=== PATIENT | female | born 1965 | race Caucasian/White ===

== ENCOUNTER 2020-06-24 06:12 | Outpatient (REF) | payer OTHER, SELFPAY ==
[2020-06-24 07:22] LABS: Hematocrit 40.3 % (37-47); Hemoglobin 12.6 g/dl (12.0-16.0); Mean Corpuscular HGB Conc 31.3 g/dl (31.0-35.0); Mean Corpuscular Hemoglobin 28.8 pg (27.0-33.0); Mean Corpuscular Volume 92.2 fL (80-98); Mean Platelet Volume 12.5 fL (9.4-12.3); Platelet Count 257 X10*3/uL (160-400); Red Blood Count 4.37 X10*6/uL (4.20-5.50); Red Cell Distribution Width 13.5 % (11.0-16.0); White Blood Count 7.2 X10*3/uL (4.8-10.8)
[2020-06-24 08:06] LABS: Alanine Aminotransferase 54 U/L (0-31); Albumin Level 4.3 g/dL (3.5-5.0); Alkaline Phosphatase 64 U/L (39-117); Anion Gap 12 (12-20); Aspartate Amino Transferase 41 U/L (5-31); Bilirubin Total 0.5 mg/dL (0.0-1.0); Blood Urea Nitrogen 19 mg/dL (9-16); Calcium 9.5 mg/dL (8.4-10.2); Carbon Dioxide 29 mmol/L (22-29); Chloride 106 mmol/L (96-108); Cholesterol 192 mg/dL; Estimated Glomerular Filt Rate > 60; Glucose Fasting 91 mg/dL (60-99); HDL Cholesterol 61 mg/dL; LDL Cholesterol Calculated 116 mg/dl; Potassium 4.6 mmol/l (3.3-5.1); Sodium 142 mmol/L (135-145); Total Protein 6.8 g/dL (6.5-8.0); Triglycerides 79 mg/dL
== END 2020-06-24 06:13 | disposition home or self-care (01) ==
LOC: HO.LAB 06:12
PROVIDERS: PCP Internal Medicine; Visit Provider Internal Medicine
DX: R94.5 Abnormal results of liver function studies (principal); J45.909 Unspecified asthma, uncomplicated; E78.2 Mixed hyperlipidemia
CPT/HCPCS: 36415; 80053; 80061; 85027

== ENCOUNTER 2020-08-02 07:08 | Day surgery (SDC) | payer OTHER, SELFPAY ==
[2020-08-01 09:51] VITALS: BMI 29.1
--- NOTE | 2020-08-01 10:06 | HO.ANESPROP2 ---
Documented by User: Kathi Schuler 08/01/20 10:15 HPI - Anesthesia Eval Consult details Narrative: 54yo F for Upper Endoscopy and Colon[facility] Past Medical History Medical History Anxiety Asthma FHx: colon cancer GERD (gastroesophageal reflux disease) History of mammogram Hypercholesterolemia Hypertension Hypothyroid Refused procedure, after thought Family History Family History Mother Myocardial infarct Colon cancer CVD (cardiovascular disease) Sister Colon cancer Surgical History Surgical History H/O colonoscopy Social History Social History Smoking Status: Never smoker Second Hand Smoke Exposure: No Use of substances other than those prescribed or required for medical reasons: No Advance Directives: No Advance Directives Information Provided: No Advance Directives on File: No Meds Allergies Allergy/AdvReac Type Severity Reaction Status Date / Time amoxicillin [Amoxicillin] Allergy Unknown UNKNOWN Verified 06/28/20 10:31 azithromycin Allergy Unknown rash Verified 06/28/20 10:31 penicillin V Allergy Unknown rash Verified 06/28/20 10:31 Home Medications Medication Instructions Recorded Confirmed Type albuterol sulfate 90 mcg/actuation 2 inh INHALATION Q6H PRN 06/28/20 07/11/20 History breath activated powder inhaler atorvastatin 20 mg tablet 20 mg PO DAILY 06/28/20 07/11/20 History cetirizine 10 mg tablet 10 mg PO DAILY 06/28/20 07/11/20 History fluticasone 250 mcg-salmeterol 50 1 inh INHALATION BID 06/28/20 07/11/20 History mcg/dose blistr powdr for inhalation lisinopril 20 mg tablet 20 mg PO DAILY 06/28/20 07/11/20 History montelukast 10 mg tablet 10 mg PO DAILY 06/28/20 07/11/20 History Exam Exam Date and Time: August 01, 2020 1006 Height,Weight and Vital Signs: Height 5 ft 5 in Weight 79.379 kg Pertinent Lab Results Pertinent Lab Results: Laboratory Tests 06/24/20 06/24/20 06:32 06:32 WBC 7.2 Hgb 12.6 Hct 40.3 Plt Count 257 Sodium 142 Potassium 4.6 Chloride 106 Carbon Dioxide 29 BUN 19 H Creatinine 0.91 Assessment and Plan Assessment Anesthesia Assessment: Chart Reviewed Documented by User: Vicki Soriano 08/02/20 07:37 PMFSH Past Medical History Medical History Anxiety Asthma FHx: colon cancer GERD (gastroesophageal reflux disease) History of mammogram Hypercholesterolemia Hypertension Hypothyroid Refused procedure, after thought Family History Family History Mother Myocardial infarct Colon cancer CVD (cardiovascular disease) Sister Colon cancer Surgical History Surgical History H/O colonoscopy Social History Social History Smoking Status: Never smoker Second Hand Smoke Exposure: No Use of substances other than those prescribed or required for medical reasons: No Advance Directives: No Advance Directives Information Provided: No Advance Directives on File: No Meds Allergies Allergy/AdvReac Type Severity Reaction Status Date / Time amoxicillin [Amoxicillin] Allergy Unknown UNKNOWN Verified 06/28/20 10:31 azithromycin Allergy Unknown rash Verified 06/28/20 10:31 penicillin V Allergy Unknown rash Verified 06/28/20 10:31 Home Medications Medication Instructions Recorded Confirmed Type albuterol sulfate 90 mcg/actuation 2 inh INHALATION Q6H PRN 06/28/20 07/11/20 History breath activated powder inhaler atorvastatin 20 mg tablet 20 mg PO DAILY 06/28/20 07/11/20 History cetirizine 10 mg tablet 10 mg PO DAILY 06/28/20 07/11/20 History fluticasone 250 mcg-salmeterol 50 1 inh INHALATION BID 06/28/20 07/11/20 History mcg/dose blistr powdr for inhalation lisinopril 20 mg tablet 20 mg PO DAILY 06/28/20 07/11/20 History montelukast 10 mg tablet 10 mg PO DAILY 06/28/20 07/11/20 History Exam Airway Mallampati Class: I TM Dist: >3cm Neck ROM: Full Loose/Missing/Broken Teeth: No Heart: RRR Lungs: CTA Assessment and Plan Assessment Anesthesia Assessment: Anesthesia Plan Discussed and Chart Reviewed Final Anesthetic Review NPO: Yes Final Preanesthetic Review: Meds/Allgs Chart Reviewed, Consent Obtained/Reviewed and Anes Risks/Benef Reviewed Patient Risk: Intermediate Procedure Risk: Intermediate Anesthetic Plan Anesthetic Plan: MAC: Disposition: Standard PACU
--- NOTE | 2020-08-02 07:25 | MHC.SHP ---
Pre-Procedural Eval Section B Chief Complaint: GERD,SCREENING Details of Present Illness: see H&P no changes Relevant Family History (Specify if Yes): No Relevant Social History: None Present Medications: see Short Stay Collaborative assessment Medical History: No relevant PMH History of Previous Operations: No relevant previous surgery Allergies: Allergies Allergy/AdvReac Type Severity Reaction Status Date / Time amoxicillin [Amoxicillin] Allergy Unknown UNKNOWN Verified 06/28/20 10:31 azithromycin Allergy Unknown rash Verified 06/28/20 10:31 penicillin V Allergy Unknown rash Verified 06/28/20 10:31 Review of Systems Sugical H&P ROS: Negative: Constitution, Cardiovascular, Respiratory, Neurological, Psychiatric, Hem-Onc, Allergic/Immunologic, Gastrointestinal, Genitourinary, Musculoskeletal, Integumentary, Endocrine and Eyes/Ears/Nose/Throat Exam Surgical H&P Exam: Normal: HEENT, Normal: Heart, Normal: Lungs, Normal: Extremities, Normal: Abdomen, Normal: Skin and Normal: Neurological Plan Diagnosis/Plan: Unchanged Patient has been examined and remains a candidate for the planned procedure
--- NOTE | 2020-08-02 07:29 | HO.ANESPROP2 ---
[facility] Past Medical History Medical History Anxiety Asthma FHx: colon cancer GERD (gastroesophageal reflux disease) History of mammogram Hypercholesterolemia Hypertension Hypothyroid Refused procedure, after thought Family History Family History Mother Myocardial infarct Colon cancer CVD (cardiovascular disease) Sister Colon cancer Surgical History Surgical History H/O colonoscopy Social History Social History Smoking Status: Never smoker Second Hand Smoke Exposure: No Use of substances other than those prescribed or required for medical reasons: No Advance Directives: No Advance Directives Information Provided: No Advance Directives on File: No Meds Allergies Allergy/AdvReac Type Severity Reaction Status Date / Time amoxicillin [Amoxicillin] Allergy Unknown UNKNOWN Verified 06/28/20 10:31 azithromycin Allergy Unknown rash Verified 06/28/20 10:31 penicillin V Allergy Unknown rash Verified 06/28/20 10:31 Home Medications Medication Instructions Recorded Confirmed Type albuterol sulfate 90 mcg/actuation 2 inh INHALATION Q6H PRN 06/28/20 07/11/20 History breath activated powder inhaler atorvastatin 20 mg tablet 20 mg PO DAILY 06/28/20 07/11/20 History cetirizine 10 mg tablet 10 mg PO DAILY 06/28/20 07/11/20 History fluticasone 250 mcg-salmeterol 50 1 inh INHALATION BID 06/28/20 07/11/20 History mcg/dose blistr powdr for inhalation lisinopril 20 mg tablet 20 mg PO DAILY 06/28/20 07/11/20 History montelukast 10 mg tablet 10 mg PO DAILY 06/28/20 07/11/20 History Exam Exam Date and Time: August 02, 2020 0729 Height,Weight and Vital Signs: Height 5 ft 5 in Weight 79.379 kg Airway Mallampati Class: I TM Dist: >3cm Neck ROM: Full Loose/Missing/Broken Teeth: No Heart: RRR Lungs: CTA
--- NOTE | 2020-08-02 07:33 | HO.ANESPROP2 ---
[facility] Past Medical History Medical History Anxiety Asthma FHx: colon cancer GERD (gastroesophageal reflux disease) History of mammogram Hypercholesterolemia Hypertension Hypothyroid Refused procedure, after thought Family History Family History Mother Myocardial infarct Colon cancer CVD (cardiovascular disease) Sister Colon cancer Surgical History Surgical History H/O colonoscopy Social History Social History Smoking Status: Never smoker Second Hand Smoke Exposure: No Use of substances other than those prescribed or required for medical reasons: No Advance Directives: No Advance Directives Information Provided: No Advance Directives on File: No Meds Allergies Allergy/AdvReac Type Severity Reaction Status Date / Time amoxicillin [Amoxicillin] Allergy Unknown UNKNOWN Verified 06/28/20 10:31 azithromycin Allergy Unknown rash Verified 06/28/20 10:31 penicillin V Allergy Unknown rash Verified 06/28/20 10:31 Home Medications Medication Instructions Recorded Confirmed Type albuterol sulfate 90 mcg/actuation 2 inh INHALATION Q6H PRN 06/28/20 07/11/20 History breath activated powder inhaler atorvastatin 20 mg tablet 20 mg PO DAILY 06/28/20 07/11/20 History cetirizine 10 mg tablet 10 mg PO DAILY 06/28/20 07/11/20 History fluticasone 250 mcg-salmeterol 50 1 inh INHALATION BID 06/28/20 07/11/20 History mcg/dose blistr powdr for inhalation lisinopril 20 mg tablet 20 mg PO DAILY 06/28/20 07/11/20 History montelukast 10 mg tablet 10 mg PO DAILY 06/28/20 07/11/20 History Exam Exam Date and Time: August 02, 2020 0733 Height,Weight and Vital Signs: Height 5 ft 5 in Weight 79.379 kg Assessment and Plan Assessment Anesthesia Assessment: Anesthesia Plan Discussed and Chart Reviewed Final Anesthetic Review NPO: Yes ASA Class: II Final Preanesthetic Review: Meds/Allgs Chart Reviewed, Consent Obtained/Reviewed and Anes Risks/Benef Reviewed Patient Risk: Intermediate Procedure Risk: Intermediate Anesthetic Plan Anesthetic Plan: MAC: Disposition: Standard PACU
[2020-08-02 07:34] VITALS: BP 147/80; PULSE 79; RESP 79; TEMP 36.6; O2SAT 99
[2020-08-02] MEDS: Lactated Ringers 1,000 ML 100 ML IVCONT (07:38)
[2020-08-02 08:14] VITALS: BP 109/62; PULSE 89; RESP 18; TEMP 36.5; O2SAT 97
--- NOTE | 2020-08-02 08:25 | PM.OP ---
Brief Operative Note Date of procedure: 08/02/20 Pre-op diagnosis: gerd, screening Post-op diagnosis: same (colon polyp) Procedure: egd,colon Surgeon: Fredy Cordero Anesthesia: MAC Estimated blood loss (mL): 5 Pathology: other (antral,egj biopsies, polpy at 20cm) Condition: stable Disposition: PACU
[2020-08-02 08:29] VITALS: BP 136/77; PULSE 69; RESP 15; TEMP 36.5; O2SAT 98
--- NOTE | 2020-08-02 08:38 | OP_ITS ---
SURGEON: Fredy Cordero MD INDICATIONS: 1. Gastroesophageal reflux disease. 2. Colon cancer screening. PREOPERATIVE DIAGNOSIS: POSTOPERATIVE DIAGNOSIS: PROCEDURE PERFORMED: ESTIMATED BLOOD LOSS: COMPLICATIONS: ANESTHESIA: ASSISTANTS: SPECIMENS: PROCEDURE: 1. Upper endoscopy with biopsy. 2. Colonoscopy to the terminal ileum with snare polypectomy. MEDICATIONS: Monitored anesthesia care. DESCRIPTION OF PROCEDURE: History and physical performed. The risks and benefits of the procedure were explained to the patient. Informed consent was obtained. The patient was placed in the left lateral decubitus position. The Olympus video gastroscope was introduced into the esophagus, stomach, and duodenum. Examination was performed and the scope was removed. She was repositioned for colonoscopy. A digital rectal exam was performed and was found to be normal. The Olympus pediatric video colonoscope was introduced into the rectum and advanced to the cecum without difficulty. The cecum was identified by transillumination, palpation, and identification of ileocecal valve. Examination was performed. The scope was removed. She tolerated both procedures well, was returned to recovery area in stable condition. FINDINGS: UPPER ENDOSCOPY: Esophagus: The esophagus showed a very mild distal esophagitis and small hiatal hernia. Stomach: The stomach showed no evidence of masses, ulcers or polyps. Duodenum: The bulb and second portion were normal. Biopsies were obtained from the EG junction and antrum. COLONOSCOPY: The terminal ileum was normal. The visualized colonic mucosa was normal. The quality of the prep was good. A single polyp at 20 cm measuring approximately 4-5 mm was removed with a snare and recovered via suction. No other polyps were identified. Retroflexed examination was normal. IMPRESSION: 1. Gastroesophageal reflux disease with very mild esophagitis. 2. Colon polyp. RECOMMENDATION: Follow up the biopsy results. MD FELISA Mckeon/SEAN / [id number]
== END 2020-08-02 09:05 | disposition home or self-care (01) ==
PROVIDERS: PCP Internal Medicine; Visit Provider Internal Medicine Gastroenterology
PROC: (CPT 45385; principal; 2020-08-02 08:30)
DX: Z12.11 Encounter for screening for malignant neoplasm of colon (principal); Z80.0 Family history of malignant neoplasm of digestive organs; Z86.010 Personal history of colon polyps; K63.5 Polyp of colon; K21.00 Gastro-esophageal reflux disease with esophagitis, without bleeding; K44.9 Diaphragmatic hernia without obstruction or gangrene; I10 Essential (primary) hypertension; J45.909 Unspecified asthma, uncomplicated; E78.00 Pure hypercholesterolemia, unspecified; Z79.51 Long term (current) use of inhaled steroids; Z79.899 Other long term (current) drug therapy; Z88.0 Allergy status to penicillin
CPT/HCPCS: 45385; 43239; 88305; 88342

== ENCOUNTER 2020-09-29 12:15 | Outpatient (REF) | payer OTHER, SELFPAY | END 2020-09-29 12:16 | disposition home or self-care (01) | LOC: HO.LAB 12:15 | PROVIDERS: Visit Provider Internal Medicine | DX: Z20.828 Contact with and (suspected) exposure to other viral communicable diseases (principal) | CPT/HCPCS: 36415; C9803; U0003 ==

== ENCOUNTER 2020-10-14 15:55 | Outpatient (REF) | payer OTHER, SELFPAY ==
--- NOTE | 2020-10-14 | MM_ITS ---
EXAMINATION: MM SCREENING DIGITAL BREAST TOMOSYNTHESIS, BILATERAL CLINICAL INFORMATION: Screening. Asymptomatic. The lifetime risk of breast cancer based on the Tyrer-Cuzick Model is 22%. COMPARISON: Mammography: 10/09/2019, 10/03/2018, 08/30/2017, 08/10/2016 TECHNIQUE: Digital breast tomosynthesis is performed in both the craniocaudal and mediolateral oblique views along with computer-aided detection (CAD). Synthesized 2D images are generated from the tomosynthesis. Additional right MLO view is provided. FINDINGS: There are scattered areas of fibroglandular density (ACR BI-RADS breast composition Category b). Parenchymal pattern is similar to prior studies. There is no developing density or interval mass or architectural abnormality. There are scattered benign calcifications. The axilla and skin contours are unremarkable. No significant changes. MM/MM tomosynthesis screening BI IMPRESSION: No mammographic evidence of malignancy. ASSESSMENT: BI-RADS 1: Negative RECOMMENDATION: 1. Routine annual mammography screening. 2. The lifetime risk of breast cancer based on the Tyrer-Cuzick Model is 22%. Additional annual adjunct screening with breast MRI may be of benefit in women with a risk score of 20% or greater. This patient's information was entered into a reminder system with a target due date for their next mammogram.
== END 2020-10-14 15:56 | disposition home or self-care (01) ==
LOC: HO.MAMMO 15:55
PROVIDERS: PCP Internal Medicine; Visit Provider Internal Medicine
DX: Z12.31 Encounter for screening mammogram for malignant neoplasm of breast (principal)
CPT/HCPCS: 77063; 77067

== ENCOUNTER 2020-12-29 06:04 | Outpatient (REF) | payer OTHER, SELFPAY ==
[2020-12-29 07:00] LABS: Alanine Aminotransferase 47 U/L (0-31); Albumin Level 4.3 g/dL (3.5-5.0); Alkaline Phosphatase 58 U/L (39-117); Anion Gap 11 (12-20); Aspartate Amino Transferase 38 U/L (5-31); Bilirubin Total 0.5 mg/dL (0.0-1.0); Blood Urea Nitrogen 25 mg/dL (9-16); Calcium 9.6 mg/dL (8.4-10.2); Carbon Dioxide 28 mmol/L (22-29); Chloride 105 mmol/L (96-108); Cholesterol 210 mg/dL; Estimated Glomerular Filt Rate > 60; Glucose Fasting 98 mg/dL (60-99); HDL Cholesterol 71 mg/dL; LDL Cholesterol Calculated 127 mg/dl; Potassium 4.3 mmol/L (3.3-5.1); Sodium 140 mmol/L (135-145); Triglycerides 61 mg/dL
[2020-12-29 07:06] LABS: Hematocrit 38.3 % (37-47); Hemoglobin 12.3 g/dl (12.0-16.0); Mean Corpuscular HGB Conc 32.1 g/dl (31.0-35.0); Mean Corpuscular Hemoglobin 29.7 pg (27.0-33.0); Mean Corpuscular Volume 92.5 fL (80-98); Mean Platelet Volume 12.4 fL (9.4-12.3); Platelet Count 239 X10*3/uL (160-400); Red Blood Count 4.14 X10*6/uL (4.20-5.50); Red Cell Distribution Width 14.1 % (11.0-16.0); White Blood Count 7.3 X10*3/uL (4.8-10.8)
[2020-12-29 07:21] LABS: TSH reflex Free T4 1.87 uIU/mL (0.32-4.0)
[2020-12-29 07:45] LABS: Glucose Urine UA NEG (NEG); Leukocyte Esterase Urine TRACE (NEG); Nitrite Urine NEG (NEG); Specific Gravity - Urine 1.025 (1.005-1.025); Urine Blood NEG (NEG); Urine Ketones NEG (NEG); Urine Protein NEG (NEG-TRACE)
[2020-12-29 08:29] LABS: Appearance Urine CLEAR; Color Urine YELLOW
[2020-12-29 08:44] LABS: RBC Urine 0 /HPF (0); Squamous Epithelial Cell Urine 2+ /LPF
== END 2020-12-29 06:05 | disposition home or self-care (01) ==
LOC: HO.LAB 06:04
PROVIDERS: PCP Internal Medicine; Visit Provider Internal Medicine
DX: K21.9 Gastro-esophageal reflux disease without esophagitis (principal); E78.00 Pure hypercholesterolemia, unspecified; E03.9 Hypothyroidism, unspecified; I10 Essential (primary) hypertension
CPT/HCPCS: 36415; 80053; 80061; 81001; 81003; 84443; 85027

== ENCOUNTER 2021-08-02 13:09 | Outpatient (REF) | payer OTHER, SELFPAY | END 2021-08-02 13:10 | disposition home or self-care (01) | LOC: HO.LAB 13:09 | PROVIDERS: PCP Internal Medicine; Visit Provider Internal Medicine | DX: Z20.822 Contact with and (suspected) exposure to COVID-19 (principal) | CPT/HCPCS: C9803; U0003; U0005 ==

== ENCOUNTER 2021-08-03 06:11 | Outpatient (REF) | payer OTHER, SELFPAY ==
[2021-08-03 08:22] LABS: Alanine Aminotransferase 84 U/L (0-31); Alkaline Phosphatase 66 U/L (39-117); Anion Gap 11 (12-20); Aspartate Amino Transferase 77 U/L (5-31); Bilirubin Total 0.4 mg/dL (0.0-1.0); Blood Urea Nitrogen 11 mg/dL (9-16); Calcium 9.4 mg/dL (8.4-10.2); Carbon Dioxide 27 mmol/L (22-29); Chloride 108 mmol/L (96-108); Cholesterol 183 mg/dL; Estimated Glomerular Filt Rate > 60; Glucose Fasting 98 mg/dL (60-99); HDL Cholesterol 70 mg/dL; LDL Cholesterol Calculated 97 mg/dl; Potassium 4.3 mmol/L (3.3-5.1); Sodium 142 mmol/L (135-145); Total Protein 6.8 g/dL (6.5-8.0); Triglycerides 80 mg/dL
[2021-08-03 08:38] LABS: TSH reflex Free T4 1.35 uIU/mL (0.32-4.0)
[2021-08-03 09:01] LABS: Appearance Urine CLEAR; Color Urine YELLOW; Glucose Urine UA NEG (NEG); Leukocyte Esterase Urine NEG (NEG); Nitrite Urine NEG (NEG); Specific Gravity - Urine 1.015 (1.005-1.025); Urine Blood NEG (NEG); Urine Ketones NEG (NEG); Urine Protein NEG (NEG-TRACE)
== END 2021-08-03 06:12 | disposition home or self-care (01) ==
LOC: HO.LAB 06:11
PROVIDERS: PCP Internal Medicine; Visit Provider Internal Medicine
DX: E03.9 Hypothyroidism, unspecified (principal); E78.00 Pure hypercholesterolemia, unspecified; I10 Essential (primary) hypertension; K21.9 Gastro-esophageal reflux disease without esophagitis
CPT/HCPCS: 36415; 80053; 80061; 81003; 84443

== ENCOUNTER 2021-11-14 14:50 | Outpatient (REF) | payer OTHER, SELFPAY ==
--- NOTE | ~2021-11-14 | MM_ITS ---
EXAMINATION: MM SCREENING DIGITAL BREAST TOMOSYNTHESIS, BILATERAL CLINICAL INFORMATION: Screening. Asymptomatic. The lifetime risk of breast cancer based on the Tyrer-Cuzick Model is 13%. COMPARISON: Mammography: 10/14/2020, 10/09/2019, 10/03/2018, 08/30/2017 TECHNIQUE: Digital breast tomosynthesis is performed in both the craniocaudal and mediolateral oblique views along with computer-aided detection (CAD). Synthesized 2D images are generated from the tomosynthesis. FINDINGS: There are scattered areas of fibroglandular density (ACR BI-RADS breast composition Category b). There are no significant masses, abnormal calcifications, or other abnormalities. Parenchymal pattern is similar to prior studies. There are no significant changes. MM/MM tomosynthesis screening BI IMPRESSION: No mammographic evidence of malignancy. ASSESSMENT: BI-RADS 1: Negative RECOMMENDATION: Routine annual mammography screening. This patient's information was entered into a reminder system with a target due date for their next mammogram.
== END 2021-11-14 14:51 | disposition home or self-care (01) ==
LOC: HO.MAMMO 14:50
PROVIDERS: Visit Provider Internal Medicine
DX: Z12.31 Encounter for screening mammogram for malignant neoplasm of breast (principal)
CPT/HCPCS: 77063; 77067

== ENCOUNTER 2021-12-27 06:01 | Outpatient (REF) | payer OTHER, SELFPAY ==
[2021-12-27 07:26] LABS: Hematocrit 38.4 % (37.0-47.0); Mean Corpuscular HGB Conc 31.3 g/dl (31.0-35.0); Mean Corpuscular Volume 92.8 fL (80.0-98.0); Mean Platelet Volume 11.7 fL (9.4-12.3); Platelet Count 234 X10*3/uL (160-400); Red Blood Count 4.14 X10*6/uL (4.20-5.50); Red Cell Distribution Width 14.3 % (11.0-16.0); White Blood Count 7.8 X10*3/uL (4.8-10.8)
[2021-12-27 07:53] LABS: Alanine Aminotransferase 34 U/L (0-31); Albumin Level 4.2 g/dL (3.5-5.0); Alkaline Phosphatase 50 U/L (39-117); Anion Gap 13 (12-20); Aspartate Amino Transferase 29 U/L (5-31); Bilirubin Direct 0.2 mg/dL (0.0-0.5); Bilirubin Total 0.6 mg/dL (0.0-1.0); Blood Urea Nitrogen 17 mg/dL (9-16); Calcium 9.7 mg/dL (8.4-10.2); Carbon Dioxide 27 mmol/L (22-29); Chloride 105 mmol/L (96-108); Cholesterol 210 mg/dL; Estimated Glomerular Filt Rate > 60; Glucose Fasting 88 mg/dL (60-99); HDL Cholesterol 78 mg/dL; LDL Cholesterol Calculated 119 mg/dl; Potassium 4.3 mmol/L (3.3-5.1); Sodium 141 mmol/L (135-145); Total Protein 6.7 g/dL (6.5-8.0); Triglycerides 67 mg/dL
[2021-12-27 11:14] LABS: Creatinine Urine 155.78 mg/dL; Microalbum/Creatinine Ratio Ur 5.1 ug/mg cr
[2021-12-27 11:58] LABS: TSH reflex Free T4 2.42 uIU/mL (0.32-4.0)
== END 2021-12-27 06:02 | disposition home or self-care (01) ==
LOC: HO.LAB 06:01
PROVIDERS: Internal Medicine; PCP Physician Assistant; Visit Provider Physician Assistant
DX: E03.9 Hypothyroidism, unspecified (principal); I10 Essential (primary) hypertension; E78.00 Pure hypercholesterolemia, unspecified; R79.89 Other specified abnormal findings of blood chemistry
CPT/HCPCS: 36415; 80053; 80061; 80076; 82043; 82248; 84443; 85027

== ENCOUNTER 2022-05-03 10:13 | Outpatient (REF) | payer OTHER, SELFPAY ==
[2022-05-04 13:18] LABS: BV Int Neg Control Negative (Negative); BV Int Pos Control Positive (Positive)
[2022-05-10 15:21] LABS: HPV mRNA E6/E7 rflx Not Detected (Not Detected)
== END 2022-05-03 10:14 | disposition home or self-care (01) ==
LOC: HO.LAB 10:13
PROVIDERS: Visit Provider Advanced Practice Midwife
DX: Z01.419 Encounter for gynecological examination (general) (routine) without abnormal findings (principal); Z11.51 Encounter for screening for human papillomavirus (HPV); N89.8 Other specified noninflammatory disorders of vagina
CPT/HCPCS: 87480; 87510; 87624; 87660; 88142

== ENCOUNTER 2022-06-19 09:37 | Outpatient (REF) | payer OTHER, SELFPAY | END 2022-06-19 09:38 | disposition home or self-care (01) | LOC: HO.LAB 09:37 | PROVIDERS: PCP Physician Assistant; Visit Provider Advanced Practice Midwife | DX: N84.1 Polyp of cervix uteri (principal) | CPT/HCPCS: 57500; 58558; 88305 ==

== ENCOUNTER 2022-06-19 10:23 | Outpatient (REF) | payer OTHER, SELFPAY ==
[2022-06-21 22:41] LABS: HPV mRNA E6/E7 rflx Not Detected (Not Detected)
== END 2022-06-19 10:24 | disposition home or self-care (01) ==
LOC: HO.LNP 10:23
PROVIDERS: Visit Provider Advanced Practice Midwife
DX: Z11.51 Encounter for screening for human papillomavirus (HPV) (principal); R87.615 Unsatisfactory cytologic smear of cervix
CPT/HCPCS: 87624; 88142

== ENCOUNTER 2022-06-28 | Outpatient (REF) | payer OTHER, SELFPAY ==
--- NOTE | ~2022-06-28 | XR_ITS ---
EXAMINATION: XR SHOULDER, LEFT CLINICAL INFORMATION: Pain. COMPARISON: None TECHNIQUE: AP external rotation, Grashey, scapular Y, and axillary views of the left shoulder. FINDINGS: The bones and soft tissues are normal. No fracture. Glenohumeral and acromioclavicular alignment is anatomic with normal joint space. No abnormal soft tissue calcifications. XR/XR shoulder LT min 2V IMPRESSION: Unremarkable left shoulder.
== END 2022-06-28 00:01 ==
LOC: HO.HOSX
PROVIDERS: Visit Provider Orthopaedic Surgery
DX: M25.512 Pain in left shoulder (principal)
CPT/HCPCS: 20610; 73030; J1100

== ENCOUNTER 2022-08-02 12:13 | Outpatient (REF) | payer OTHER, SELFPAY ==
[2022-08-02 13:24] LABS: Influenza A PCR NEGATIVE (Negative); Influenza B PCR NEGATIVE (Negative); Resp Syncy Virus RNA Qual PCR NEGATIVE (Negative); SARS COV2 PCR INHOUSE NEGATIVE (Negative)
== END 2022-08-02 12:14 | disposition home or self-care (01) ==
LOC: HO.XRAY 12:13
PROVIDERS: PCP Physician Assistant; Visit Provider Physician Assistant
DX: Z20.822 Contact with and (suspected) exposure to COVID-19 (principal); J40 Bronchitis, not specified as acute or chronic
CPT/HCPCS: 0241U

== ENCOUNTER 2022-08-03 06:06 | Outpatient (REF) | payer OTHER, SELFPAY ==
--- NOTE | ~2022-08-03 | XR_ITS ---
EXAMINATION: XR CHEST CLINICAL INFORMATION: J40 - Bronchitis, not specified as acute or chronic COMPARISON: Chest radiographs 04/07/2020, 07/28/2014 TECHNIQUE: 2 views of the chest were obtained. FINDINGS: The lungs are clear. The vascularity is normal. There is no airspace consolidation or groundglass opacity or effusion. No hyperinflation. No coarsening of the bronchiolar markings. The costophrenic sulci are clear. The heart is normal in size. The hilar and mediastinal contours and bony structures are unremarkable. XR/XR chest 2V IMPRESSION: Unremarkable examination.
[2022-08-03 07:37] LABS: Hematocrit 39.7 % (37.0-47.0); Hemoglobin 12.7 g/dl (12.0-16.0); Mean Corpuscular Hemoglobin 29.3 pg (27.0-33.0); Mean Corpuscular Volume 91.5 fL (80.0-98.0); Mean Platelet Volume 11.5 fL (9.4-12.3); Platelet Count 271 X10*3/uL (160-400); Red Blood Count 4.34 X10*6/uL (4.20-5.50); Red Cell Distribution Width 13.5 % (11.0-16.0); White Blood Count 7.5 X10*3/uL (4.8-10.8)
[2022-08-03 08:02] LABS: Alanine Aminotransferase 26 U/L (0-31); Albumin Level 4.3 g/dL (3.5-5.0); Alkaline Phosphatase 60 U/L (39-117); Anion Gap 16 (12-20); Aspartate Amino Transferase 21 U/L (5-31); Bilirubin Total 0.4 mg/dL (0.0-1.0); Blood Urea Nitrogen 16 mg/dL (9-16); Calcium 9.8 mg/dL (8.4-10.2); Carbon Dioxide 26 mmol/L (22-29); Chloride 105 mmol/L (96-108); Cholesterol 226 mg/dL; Estimated Glomerular Filt Rate > 60; Glucose Fasting 90 mg/dL (60-99); HDL Cholesterol 86 mg/dL; LDL Cholesterol Calculated 129 mg/dl; Potassium 4.1 mmol/L (3.3-5.1); Sodium 143 mmol/L (135-145); Total Protein 7.1 g/dL (6.5-8.0); Triglycerides 55 mg/dL
[2022-08-03 08:21] LABS: TSH reflex Free T4 1.04 uIU/mL (0.32-4.0)
== END 2022-08-03 06:07 | disposition home or self-care (01) ==
LOC: HO.XRAY 06:06
PROVIDERS: PCP Physician Assistant; Visit Provider Physician Assistant
DX: J40 Bronchitis, not specified as acute or chronic (principal); I10 Essential (primary) hypertension; E78.00 Pure hypercholesterolemia, unspecified; E03.9 Hypothyroidism, unspecified
CPT/HCPCS: 36415; 71046; 80053; 80061; 84443; 85027

== ENCOUNTER 2022-11-23 15:45 | Outpatient (REF) | payer OTHER, SELFPAY ==
--- NOTE | ~2022-11-23 | MM_ITS ---
EXAMINATION: MM SCREENING DIGITAL BREAST TOMOSYNTHESIS, BILATERAL CLINICAL INFORMATION: Screening. Asymptomatic. The lifetime risk of breast cancer based on the Tyrer-Cuzick Model is 12%. COMPARISON: Mammography: 11/14/2021, 10/14/2020, 10/09/2019 TECHNIQUE: Digital breast tomosynthesis is performed in both the craniocaudal and mediolateral oblique views along with computer-aided detection (CAD). Synthesized 2D images are generated from the tomosynthesis. FINDINGS: There are scattered areas of fibroglandular density (ACR BI-RADS breast composition Category b). There are no significant masses, abnormal calcifications, or other abnormalities. Parenchymal pattern is similar to prior studies. There is no developing density or architectural abnormality. The axilla and skin contours are unremarkable. No significant changes. MM/MM tomosynthesis screening BI IMPRESSION: No mammographic evidence of malignancy. ASSESSMENT: BI-RADS 1: Negative RECOMMENDATION: Routine annual mammography screening. This patient's information was entered into a reminder system with a target due date for their next mammogram.
== END 2022-11-23 15:46 | disposition home or self-care (01) ==
LOC: HO.MAMMO 15:45
PROVIDERS: PCP Physician Assistant; Visit Provider Physician Assistant
DX: Z12.31 Encounter for screening mammogram for malignant neoplasm of breast (principal)
CPT/HCPCS: 77063; 77067

== ENCOUNTER 2022-12-06 06:00 | Outpatient (REF) | payer OTHER, SELFPAY ==
[2022-12-06 07:31] LABS: Hematocrit 39.7 % (37.0-47.0); Hemoglobin 12.6 g/dl (12.0-16.0); Mean Corpuscular HGB Conc 31.7 g/dl (31.0-35.0); Mean Corpuscular Hemoglobin 28.8 pg (27.0-33.0); Mean Corpuscular Volume 90.6 fL (80.0-98.0); Mean Platelet Volume 12.3 fL (9.4-12.3); Platelet Count 263 X10*3/uL (160-400); Red Blood Count 4.38 X10*6/uL (4.20-5.50); Red Cell Distribution Width 13.4 % (11.0-16.0)
[2022-12-06 08:00] LABS: Alanine Aminotransferase 41 U/L (0-31); Albumin Level 4.1 g/dL (3.5-5.0); Alkaline Phosphatase 57 U/L (39-117); Aspartate Amino Transferase 34 U/L (5-31); Bilirubin Direct < 0.2 mg/dL (0.0-0.5); Bilirubin Total 0.5 mg/dL (0.0-1.0); Lipase 38 U/L (8-78); Total Protein 6.6 g/dL (6.5-8.0)
== END 2022-12-06 06:01 | disposition home or self-care (01) ==
LOC: HO.LAB 06:00
PROVIDERS: PCP Physician Assistant; Visit Provider Internal Medicine Gastroenterology
DX: K21.9 Gastro-esophageal reflux disease without esophagitis (principal)
CPT/HCPCS: 36415; 80076; 83690; 85027

== ENCOUNTER 2022-12-19 07:46 | Outpatient (REF) | payer OTHER, SELFPAY ==
--- NOTE | ~2022-12-19 | US_ITS ---
EXAMINATION: US ABDOMEN COMPLETE CLINICAL INFORMATION: Gastroesophageal reflux/gas bloat syndrome. COMPARISON: CT abdomen and pelvis 02/02/2020. Ultrasound abdomen complete 11/26/2019. TECHNIQUE: Real-time imaging of the abdominal viscera. FINDINGS: PANCREAS: The head and body appear normal. The tail is obscured by bowel gas. ABDOMINAL AORTA: The proximal and mid abdominal aorta are normal in caliber. The distal abdominal aorta is obscured by bowel gas. INFERIOR VENA CAVA: Visualized portions are normal. LIVER: Normal. The liver is normal in size. The liver contour is normal. Parenchymal echogenicity is normal. No focal hepatic lesion. There is no intrahepatic biliary duct dilatation seen. GALLBLADDER: Normal. The gallbladder is physiologically distended without evidence of stones, sludge, polyps, wall thickening or pericholecystic fluid. COMMON BILE DUCT: Normal in caliber measuring 0.3 cm in diameter. RIGHT KIDNEY: A 6 mm nonobstructing calculus is seen in the lower pole. No focal parenchymal lesions. The kidney measures 10.3 cm in maximum dimension. LEFT KIDNEY: No definite calculi seen. No focal parenchymal lesions. The kidney measures 10.2 cm in maximum dimension. SPLEEN: Normal. The spleen measures 8.8 cm in maximum dimension. FREE FLUID: None. US/US abdomen complete IMPRESSION: 6 mm nonobstructing right renal calculus. No definite left renal calculi by ultrasound, though calculi are present on CT from 02/02/2020. No cholelithiasis or biliary ductal dilatation.
== END 2022-12-19 07:47 | disposition home or self-care (01) ==
LOC: HO.US 07:46
PROVIDERS: PCP Physician Assistant; Visit Provider Internal Medicine Gastroenterology
DX: K21.9 Gastro-esophageal reflux disease without esophagitis (principal); K92.89 Other specified diseases of the digestive system
CPT/HCPCS: 76700

== ENCOUNTER 2023-08-28 13:07 | Outpatient (AMB) | payer OTHER, SELFPAY ==
[2023-08-28 13:11] VITALS: BP 126/80; PULSE 84; O2SAT 100; BMI 30.2
--- NOTE | 2023-08-28 13:11 | A.OFFPC_ITS ---
Vital Signs 08/28/23 13:11 Height 5 ft 4 in Weight 176 lb 2 oz BMI 30.2 BP 126/80 Blood Pressure Location Lt brachial Position Sitting Pulse 84 Pulse Source Pulse Oximeter Pulse Oximetry (%) 100 Oxygen Delivery Method Room Air Intake Visit Reasons: phy Intake Note: Patient is here today for a physical. 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 Accompanied by: Self / Same As Patient Allergies coconut oil Allergy (Severe, Verified 08/28/23 13:31) Hives amoxicillin [Amoxicillin] Allergy (Unknown, Verified 08/28/23 13:31) UNKNOWN azithromycin Allergy (Unknown, Verified 08/28/23 13:31) rash penicillin V Allergy (Unknown, Verified 08/28/23 13:31) rash Medication List - Last Reconciled 08/28/23 by Krish Levy PA-C albuterol sulfate 90 mcg/actuation 1 inh inhalation QID PRN 30 days atorvastatin 20 mg PO DAILY cetirizine 10 mg PO DAILY fluticasone propion-salmeterol 250-50 mcg/dose (Wixela Inhub) 1 ea inhalation BID 30 days levothyroxine 25 mcg PO DAILY lisinopril 20 mg PO DAILY montelukast 10 mg PO BEDTIME Tobacco use date assessed: 08/28/23 Dental Screening Dental Screen Date: 08/28/23 Did you have a dental visit in the last 12 months?: Yes Did you have a dental problem in the last 6 months where you did not have access to dental care?: No Was dental information given to patient?: Patient has dentist HPI phy HPI Details Patient is a 58-year-old female here today for routine annual physical. Patient has a past medical history significant for moderate persistent asthma, hypothyroidism, hypertension, hyperlipidemia family history of colon cancer. .. Concern--> continues intermittent hoarseness of voice ever since getting her COVID booster. She will ask her ENT specialist about visualizing her vocal cords. Asthma: Has been fairly well controlled with current maintenance inhalers. Rarely has accessory shins and does not report any nighttime awakenings with asthma symptoms. Continues to follow ENT specialist and gets allergy and get allergy inj. .. Hypothyroidism: Most recent TSH has been stable. Continues on levothyroxine 25 mcg. .. Hyperlipidemia: Patient continues on low to moderate bone see statin without any side effect. Will continue to follow fasting lipid panel with goal LDL to remain below 130 .. Hypertension: Blood pressure acceptable today in office. Will continue her current dose of lisinopril 20 mg. .. Obesity: Has gained weight since last office visit. BMI now at 30.2. Mammogram: Done in November 2022, BI-RADS 1 Colorectal cancer screening: Colonoscopy [place] [address] Cordero, hyperplastic polyp found, repeat 5 years due to family history . 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 Vaccines: Up-to-date with Tdap, up-to-date with COVID-19 vaccine., up-to-date with shingles vaccine , up-to-date with pneumonia vaccine. [facility] Medical History Elevated LFTs FHx: colon cancer GERD (gastroesophageal reflux disease) Hypertension History of mammogram Anxiety Hypothyroid Hypercholesterolemia Asthma Surgical History History of ankle surgery History of right knee surgery H/O colonoscopy Family History (Updated 08/28/23 @ 13:35 by Krish Levy PA-C) Mother Myocardial infarct, Onset Age: 74 Colon cancer CVD (cardiovascular disease) Sister Colon cancer Paternal Grandmother History of breast cancer Brother DMII (diabetes mellitus, type 2) Social History (Updated 08/28/23 @ 13:36 by Krish Levy PA-C) Housing: Apartment Alcohol intake: current Alcohol intake frequency: 3 or more drinks per day Alcohol type: beer Patient Tobacco Use Status: Never used Tobacco e-Cigarette/Vaping Use: Never Used Second Hand Smoke Exposure: No service: No Current occupational status: employed 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 1. Little interest or pleasure in doing things: not at all 2. Feeling down, depressed, or hopeless: not at all 3. Trouble falling or staying asleep, or sleeping too much: not at all 4. Feeling tired or having little energy: not at all 5. Poor appetite or overeating: not at all 6. Feeling bad about yourself - or that you are a failure or have let yourself or your family down: not at all 7. Trouble concentrating on things, such as reading the newspaper or watching television: not at all 8. Moving or speaking so slowly that other people could have noticed. Or the opposite - being so fidgety or restless that you have been moving around a lot more than usual: not at all 9. Thoughts that you would be better off or of hurting yourself in some way: not at all Total score: 0 Depression Screening Interpretation: Negative Depression Screening Done: Yes 52794 - PHQ-9 Billing: Yes Source: Developed by Drs. Chavez Hawk, Mary Ellen Mayes, Odell Crowe and colleagues, with an educational tamar from [employer]. Thrive Questionnaire Date Thrive assessed: 08/28/23 I am a: Patient What is your living situation today?: I have a steady place to live Within the past 12 months, did the food you bought not last and you didn't have the money to get more?: Never true Within the past 12 months, did you worry whether your food would run out before you got money to buy more?: Never true Do you have trouble paying for medicines?: No Do you have trouble getting transportation to medical appointments?: No Do you have trouble paying your heating and electricity bill?: No Do you have trouble taking care of your child, family member or friend?: No Do you have trouble with day-to-day activities such as bathing, preparing meals, shopping, managing finances, etc.?: No Are you currently unemployed and looking for a job?: No Are you interested in more education?: No Please select the resources that you would like help with: None Currently or been in a relationship where the following occur: no concerns reported AUDIT C Alcohol Use Questionnaire (AUDIT-C) 1. How often do you have a drink containing alcohol?: 2-3 times a week 2. How many drinks containing alcohol do you have on a typical day when you are drinking?: 3 or 4 3. How often do you have six or more drinks on one occasion?: Never Total Score: 4 SEPIDEH-7 AMB Questionnaire SEPIDEH-7 Date SEPIDEH - 7 assessed: 08/28/23 Feeling nervous, anxious, or on edge: 0 = Not at all Not being able to stop or control worryin = Not at all Worrying too much about different things: 0 = Not at all Trouble relaxin = Not at all Being so restless that it is hard to sit still: 0 = Not at all Becoming easily annoyed or irritable: 0 = Not at all Feeling afraid as if something awful might happen: 0 = Not at all Total SEPIDEH-7 score (0-4 normal; 5-9 mild; 10-14 moderate; 15-21 severe): 0 Source: Developed by Drs. Chavez Hawk, Mary Ellen Mayes, Odell Crowe and colleagues, with an educational tamar from [employer]. SEPIDEH-7 Assessment Billing SEPIDEH-7 Assessment Tool: SEPIDEH-7 Assessment 55736 Review of Systems Const Denies body aches, Denies chills, Denies excessive sweating, Denies fatigue, Denies fever(s) and Denies headache(s) Eyes Denies blurry vision ENT Denies dysphagia, Denies vertigo, Denies dizziness, Denies headache(s), Denies hearing loss and Denies tinnitus Card Denies chest pain, Denies chest pain with activity, Denies syncope, Denies irregular heart rhythm and Denies dyspnea Resp Denies chest congestion, Denies cough, Denies hemoptysis, Denies dyspnea and Denies wheezing GI Denies abdominal pain, Denies melena, Denies hematochezia, Denies coffee ground emesis, Denies dysphagia, Denies diarrhea, Denies nausea and Denies vomiting Denies urinary frequency, Denies dysuria, Denies urinary hesitancy and Denies urinary urgency Musc Denies arthralgias, Denies limited range of motion, Denies muscle cramps and Denies muscle weakness Skin/Breast Denies rash and Denies skin ulcer Neuro Denies Abnormal speech present, Denies confusion, Denies vertigo, Denies dizziness, Denies syncope, Denies headache(s), Denies memory loss and Denies seizure-like activity Psych Denies anxiety, Denies confusion, Denies depression, Denies memory loss, Denies panic attacks and Denies paranoia Endo Denies excessive sweating, Denies fatigue, Denies flushing, Denies polydipsia and Denies polyuria Aller/Immun Denies wheezing Physical exam (Primary Care) Vital Signs: Last Vital Signs Pulse 84 08/28/23 13:11 BP 126/80 08/28/23 13:11 Pulse Ox 100 08/28/23 13:11 Oxygen Delivery Method Room Air 08/28/23 13:11 BMI result Body Mass Index 30.2 Tobacco/Smoking Status: Tobacco use Status Tobacco use date assessed 08/28/23 08/28/23 13:23 Patient Tobacco Use Status Never used Tobacco 08/28/23 13:12 e-Cigarette/Vaping Use Never Used 08/28/23 13:12 PHQ-9: PHQ-9 Score PHQ-9: Total score 0 08/28/23 13:23 Depression Screening Interpretation: Negative Thrive Assessment: Date of Thrive Assessment Date Thrive assessed 08/28/23 08/28/23 13:19 Currently or been in a relationship where the following occur: no concerns reported Const General: cooperative, comfortable, no acute distress, alert and awake; No confusion Orientation/consciousness: oriented to person, oriented to place, patient oriented x3 and No confusion HENMT Head: Yes normocephalic Ears: external ears normal and TM's normal bilaterally Face and sinus: No sinus tenderness Mouth: Normal oral and palatal mucosa present and tongue normal Teeth and gingiva: dentition normal and gingiva normal Throat: Yes posterior oropharynx normal, Yes tonsils normal and Yes uvula midline Eyes Conjunctivae: conjunctivae normal Sclerae: sclerae normal Pupils: Equal, round and reactive pupils present EOM: EOMs intact bilaterally Direct Ophthalmoscopy: No no photophobia Neck Neck: Yes no lymphadenopathy, No tender and Yes no JVD Thyroid: Thyroid normal Carotids: no bruits Chest Chest palpation & inspection: no tenderness Resp Effort & Inspection: normal respiratory effort, no audible wheezes, not labored and no stridor Auscultation: no crackles, no rales, no rhonchi and no wheezes Cardio Jugular venous distension: no JVD Rate: regular rate, not bradycardic and not tachycardic Rhythm: regular rhythm Bruits: no carotid bruits Peripheral pulses: Peripheral pulses 2+ throughout GI Inspection: Yes normal to inspection, No abdominal wall ecchymosis and No visible herniation Palpation (GI): Soft to palpation, nontender, no guarding, not rigid and No hepatosplenomegaly present Auscultation: normoactive bowel sounds General: Yes no CVA tenderness Back/Spine/Pelvis Back: no CVA tenderness and No back tenderness Cervical Spine: cervical ROM normal Thoracic/Lumbar Spine: thoracic and lumbar spine normal to inspection, straight leg raise negative bilaterally, No thoraco-lumbar ROM limited and No lumbar spinal tenderness Skin Lesions: no lesions Rashes: no rashes Wounds: no wounds Neuro General: oriented to person, oriented to place, patient oriented x3, CN's II-XI intact bilaterally and No confusion Cranial nerves: Yes Equal, round and reactive pupils present and Yes Normal accommodation reflex present Cognition (Neuro): normal cognition Speech: No Abnormal speech present Gait exam (Neuro): Normal gait present Motor exam (neuro): 5/5 motor strength present throughout Extrem Right upper extremity: full ROM; no cyanosis Left upper extremity: full ROM; no cyanosis Right lower extremity: no edema Left lower extremity: no edema Psych Appearance: grossly normal Mental Status: mental status grossly normal Affect: normal affect Attitude: cooperative Thought process: Normal thought process present Assessment and Plan Assessment & Plan (1) Annual physical exam: Code(s): Z00.00 - Encounter for general adult medical examination without abnormal findings (2) Asthma: Code(s): J45.909 - Unspecified asthma, uncomplicated Qualifiers: Asthma severity: mild Asthma persistence: persistent Asthma complication type: uncomplicated Qualified Code(s): J45.30 - Mild persistent asthma, uncomplicated Plan: Patient reports her asthma has been well controlled per uses a maintenance inhaler daily. Denies any nighttime awakenings with asthma symptoms. (3) Essential (primary) hypertension: Code(s): I10 - Essential (primary) hypertension Plan: Blood pressure well controlled with current dose of lisinopril 20 mg. Advised to monitor blood pressure at home with goal blood pressure to be below 140/90 (4) Hypothyroid: Code(s): E03.9 - Hypothyroidism, unspecified Qualifiers: Hypothyroidism type: unspecified Qualified Code(s): E03.9 - Hypothyroidism, unspecified Plan: Patient's most TSH stable. Will continue current dose of levothyroxine. (5) Hypercholesterolemia: Code(s): E78.00 - Pure hypercholesterolemia, unspecified Plan: Patient continues on statin therapy without any side effect. Goal LDL is to be below 130. (6) FHx: colon cancer: Comment: sister, mother, colonoscopy 04/2020 Code(s): Z80.0 - Family history of malignant neoplasm of digestive organs Plan: Colonoscopy done in 2019 with a hyperplastic follow-up. Needs repeat 5 years due to family history (7) Hoarseness of voice: Code(s): R49.0 - Dysphonia Plan: Advised patient to follow-up with her ENT about her chronic coarseness of voice. May need larynx visualization. No smoking history. Orders: Orders Lipid Panel Today E78.00 - Pure hypercholesterolemia, unspecified TSH reflex Free T4 Today E03.9 - Hypothyroidism, unspecified Comprehensive [place]. Panel Fast Today I10 - Essential (primary) hypertension Complete Blood Count no Diff Today I10 - Essential (primary) hypertension Coding Level of Care Code Est Pt Prev Care 40-64y(56432) Diagnoses Annual physical exam Z00.00 Mild persistent asthma without complication J45.30 Asthma severity: mild Asthma persistence: persistent Asthma complication type: uncomplicated Essential (primary) hypertension I10 Hypothyroidism, unspecified type E03.9 Hypothyroidism type: unspecified Hypercholesterolemia E78.00 FHx: colon cancer Z80.0 Hoarseness of voice R49.0 Additional Codes SEPIDEH-7 Assessment Billing - SEPIDEH-7 Assessment Tool: SEPIDEH-7 Assessment 00102 ([id number])
== END 2023-08-28 13:48 | disposition home or self-care (01) ==
PROVIDERS: PCP Physician Assistant; Visit Provider Physician Assistant
DX: Z00.00 Encounter for general adult medical examination without abnormal findings (principal); J45.30 Mild persistent asthma, uncomplicated; I10 Essential (primary) hypertension; E03.9 Hypothyroidism, unspecified; E78.00 Pure hypercholesterolemia, unspecified; Z80.0 Family history of malignant neoplasm of digestive organs; R49.0 Dysphonia
CPT/HCPCS: 99396

== ENCOUNTER 2023-08-29 06:02 | Outpatient (REF) | payer OTHER, SELFPAY ==
[2023-08-29 07:43] LABS: Hemoglobin 12.3 g/dl (12.0-16.0); Mean Corpuscular HGB Conc 31.5 g/dl (31.0-35.0); Mean Corpuscular Hemoglobin 28.9 pg (27.0-33.0); Mean Corpuscular Volume 91.8 fL (80.0-98.0); Mean Platelet Volume 12.2 fL (9.4-12.3); Platelet Count 260 X10*3/uL (160-400); Red Blood Count 4.25 X10*6/uL (4.20-5.50); Red Cell Distribution Width 13.7 % (11.0-16.0); White Blood Count 6.7 X10*3/uL (4.8-10.8)
[2023-08-29 08:05] LABS: Alanine Aminotransferase 33 U/L (0-31); Albumin Level 4.1 g/dL (3.5-5.0); Alkaline Phosphatase 60 U/L (39-117); Anion Gap 13 (12-20); Aspartate Amino Transferase 32 U/L (5-31); Bilirubin Total 0.4 mg/dL (0.0-1.0); Blood Urea Nitrogen 19 mg/dL (9-16); Calcium 9.6 mg/dL (8.4-10.2); Carbon Dioxide 27 mmol/L (22-29); Chloride 108 mmol/L (96-108); Cholesterol 217 mg/dL (<200); Estimated Glomerular Filt Rate > 60; Glucose Fasting 94 mg/dL (60-99); HDL Cholesterol 80 mg/dL (>40); LDL Cholesterol Calculated 126 mg/dL (<100); Potassium 3.8 mmol/L (3.3-5.1); Sodium 144 mmol/L (135-145); Total Protein 7.2 g/dL (6.5-8.0); Triglycerides 58 mg/dL (<150)
[2023-08-29 08:23] LABS: TSH reflex Free T4 1.73 uIU/mL (0.32-4.0)
== END 2023-08-29 06:03 | disposition home or self-care (01) ==
LOC: HO.LAB 06:02
PROVIDERS: PCP Physician Assistant; Visit Provider Physician Assistant
DX: E78.00 Pure hypercholesterolemia, unspecified (principal); E03.9 Hypothyroidism, unspecified; I10 Essential (primary) hypertension
CPT/HCPCS: 36415; 80053; 80061; 84443; 85027

== ENCOUNTER 2023-10-28 10:44 | Outpatient (REF) | payer OTHER, SELFPAY ==
--- NOTE | ~2023-10-28 | XR_ITS ---
EXAMINATION: XR CHEST CLINICAL INFORMATION: Bronchitis, persistent cough after COVID-19 pneumonia COMPARISON: Chest x-ray on 08/03/2022 TECHNIQUE: 2 views of the chest were obtained. FINDINGS: vascularity. LUNGS: Lungs are clear. No pneumothorax is seen. BONES: Bony skeleton is intact. XR/XR chest 2V IMPRESSION: Unchanged Normal chest x-ray.
== END 2023-10-28 10:45 | disposition home or self-care (01) ==
LOC: HO.XRAY 10:44
PROVIDERS: PCP Physician Assistant; Visit Provider Physician Assistant
DX: J40 Bronchitis, not specified as acute or chronic (principal)
CPT/HCPCS: 71046

== ENCOUNTER 2023-12-04 11:03 | Outpatient (REF) | payer OTHER, SELFPAY ==
--- NOTE | ~2023-12-04 | MM_ITS ---
EXAMINATION: MM SCREENING DIGITAL BREAST TOMOSYNTHESIS, BILATERAL CLINICAL INFORMATION: Screening. Asymptomatic. COMPARISON: Mammography: This study is compared with prior exams dating back to 2019. TECHNIQUE: Digital breast tomosynthesis is performed in both the craniocaudal and mediolateral oblique views along with computer-aided detection (CAD). Synthesized 2D images are generated from the tomosynthesis. FINDINGS: There are scattered areas of fibroglandular density (ACR BI-RADS breast composition Category b). In the superior aspect of the left breast, there is an asymmetry which warrants additional mammographic and targeted sonographic imaging. In the right breast, there no are no significant masses, abnormal calcifications, or other abnormalities. MM/MM tomosynthesis screening BI IMPRESSION: Left breast asymmetry warrants additional mammographic and targeted sonographic imaging. No mammographic signs of malignancy right breast. ASSESSMENT: BI-RADS BI-RADS 0 - Incomplete: Needs additional Imaging. RECOMMENDATION: 1. Additional views of the left breast. 2. Targeted ultrasound if warranted after review of the additional views. 3. Radiology department staff will contact the patient for additional imaging. Additional Imaging required This examination should not preclude the clinical evaluation of a suspicious palpable abnormality. This patient's information was entered into a reminder system with a target due date for their next mammogram.
== END 2023-12-04 11:04 | disposition home or self-care (01) ==
LOC: HO.MAMMO 11:03
PROVIDERS: PCP Physician Assistant; Visit Provider Physician Assistant
DX: Z12.31 Encounter for screening mammogram for malignant neoplasm of breast (principal)
CPT/HCPCS: 77063; 77067

== ENCOUNTER → 2023-12-04 11:30 | Outpatient (BNV) | payer OTHER, SELFPAY | PROVIDERS: PCP Physician Assistant; Visit Provider Radiology Diagnostic Radiology | DX: Z12.31 Encounter for screening mammogram for malignant neoplasm of breast (principal) | CPT/HCPCS: 77063; 77067 ==

== ENCOUNTER 2024-01-03 14:03 | Outpatient (REF) | payer OTHER, SELFPAY ==
--- NOTE | ~2024-01-03 | MM_ITS ---
EXAMINATION: MM DIAGNOSTIC DIGITAL BREAST TOMOSYNTHESIS, LEFT CLINICAL INFORMATION: Evaluate left breast one view asymmetry 12:00 axis, mid depth, seen on left MLO view only with no CC correlate. COMPARISON: Mammography: Screening mammography 12/04/2023, 11/23/2022, 11/14/2021, 10/14/2020, and dating back to 2016. TECHNIQUE: Digital breast tomosynthesis is performed. 2D images are generated from the tomosynthesis. The following views are obtained: Full-field digital 3-D left mediolateral view, as well as a 3-D spot compression view in the left MLO projection. Computer-aided diagnosis was used for this study. FINDINGS: There are scattered areas of fibroglandular density (ACR BI-RADS breast composition Category b). Additional views show no significant mass, architectural abnormality, or abnormal calcifications. The region of mammographic concern in the left MLO view 12:00 axis mid depth is noted to have a similar appearance over multiple prior exams, with a near identical appearance on 08/30/2017. On spot compression view, finding dissipates and is consistent with superimposition artifact of normal overlapping breast tissue. No new suspicious findings in the left breast. MM/MM tomosynthesis added views L IMPRESSION: -No findings suspicious for malignancy in the left breast. -Area of concern in the 12:00 axis mid left breast is consistent with tissue superimposition artifact, and has an appearance essentially unchanged from 2017. Findings are benign. -Recommend returning to routine screening mammography to include both breasts. ASSESSMENT: BI-RADS BI-RADS 2 - Benign Findings RECOMMENDATION: 1 year F/U Results were provided to the patient at time of visit by the technologist. This patient's information was entered into a reminder system with a target due date for their next mammogram.
== END 2024-01-03 14:04 | disposition home or self-care (01) ==
LOC: HO.MAMMO 14:03
PROVIDERS: PCP Physician Assistant; Visit Provider Physician Assistant
DX: N64.89 Other specified disorders of breast (principal)
CPT/HCPCS: 77061; 77065

== ENCOUNTER → 2024-01-03 14:30 | Outpatient (BNV) | payer OTHER, SELFPAY | PROVIDERS: PCP Physician Assistant; Visit Provider Radiology Diagnostic Radiology | DX: R92.8 Other abnormal and inconclusive findings on diagnostic imaging of breast (principal) | CPT/HCPCS: 77061; 77065 ==

== ENCOUNTER 2024-01-29 07:29 | Outpatient (AMB) | payer OTHER, SELFPAY ==
--- NOTE | 2024-01-29 07:41 | A.OFFVIS_ITS ---
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 She is doing well with no concerns. Attempting to eat a healthy diet with calcium and vitamin D and stays active with exercise. She reports weight gain. Currently sexually active. Denies any vaginal dryness or irritation. STI testing offered; she accepts. Last pap smear; 2021. Last mammogram; 2023. Colonoscopy is due this year. Denies any family history of breast, ovarian or colon cancer. [facility] Medical History Elevated LFTs FHx: colon cancer GERD (gastroesophageal reflux disease) Hypertension History of mammogram Anxiety Hypothyroid Hypercholesterolemia Asthma Surgical History History of ankle surgery History of right knee surgery H/O colonoscopy Family History Mother Myocardial infarct, Onset Age: 74 Colon cancer CVD (cardiovascular disease) Sister Colon cancer Paternal Grandmother History of breast cancer Brother DMII (diabetes mellitus, type 2) Social History Housing: Apartment Alcohol intake: current Alcohol intake frequency: 3 or more drinks per day Alcohol type: beer Patient Tobacco Use Status: Never used Tobacco e-Cigarette/Vaping Use: Never Used Second Hand Smoke Exposure: No service: No Current occupational status: employed 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) Current occupational exposures/hazards: No Cognitive needs: No Hearing needs: No Vision needs: No Female Reproductive History Menstrual Menopause type: natural Total pregnancies: 0 Date of last pap smear: 06/19/22 (neg pap and hpv) Date of Mammogram: 01/03/24 (Birad 2) Review of Systems Const All systems reviewed & are unremarkable except as noted in HPI and below Reports as per HPI Eyes Reports no additional complaints ENT Reports no additional complaints Card Reports no additional complaints Resp Reports no additional complaints GI Reports as per HPI and Reports no additional complaints Reports as per HPI Musc Reports no additional complaints Skin/Breast Reports as per HPI Neuro Reports no additional complaints Psych Reports no additional complaints Endo Reports no additional complaints Enrico/Lymph Reports no additional complaints Aller/Immun Reports no additional complaints Physical Exam Vital Signs: Last Vital Signs BP 122/84 01/29/24 07:44 BMI result Body Mass Index 31.2 Const General: cooperative, healthy appearing, no acute distress, well developed and alert Orientation/consciousness: patient oriented x3 HEENT Head: Yes normal to inspection Eyes General: appearance normal, both eyes and all related structures Neck Neck: Yes normal visual inspection Thyroid: Thyroid normal Chest Chest palpation & inspection: normal inspection of the chest and other (no puckering, dimpling, peau de orange, retraction, discharge, masses) Breast/axilla inspection: normal inspection of the breasts Breast/axilla palpation: normal palpation of the breasts Resp Effort & Inspection: normal respiratory effort GI Inspection: Yes normal to inspection and Yes obesity Palpation (GI): Soft to palpation Rectal Exam - Female: deferred Other: Smallest [place] utilized for exam due to narrow introitus and atrophic changes External Female Exam: normal external appearance and normal appearance of the urethra Speculum Exam - Vagina: normal appearance of the vagina, normal palpation, normal vaginal discharge and vagina atrophic (Moderate) Speculum Exam - Cervix: normal appearance of the cervix and normal palpation Bimanual exam- vagina & uterus: normal bimanual exam, normal palpation, normal palpation, non-tender and other (anatomy difficult to outline due to body habitus,?enlarged uteri) Bimanual Exam- Adnexa, other: no masses Skin General skin exam: no rashes or lesions noted Rashes: no rashes Neuro General: patient oriented x3 Cognition (Neuro): normal cognition Extrem General: Yes normal to inspection Psych Attitude: cooperative Thought process: Normal thought process present Assessment & Plan Assessment & Plan (1) Encounter for well woman exam with routine gynecological exam: Code(s): Z01.419 - Encounter for gynecological examination (general) (routine) without abnormal findings Plan Discussed: Current recommendations for pap smears per ASCCP guidelines. Breast awareness, periodic self breast exams and yearly mammogram. Maintain a healthy lifestyle, well balanced diet including Calcium 1,200 mg and Vitamin D 600 IU daily, and routine exercise. Plan transabdominal ultrasound due to limited ability to examine-question enlarged uterus, reported bloating. Contact the office with any postmenopausal bleeding. Patient verbalizes understanding and agrees to the plan of care. She was given opportunity to ask questions and all questions were answered to the best of my ability. RTO in 1 year for annual hot room attendant exam. This note is constructed using voice recognition software. While every effort has been made to ensure accuracy, manager garage errors may have been included. Orders: Orders US pelvic complete Today R14.0 - Abdominal distension (gaseous) Coding Level of Care Code Est Pt Prev Care 40-64y(02181) Diagnoses Encounter for well woman exam with routine gynecological exam Z01.419
[2024-01-29 07:44] VITALS: BP 122/84; BMI 31.2
== END 2024-01-29 08:12 | disposition home or self-care (01) ==
LOC: HO.HWS 07:29
PROVIDERS: PCP Physician Assistant; Visit Provider Advanced Practice Midwife
DX: Z01.419 Encounter for gynecological examination (general) (routine) without abnormal findings (principal)
CPT/HCPCS: 99396

== ENCOUNTER → 2024-01-29 07:29 | Outpatient (BNVA) | payer OTHER, SELFPAY | PROVIDERS: PCP Physician Assistant; Visit Provider Advanced Practice Midwife ==

== ENCOUNTER 2024-02-14 10:29 | Outpatient (REF) | payer OTHER, SELFPAY ==
--- NOTE | ~2024-02-14 | US_ITS ---
EXAMINATION: US PELVIS CLINICAL INFORMATION: Abdominal distention Postmenopausal COMPARISON: Pelvic ultrasound 05/10/2010, CT scan abdomen and pelvis 02/02/2020 TECHNIQUE: Transabdominal scanning was performed. No transvaginal imaging was performed, per order. FINDINGS: Uterus: The uterus is anteverted and measures 6.6 x 1.4 x 2.6 cm. No focal fibroid. Endometrial thickness is 0.2 cm. Adnexa: Both ovaries are visualized. There is no ovarian torsion. There is no pelvic ascites or fluid collection. Right ovary measures 1.9 x 0.9 x 0.8 cm. Volume 0.7 mL. Left ovary measures 1.6 x 1.0 x 0.9 cm. Volume 0.8 mL. US/US pelvic complete IMPRESSION: Normal pelvic ultrasound.
== END 2024-02-14 10:30 | disposition home or self-care (01) ==
LOC: HO.US 10:29
PROVIDERS: PCP Physician Assistant; Visit Provider Advanced Practice Midwife
DX: R14.0 Abdominal distension (gaseous) (principal)
CPT/HCPCS: 76856

== ENCOUNTER 2024-02-27 09:36 | Outpatient (AMB) | payer OTHER, SELFPAY ==
--- NOTE | 2024-02-27 10:19 | MHC.PC.OV ---
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 Accompanied by: Self / Same As Patient Allergies coconut oil Allergy (Severe, Verified 02/27/24 10:30) Hives amoxicillin [Amoxicillin] Allergy (Unknown, Verified 02/27/24 10:30) UNKNOWN azithromycin Allergy (Unknown, Verified 02/27/24 10:30) rash penicillin V Allergy (Unknown, Verified 02/27/24 10:30) rash Medication List - Last Reconciled 02/27/24 by Krish Levy PA-C albuterol sulfate 90 mcg/actuation 1 inh inhalation QID PRN 30 days atorvastatin 20 mg PO DAILY cetirizine 10 mg PO DAILY fluticasone propion-salmeterol 250-50 mcg/dose (Wixela Inhub) 1 ea inhalation BID 30 days levothyroxine 25 mcg PO DAILY lisinopril 20 mg PO DAILY montelukast 10 mg PO BEDTIME Tobacco use date assessed: 02/27/24 Dental Screening Dental Screen Date: 02/27/24 Did you have a dental visit in the last 12 months?: Yes Did you have a dental problem in the last 6 months where you did not have access to dental care?: No Was dental information given to patient?: Patient has dentist HPI 6mth f/u HPI Details Patient is a 58-year-old female here today for a follow-up visit. Patient has a past medical history significant for moderate persistent asthma, hypothyroidism, hypertension, hyperlipidemia family history of colon cancer. .. Concern--> reports continues to have a lingering dry cough, attributes this to post COVID and allergy seasons.. Asthma: Has been fairly well controlled with current maintenance inhalers. Rarely has accessory shins and does not report any nighttime awakenings with asthma symptoms. Continues to follow ENT specialist and gets allergy and get allergy inj. .. Hypothyroidism: Most recent TSH has been stable. Continues on levothyroxine 25 mcg. .. Hyperlipidemia: Patient continues on low to moderate bone see statin without any side effect. Will continue to follow fasting lipid panel with goal LDL to remain below 130 .. Hypertension: Blood pressure acceptable today in office. Denies any chest discomfort, dizziness headaches or vision issues. Laboratory Tests 08/03/22 08/29/23 06:12 06:18 Creatinine 0.95 AST 32 H ALT 33 H Cholesterol 226 217 H LDL Cholesterol, C alc 126 H PFSH Medical History Abdominal bloating Elevated LFTs FHx: colon cancer GERD (gastroesophageal reflux disease) Hypertension History of mammogram Anxiety Hypothyroid Hypercholesterolemia Asthma Surgical History History of ankle surgery History of right knee surgery H/O colonoscopy Family History Mother Myocardial infarct, Onset Age: 74 Colon cancer CVD (cardiovascular disease) Sister Colon cancer Paternal Grandmother History of breast cancer Brother DMII (diabetes mellitus, type 2) Social History Housing: Apartment Alcohol intake: current Alcohol intake frequency: 3 or more drinks per day Alcohol type: beer Patient Tobacco Use Status: Never used Tobacco e-Cigarette/Vaping Use: Never Used Second Hand Smoke Exposure: No service: No Current occupational status: employed 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 1. Little interest or pleasure in doing things: not at all 2. Feeling down, depressed, or hopeless: not at all 3. Trouble falling or staying asleep, or sleeping too much: not at all 4. Feeling tired or having little energy: not at all 5. Poor appetite or overeating: not at all 6. Feeling bad about yourself - or that you are a failure or have let yourself or your family down: not at all 7. Trouble concentrating on things, such as reading the newspaper or watching television: not at all 8. Moving or speaking so slowly that other people could have noticed. Or the opposite - being so fidgety or restless that you have been moving around a lot more than usual: not at all 9. Thoughts that you would be better off or of hurting yourself in some way: not at all Total score: 0 Depression Screening Interpretation: Negative Depression Screening Done: Yes 39555 - PHQ-9 Billing: Yes Source: Developed by Drs. Chavez Hawk, Mary Ellen Mayes, Odell Crowe and colleagues, with an educational tamar from [employer]. Thrive Questionnaire Date Thrive assessed: 02/27/24 I am a: Patient What is your living situation today?: I have a steady place to live Within the past 12 months, did the food you bought not last and you didn't have the money to get more?: Never true Within the past 12 months, did you worry whether your food would run out before you got money to buy more?: Never true Do you have trouble paying for medicines?: No Do you have trouble getting transportation to medical appointments?: No Do you have trouble paying your heating and electricity bill?: No Do you have trouble taking care of your child, family member or friend?: No Do you have trouble with day-to-day activities such as bathing, preparing meals, shopping, managing finances, etc.?: No Are you currently unemployed and looking for a job?: No Are you interested in more education?: No Please select the resources that you would like help with: None Currently or been in a relationship where the following occur: no concerns reported THRIVE Score: 0 AUDIT C Alcohol Use Questionnaire (AUDIT-C) 1. How often do you have a drink containing alcohol?: 2-3 times a week 2. How many drinks containing alcohol do you have on a typical day when you are drinking?: 3 or 4 3. How often do you have six or more drinks on one occasion?: Never Total Score: 4 SEPIDEH-7 AMB Questionnaire SEPIDEH-7 Date SEPIDEH - 7 assessed: 02/27/24 Feeling nervous, anxious, or on edge: 0 = Not at all Not being able to stop or control worryin = Not at all Worrying too much about different things: 0 = Not at all Trouble relaxin = Not at all Being so restless that it is hard to sit still: 0 = Not at all Becoming easily annoyed or irritable: 0 = Not at all Feeling afraid as if something awful might happen: 0 = Not at all Total SEPIDEH-7 score (0-4 normal; 5-9 mild; 10-14 moderate; 15-21 severe): 0 Source: Developed by Drs. Chavez Hawk, Mary Ellen Mayes, Odell Crowe and colleagues, with an educational tamar from [employer]. SEPIDEH-7 Assessment Billing SEPIDEH-7 Assessment Tool: SEPIDEH-7 Assessment 41084 ACT Questionnaire In the past 4 weeks, how much of the time did your asthma keep you from getting as much done at work, school or at home?: None of the time During the past 4 weeks, how often have you had shortness of breath?: 1-2 times a week During the past 4 weeks, how often did your asthma symptoms wake you up at night or earlier than usual in the morning?: Not at all During the past 4 weeks, how often have you had to use your rescue inhaler or nebulizer medication?: Once a week or less How would you rate your asthma control during the past 4 weeks?: Well controlled ACT Interpretation: Negative Score: 22 Review of Systems Const Denies headache(s) Eyes Denies loss of vision ENT Denies vertigo, Denies dizziness, Denies headache(s) and Denies sore throat Card Denies chest pain, Denies leg edema and Denies lightheadedness Resp Denies cough, Denies hemoptysis and Denies wheezing GI Denies abdominal pain, Denies melena, Denies constipation, Denies diarrhea and Denies vomiting Denies urinary frequency, Denies dysuria and Denies urinary urgency Musc Denies arthralgias, Denies joint swelling, Denies numbness and Denies tingling Neuro Denies Abnormal speech present, Denies behavioral changes, Denies vertigo, Denies dizziness, Denies headache(s), Denies loss of vision, Denies memory loss, Denies numbness and Denies tingling Psych Denies anxiety, Denies behavioral changes, Denies depression, Denies memory loss and Denies panic attacks [place]/Lymph Denies easy bleeding and Denies easy bruising Aller/Immun Denies wheezing Physical exam (Primary Care) Vital Signs: Last Vital Signs Pulse 78 02/27/24 10:20 BP 108/86 02/27/24 10:20 Pulse Ox 98 02/27/24 10:20 Oxygen Delivery Method Room Air 02/27/24 10:20 BMI result Body Mass Index 31.4 Tobacco/Smoking Status: Tobacco use Status Tobacco use date assessed 02/27/24 02/27/24 10:23 Patient Tobacco Use Status Never used Tobacco 02/27/24 10:19 e-Cigarette/Vaping Use Never Used 02/27/24 10:19 PHQ-9: PHQ-9 Score PHQ-9: Total score 0 02/27/24 10:23 Depression Screening Interpretation: Negative Thrive Assessment: Date of Thrive Assessment Date Thrive assessed 02/27/24 02/27/24 10:23 Currently or been in a relationship where the following occur: no concerns reported Const General: healthy appearing, no acute distress, alert and awake Nutritional Appearance: well nourished Orientation/consciousness: oriented to person, oriented to place and oriented to time HENMT Ears: TM's normal bilaterally General nose exam: Normal nasal mucous membranes and turbinates present Eyes Conjunctivae: conjunctivae normal Sclerae: sclerae normal Pupils: Equal, round and reactive pupils present Neck Neck: Yes no lymphadenopathy and Yes no JVD Thyroid: Thyroid normal Carotids: no bruits Resp Effort & Inspection: normal respiratory effort and not tachypneic Auscultation: no crackles, no rales, no rhonchi and no wheezes Cardio Rate: regular rate Rhythm: regular rhythm Heart sounds: no murmurs and normal S1 and S2 GI Palpation (GI): Soft to palpation, nontender, no hepatomegaly and no splenomegaly Auscultation: normal bowel sounds Skin General skin exam: no rashes or lesions noted and dry skin Neuro General: oriented to person, oriented to place and oriented to time Cranial nerves: Yes Equal, round and reactive pupils present Speech: No Abnormal speech present Gait exam (Neuro): Normal gait present Motor exam (neuro): no tremor noted Extrem Right upper extremity: full ROM Left upper extremity: full ROM Right lower extremity: full ROM; no edema Left lower extremity: full ROM; no edema Psych Mental Status: mental status grossly normal Speech and movement: Normal speech and movement present Affect: normal affect Attitude: cooperative Thought process: Normal thought process present Assessment and Plan Assessment & Plan (1) Essential (primary) hypertension: Code(s): I10 - Essential (primary) hypertension Plan: Blood pressure well controlled with current dose of lisinopril 20 mg. Advised to monitor blood pressure at home with goal blood pressure to be below 140/90. Again continues to a lingering dry cough. Wondering if having Baltazar related cough. Will transition to ARB. (2) Asthma: Code(s): J45.909 - Unspecified asthma, uncomplicated Qualifiers: Asthma severity: mild Asthma persistence: persistent Asthma complication type: uncomplicated Qualified Code(s): J45.30 - Mild persistent asthma, uncomplicated Plan: Patient reports her asthma has been well controlled per uses a maintenance inhaler daily. She does admit to a lingering dry cough. Wondering if she has Baltazar related cough. Will transition to ARB. Denies any nighttime awakenings with asthma symptoms. (3) Hypothyroid: Code(s): E03.9 - Hypothyroidism, unspecified Qualifiers: Hypothyroidism type: unspecified Qualified Code(s): E03.9 - Hypothyroidism, unspecified Plan: Patient's most TSH stable. Will continue current dose of levothyroxine. (4) Hypercholesterolemia: Code(s): E78.00 - Pure hypercholesterolemia, unspecified Plan: Patient continues on statin therapy without any side effect. Goal LDL is to be below 130. Orders: Orders TSH reflex Free T4 Today E03.9 - Hypothyroidism, unspecified Lipid Panel Today E78.00 - Pure hypercholesterolemia, unspecified Complete Blood Count no Diff Today E78.00 - Pure hypercholesterolemia, unspecified Microalbumin, Random (w Creat) 6 Months I10 - Essential (primary) hypertension TSH reflex Free T4 6 Months E03.9 - Hypothyroidism, unspecified Lipid Panel 6 Months E78.00 - Pure hypercholesterolemia, unspecified Comprehensive [place]. Panel Fast Today E78.00 - Pure hypercholesterolemia, unspecified Comprehensive [place]. Panel Fast 6 Months E78.00 - Pure hypercholesterolemia, unspecified Complete Blood Count no Diff 6 Months E78.00 - Pure hypercholesterolemia, unspecified Medications: New losartan 50 mg PO DAILY 90 days 90 tabs 1RF I10 - Essential (primary) hypertension Discontinued lisinopril Discontinued Reason: Doctor's Order 20 mg PO DAILY 90 tabs 3RF Patient Instructions: Goal: Blood pressure to remain below 140/90 Barrier: Adherence to physical activity and healthy eating habits Coding Level of Care Code Est Pt Level 4 (99642) Complex EM visit Add On G2211 Diagnoses Essential (primary) hypertension I10 Mild persistent asthma without complication J45.30 Asthma severity: mild Asthma persistence: persistent Asthma complication type: uncomplicated Hypothyroidism, unspecified type E03.9 Hypothyroidism type: unspecified Hypercholesterolemia E78.00 Additional Codes SEPIDEH-7 Assessment Billing - SEPIDEH-7 Assessment Tool: SEPIDEH-7 Assessment 59829 ([id number])
[2024-02-27 10:20] VITALS: BP 108/86; PULSE 78; O2SAT 98; BMI 31.4
== END 2024-02-27 10:40 | disposition home or self-care (01) ==
PROVIDERS: PCP Physician Assistant; Visit Provider Physician Assistant
DX: I10 Essential (primary) hypertension (principal); J45.30 Mild persistent asthma, uncomplicated; E03.9 Hypothyroidism, unspecified; E78.00 Pure hypercholesterolemia, unspecified
CPT/HCPCS: 99214; G2211

== ENCOUNTER 2024-03-04 06:02 | Outpatient (REF) | payer OTHER, SELFPAY ==
[2024-03-04 07:45] LABS: Hematocrit 37.5 % (37.0-47.0); Mean Corpuscular Hemoglobin 28.7 pg (27.0-33.0); Mean Corpuscular Volume 89.7 fL (80.0-98.0); Mean Platelet Volume 12.9 fL (9.4-12.3); Platelet Count 231 X10*3/uL (160-400); Red Blood Count 4.18 X10*6/uL (4.20-5.50); Red Cell Distribution Width 13.8 % (11.0-16.0); White Blood Count 6.5 X10*3/uL (4.8-10.8)
[2024-03-04 08:30] LABS: Alanine Aminotransferase 31 U/L (0-31); Alkaline Phosphatase 65 U/L (39-117); Anion Gap 13 (12-20); Aspartate Amino Transferase 28 U/L (5-31); Bilirubin Total 0.4 mg/dL (0.0-1.0); Blood Urea Nitrogen 24 mg/dL (9-16); Calcium 9.5 mg/dL (8.4-10.2); Carbon Dioxide 25 mmol/L (22-29); Chloride 109 mmol/L (96-108); Cholesterol 190 mg/dL (<200); Estimated Glomerular Filt Rate > 60; Glucose Fasting 91 mg/dL (60-99); HDL Cholesterol 77 mg/dL (>40); LDL Cholesterol Calculated 103 mg/dL (<100); Potassium 3.8 mmol/L (3.3-5.1); Sodium 143 mmol/L (135-145); Triglycerides 54 mg/dL (<150)
[2024-03-04 08:50] LABS: TSH reflex Free T4 1.46 uIU/mL (0.32-4.0)
== END 2024-03-04 06:03 | disposition home or self-care (01) ==
LOC: HO.LAB 06:02
PROVIDERS: PCP Physician Assistant; Visit Provider Physician Assistant
DX: E78.00 Pure hypercholesterolemia, unspecified (principal); E03.9 Hypothyroidism, unspecified
CPT/HCPCS: 36415; 80053; 80061; 84443; 85027

== ENCOUNTER 2024-07-21 06:12 | Outpatient (REF) | payer BC, SELFPAY ==
[2024-07-21 07:40] LABS: Hematocrit 36.7 % (37.0-47.0); Hemoglobin 11.5 g/dl (12.0-16.0); Mean Corpuscular HGB Conc 31.3 g/dl (31.0-35.0); Mean Corpuscular Hemoglobin 26.8 pg (27.0-33.0); Mean Corpuscular Volume 85.5 fL (80.0-98.0); Mean Platelet Volume 12.4 fL (9.4-12.3); Platelet Count 289 X10*3/uL (160-400); Red Blood Count 4.29 X10*6/uL (4.20-5.50); Red Cell Distribution Width 12.3 % (11.0-16.0); White Blood Count 7.3 X10*3/uL (4.8-10.8)
[2024-07-21 08:16] LABS: Creatinine Urine 201.24 mg/dL; Microalbum/Creatinine Ratio Ur 15.9 ug/mg cr (<30)
[2024-07-21 08:29] LABS: Alanine Aminotransferase 66 U/L (0-31); Albumin Level 3.7 g/dL (3.5-5.0); Alkaline Phosphatase 67 U/L (39-117); Anion Gap 14 (12-20); Aspartate Amino Transferase 45 U/L (5-31); Bilirubin Total 0.4 mg/dL (0.0-1.0); Blood Urea Nitrogen 21 mg/dL (9-16); Calcium 10.2 mg/dL (8.4-10.2); Carbon Dioxide 24 mmol/L (22-29); Chloride 111 mmol/L (96-108); Cholesterol 146 mg/dL (<200); Estimated Glomerular Filt Rate > 60; Glucose Fasting 105 mg/dL (60-99); HDL Cholesterol 39 mg/dL (>40); LDL Cholesterol Calculated 85 mg/dL (<100); Potassium 4.4 mmol/L (3.3-5.1); Sodium 145 mmol/L (135-145); Total Protein 6.8 g/dL (6.5-8.0); Triglycerides 113 mg/dL (<150)
[2024-07-21 08:42] LABS: TSH reflex Free T4 < 0.01 uIU/mL (0.32-4.0)
[2024-07-21 13:32] LABS: Free T4 (Free Thyroxine) 2.86 ng/dL (0.71-1.85)
== END 2024-07-21 06:13 | disposition home or self-care (01) ==
LOC: HO.LAB 06:12
PROVIDERS: PCP Physician Assistant; Visit Provider Physician Assistant
DX: E78.00 Pure hypercholesterolemia, unspecified (principal); E03.9 Hypothyroidism, unspecified; I10 Essential (primary) hypertension
CPT/HCPCS: 36415; 80053; 80061; 82043; 82570; 84439; 84443; 85027

== ENCOUNTER → 2024-07-28 11:16 | Outpatient (REF) | payer BC, SELFPAY ==
--- NOTE | 2024-07-28 11:24 | ECG_ITS ---
Test Reason : THYROIDTOXICOSIS Blood Pressure : / mmHG Vent. Rate : 102 BPM Atrial Rate : 102 BPM P-R Int : 134 ms QRS Dur : 076 ms QT Int : 318 ms P-R-T Axes : 057 021 035 degrees QTc Int : 414 ms Sinus tachycardia Otherwise normal ECG When compared with ECG of 28-JUL-2014 12:31, No significant change was found Referred By: Krish Levy Electronically Signed By:STU CASPER MD
== END ==
LOC: HO.CARD 11:16
PROVIDERS: PCP Physician Assistant; Visit Provider Physician Assistant
DX: E05.90 Thyrotoxicosis, unspecified without thyrotoxic crisis or storm (principal)
CPT/HCPCS: 93005

== ENCOUNTER → 2024-07-28 11:24 | Outpatient (BNV) | payer BC, SELFPAY | PROVIDERS: PCP Physician Assistant; Visit Provider Internal Medicine Cardiovascular Disease | DX: R00.0 Tachycardia, unspecified (principal) | CPT/HCPCS: 93010 ==

== ENCOUNTER 2024-08-04 07:51 | Outpatient (AMB) | payer BC, SELFPAY ==
--- NOTE | 2024-08-04 07:52 | A.OFFVIS_ITS ---
Vital Signs 08/04/24 07:53 Height 5 ft 4 in Weight 172 lb 2.896 oz BMI 29.6 BP 136/70 Blood Pressure Location Lt brachial Position Sitting Pulse 113 H Pulse Source Pulse Oximeter Intake Visit Reasons: Thyrotoxicosism-conf Intake Note: New patient present today for Thyrotoxicosis office visit. 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 Accompanied by: Self / Same As Patient Allergies coconut oil Allergy (Severe, Verified 08/04/24 07:56) Hives amoxicillin [Amoxicillin] Allergy (Unknown, Verified 08/04/24 07:56) UNKNOWN azithromycin Allergy (Unknown, Verified 08/04/24 07:56) rash penicillin V Allergy (Unknown, Verified 08/04/24 07:56) rash Medication List - Last Reconciled 08/04/24 by Raegan Sloan MD albuterol sulfate 90 mcg/actuation 1 inh inhalation QID PRN 30 days atorvastatin 20 mg PO DAILY fluticasone propion-salmeterol 250-50 mcg/dose (Wixela Inhub) 1 ea inhalation BID 30 days losartan 50 mg PO DAILY 90 days montelukast 10 mg PO BEDTIME HPI Comments Details: 58-year-old female coming in today for initial evaluation of iatrogenic hyperthyrotoxicosis. Was diagnosed with hypothyroidism since 20 years and been on levothyroxine 25 mcg daily since that time. Since summer 2023 , complaining of excessive fatigue. Intermittent palpitations. No tremors. No loose stools or constipations. No hair or skin changes. No mood changes. Weight down by 10 lbs since summer 2023. Reduced appetite. Post menopausal since age 49. Denies diaphoresis except at night time. Reports eyes are dry , intermittent bluriness. Voice is hoarse, diagnosed with vocal cord polyp treated medically recently. No other compressive sx. Patient denies any difficulty swallowing, pain on swallowing. No preceding contrast exposure. Reports she often has sinusitis. No other viral illness recently. Blood work 07/21 showed TSH suppressed at<0.01 and free T4 high at 2.86. Levothyroxine was subsequently stopped, and she was given a prescription of methimazole 5 mg daily which she took for 5 days before she is starting having excessive acid reflux since stopped it on 07/28/2024. Patient denies any history of childhood neck radiation. Denies having ever used lithium, amiodarone or biotin supplements. Patient denies any family history of thyroid cancer. Sister had thyroid disease and some adrenal disorder. Alcohol no drink in 5 weeks , otherwise was drinking 2 drinks per day Denies drug use. Review of systems Constitutional: no fevers, chills HEENT: no changes in vision Cardiac: No chest pain Pulmonary: No SOB GI:No abdominal pain, no nausea or vomiting, no anorexia, no blood in stool : no burning micturition, dysuria or increase in urinary frequency Physical exam General: sitting comfortably in no acute distress HEENT: normocephalic/atraumatic, EOM intact, moist oral mucosa Neck: supple, symmetrical, no thyromegaly , no dorsocervical or supraclavicular fat pads Cardiac: normal heart sounds Pulm: normal breath sounds B/L, no added breath sounds Abd: not distended, no tenderness Extremities: no edema, no signs of myxedema, does have tremors Neuro: AAO x3, Speech: normal, no facial droop, moving all 4 extremities Laboratory Tests 10/21/18 12/29/20 12/27/21 06:19 06:10 06:09 Free T4 1.19 TSH 1.87 2.42 08/29/23 03/04/24 07/21/24 06:18 06:09 06:30 Free T4 2.86 H TSH 1.73 1.46 < 0.01 L PFSH Medical History Abdominal bloating Elevated LFTs FHx: colon cancer GERD (gastroesophageal reflux disease) Hypertension History of mammogram Anxiety Hypothyroid Hypercholesterolemia Asthma Surgical History History of ankle surgery History of right knee surgery H/O colonoscopy Family History Mother Myocardial infarct, Onset Age: 74 Colon cancer CVD (cardiovascular disease) Sister Colon cancer Paternal Grandmother History of breast cancer Brother DMII (diabetes mellitus, type 2) Social History Housing: Apartment Alcohol intake: current Alcohol intake frequency: 3 or more drinks per day Alcohol type: beer Patient Tobacco Use Status: Never used Tobacco e-Cigarette/Vaping Use: Never Used Second Hand Smoke Exposure: No service: No Current occupational status: employed 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) Current occupational exposures/hazards: No Cognitive needs: No Hearing needs: No Vision needs: No Physical Exam Vital Signs: Last Vital Signs Pulse 113 H 08/04/24 07:53 BP 136/70 08/04/24 07:53 BMI result Body Mass Index 29.6 Assessment & Plan Assessment & Plan (1) Hyperthyroidism: Code(s): E05.90 - Thyrotoxicosis, unspecified without thyrotoxic crisis or storm Category: Medical Plan: 58-year-old female with past medical history significant for hypertension, hyperlipidemia, acid reflux, asthma with a history significant for hypothyroidism who has been on levothyroxine 25 mcg daily for the past 20 years, who most recently had blood work on 07/21/2024 which showed suppressed TSH with elevated free T4 of 2.86. Subsequently her levothyroxine was stopped and her primary care provider prescribed her methimazole 5 mg daily which she took for 5 days up until 07/28/2024 however was experiencing significant heartburn and stopped it. She is tachycardic on exam today as well as tremors. Her symptoms are consistent with hyperthyroidism. I explained to the patient that given she was on levothyroxine for a long period of time for diagnosis of hypothyroidism with now labs showing hyperthyroidism, the most obvious reason is iatrogenic hyperthyroidism. She was on a low dose of levothyroxine anyway, and most likely she does not needed. I will repeat her labs today and check her antibodies as well to evaluate her also her other possibilities such as Graves disease and I will check a trab and TSI antibody. I explained to her that it takes 6 weeks for thyroid hormone to completely reset after medication changes so we will plan to repeat another set of blood work in 6 weeks from 07/28/2024 which would be around 09/08/2024. Plan: -stop both levothyroxine and methimazole -do blood work today with TSH, free T4, total T3, TPO, TSI and trap antibodies -repeat TSH, free T4 and total T3 in 6 weeks around 09/08/2024 -follow up after blood work to discuss results Plan I spent 40 minutes in reviewing the record, seeing the patient and documenting in the medical record. Orders: Orders Thyroid Peroxidase Antibodies Today E0 - Thyrotoxicosis, unspecified without thyrotoxic crisis or storm Triiodothyronine T3 Total Today E0 - Thyrotoxicosis, unspecified without thyrotoxic crisis or storm Thyroglobulin Antibodies Today E0 - Thyrotoxicosis, unspecified without thyrotoxic crisis or storm Thyroid Stimulating Hormone Today E0 - Thyrotoxicosis, unspecified without thyrotoxic crisis or storm Free T4 (Free Thyroxine) Today E0 - Thyrotoxicosis, unspecified without thyrotoxic crisis or storm Thyroid Stimulating Immunoglob Today E0 - Thyrotoxicosis, unspecified without thyrotoxic crisis or storm Thyrotropin Receptor Antibody Today E0 - Thyrotoxicosis, unspecified without thyrotoxic crisis or storm Patient Instructions: Stop both Levothyroxine and methimazole Do blood work today and then again week of Aug Follow up with me on Sep 11 Coding Level of Care Code New Pt Level 4 (77495) Diagnoses Hyperthyroidism E0 Time Spent (min) 40
[2024-08-04 07:53] VITALS: BP 136/70; PULSE 113; BMI 29.6
== END 2024-08-04 08:30 | disposition home or self-care (01) ==
PROVIDERS: PCP Physician Assistant; Visit Provider Student in an Organized Health Care Education/Training Program
DX: E05.90 Thyrotoxicosis, unspecified without thyrotoxic crisis or storm (principal)
CPT/HCPCS: 99204

== ENCOUNTER 2024-08-04 08:32 | Outpatient (REF) | payer BC, SELFPAY ==
[2024-08-04 11:48] LABS: Free T4 (Free Thyroxine) 2.64 ng/dL (0.71-1.85); Thyroid Stimulating Hormone < 0.01 uIU/mL (0.32-4.0)
[2024-08-06 00:18] LABS: Triiodothyronine T3 Total 348 ng/dL (76-181)
[2024-08-06 02:34] LABS: Thyroglobulin Antibodies <1 IU/mL (< or = 1); Thyroid Peroxidase Antibodies 136 IU/mL (<9)
[2024-08-08 20:48] LABS: Thyrotropin Receptor Antibody 6.28 IU/L (<=2.00)
[2024-08-10 15:58] LABS: Thyroid Stimulating Immunoglob 179 % baseline (<140)
== END 2024-08-04 08:33 | disposition home or self-care (01) ==
LOC: HO.10HDL 08:32
PROVIDERS: Visit Provider Student in an Organized Health Care Education/Training Program
DX: E05.90 Thyrotoxicosis, unspecified without thyrotoxic crisis or storm (principal)
CPT/HCPCS: 36415; 83520; 84439; 84443; 84445; 84480; 86376; 86800

== ENCOUNTER 2024-08-26 06:08 | Outpatient (REF) | payer BC, SELFPAY ==
[2024-08-26 08:04] LABS: Free T4 (Free Thyroxine) 2.91 ng/dL (0.71-1.85)
[2024-08-26 08:07] LABS: TSH reflex Free T4 < 0.01 uIU/mL (0.32-4.0)
[2024-08-27 16:53] LABS: Triiodothyronine T3 Total 293 ng/dL (76-181)
--- OUTSIDE RECORDS SUMMARY | 2024-09-01 16:10 | XMS_ITS | Patient Health Record ---
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 Name Role Phone Krish Levy Primary Care Provider Fredy John Jr Unavailable [phone] ALLERGIES Allergen (clinical drug ingredient) Drug/Non Drug Allergy documented on EMR Reaction Allergy Type Onset Date Status coconut oil Coconut Oil Unknown Drug Allergy Act merry amoxicillin Amoxicillin (uncoded) Unknown Allergy Active REASON FOR REFERRAL No Information MEDICATIONS Medication SIG (Take, Route, Frequency, Duration) Notes Start Date End Date Status Atorvastatin Calcium 20 MG 1 tablet Oral ly Once a day Active Aspir-81 Active Montelukast Sodium 10 MG 1 tablet Orally Once a day Active Albuterol Sulfate 108 (90 Base) MCG/ACT 1 puff as needed Inhalation every 4 hrs Active Levothyroxine Sodium 25 MCG 1 tablet Orally Once a day Active Lisinopril 20 MG 1 tablet Orally Once a day Active Vitamin D 1000 UNIT 1 tablet Orally Once a day Active Omeprazole 20 MG TAKE 1 CAPSULE BY MOUTH EVERY DAY 30 MINUTES BEFORE MORNING MEAL FOR 30 DAYS for 30 Active Advair Diskus as needed Active MiraLax (colon prep) 8.3 ounce ((238) grams mixed with Gatorade or Crystal Light orally begin at 5:00 p.m. the day before the procedure for 1 day 03/11/2020 Active Wixela Inhub 250-50 MCG/ACT 1 puff Inhalation Twice a day Active IMMUNIZATIONS Vaccine Route Administration Date Status Comme nts Influenza Unknown 06/23/2019 Administered Influenza Unknown 07/10/2022 Administered SOCIAL HISTORY Sex Assigned At : Social History Observation Description Sex Assigned At Unknown PROBLEMS Problem Type ICD Code Onset Dates Problem Status W/U Status Risk SNOMED Code Notes Problem Colon cancer screening (Z12.11) Active confirmed 141391718 Problem Gastroesophageal reflux disease without esophagitis (K21.9) Active confirmed 092472000 Problem Abdominal discomfort (R10.9) Active confirmed 89782742 Problem Gas bloat syndrome (K92.89) Active confirmed 057577230 PLAN OF TREATMENT Pending Test Test Name Order Date LIVER PROFILE 12/05/2022 LIPASE 12/05/2022 CBC w/o DIFF 12/05/2022 US ABD 12/05/2022 Future Test Test Name Order Date COLONOSCOPY 12/01/2014 UPPER GI ENDOSCOPY 03/11/2020 COLONOSCOPY 03/11/2020 Insurance Providers Payer Name Payer Address Payer Phone Subscriber Number Group Number Insured Name Patient Relationship to Insured Coverage Start Date Coverage End Date [facility] [address] [place] [phone] [id number] DRISS NGUYEN Self - patient is the insured MEDICAL (GENERAL) HISTORY Medical History History ICD Code colonoscopy 08/02/20, hyperp lastic polyp, five-year followup due to family history of colon cancer and personal history of tubular adenomas. Hemorrhoids Diarrhea Hyperthyroidism Menorrhagia Elevated cholesterol Environmental allergies kidney stones 2019 Hypertension Gastroesophageal reflux dise ase, EGD 08/02/20, small hiatal hernia, and no H. pylori or Ponce's esophagus. Surgical History Surgery Date(Month/Year) knee surgery X3 ankle surgery left 2018
== END 2024-08-26 06:09 | disposition home or self-care (01) ==
LOC: HO.LAB 06:08
PROVIDERS: PCP Physician Assistant; Visit Provider Student in an Organized Health Care Education/Training Program
DX: E05.90 Thyrotoxicosis, unspecified without thyrotoxic crisis or storm (principal); E03.9 Hypothyroidism, unspecified
CPT/HCPCS: 36415; 84439; 84443; 84480

== ENCOUNTER 2024-08-31 11:19 | Outpatient (AMB) | payer BC, SELFPAY ==
--- NOTE | 2024-08-31 11:40 | MHC.PC.OV ---
Vital Signs 08/31/24 11:45 Height 5 ft 4 in Weight 174 lb 6 oz BMI 29.9 BP 126/62 Blood Pressure Location Lt brachial Position Sitting Pulse 93 Pulse Source Pulse Oximeter Pulse Oximetry (%) 98 Oxygen Delivery Method Room Air Intake Visit Reasons: Annual Exam Intake Note: Patient is here today for a physical. Bell Clerk Required: No Accompanied by: Self / Same As Patient Allergies coconut oil Allergy (Severe, Verified 08/31/24 11:52) Hives amoxicillin [Amoxicillin] Allergy (Unknown, Verified 08/31/24 11:52) UNKNOWN azithromycin Allergy (Unknown, Verified 08/31/24 11:52) rash penicillin V Allergy (Unknown, Verified 08/31/24 11:52) rash lisinopril Adverse Reaction (Intermediate, Verified 08/31/24 12:15) Cough Medication List - Last Reconciled 08/31/24 by Krish Levy PA-C albuterol sulfate 90 mcg/actuation 1 inh inhalation QID PRN 30 days atorvastatin 20 mg PO DAILY fluticasone propion-salmeterol 250-50 mcg/dose (Wixela Inhub) 1 ea inhalation BID 30 days losartan 50 mg PO DAILY 90 days methimazole 10 mg PO DAILY montelukast 10 mg PO BEDTIME Tobacco use date assessed: 02/27/24 Dental Screening Dental Screen Date: 02/27/24 HPI Annual Exam HPI Details Patient is a 59-year-old female here today for routine annual physical. Patient has a past medical history significant for moderate persistent asthma, hyperthyroidism, hypertension, hyperlipidemia family history of colon cancer. .. Asthma: Has been fairly well controlled with current maintenance inhalers. Rarely has accessory shins and does not report any nighttime awakenings with asthma symptoms. Continues to follow ENT specialist and gets allergy and get allergy inj. .. Hyperthyroidism: Have noticed very low TSH and elevated T3. She does report feeling somewhat shaky, presyncopal episodes and having heart palpitations. She was started on methimazole and refer to endocrinology. She is now on methimazole 10 mg and feels her hyperthyroid symptoms have resolved. .. Hyperlipidemia: Patient continues on low to moderate bone see statin without any side effect. Will continue to follow fasting lipid panel with goal LDL to remain below 130 .. Hypertension: Blood pressure acceptable today in office. Has been transitioned to losartan from lisinopril due to an Baltazar related cough. Denies any chest discomfort, dizziness headaches or vision issues. Mammogram: Done in November 2023, BI-RADS 1 Colorectal cancer screening: Colonoscopy [place] [address] Cordero, hyperplastic polyp found, repeat 5 years due to family history . 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 Vaccines: Up-to-date with Tdap, up-to-date with COVID-19 vaccine., up-to-date with shingles vaccine , up-to-date with pneumonia vaccine Laboratory Tests 07/21/24 08/04/24 08/26/24 06:30 08:38 06:21 Hgb 11.5 L TSH < 0.01 L < 0.01 L < 0.01 L Free T4 2.64 H 2.91 H Total T3 348 H 293 H PFSH Medical History (Updated 08/31/24 @ 12:13 by Krish Levy PA-C) Elevated LFTs FHx: colon cancer GERD (gastroesophageal reflux disease) Hypertension History of mammogram Anxiety Hypothyroid Hypercholesterolemia Asthma Surgical History History of ankle surgery History of right knee surgery H/O colonoscopy Family History Mother Myocardial infarct, Onset Age: 74 Colon cancer CVD (cardiovascular disease) Sister Colon cancer Paternal Grandmother History of breast cancer Brother DMII (diabetes mellitus, type 2) Social History (Updated 08/31/24 @ 11:57 by Krish Levy PA-C) Housing: Apartment Alcohol intake: current Alcohol type: beer Patient Tobacco Use Status: Never used Tobacco e-Cigarette/Vaping Use: Never Used Second Hand Smoke Exposure: No service: No Current occupational status: employed 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 1. Little interest or pleasure in doing things: not at all 2. Feeling down, depressed, or hopeless: not at all 3. Trouble falling or staying asleep, or sleeping too much: not at all 4. Feeling tired or having little energy: not at all 5. Poor appetite or overeating: not at all 6. Feeling bad about yourself - or that you are a failure or have let yourself or your family down: not at all 7. Trouble concentrating on things, such as reading the newspaper or watching television: not at all 8. Moving or speaking so slowly that other people could have noticed. Or the opposite - being so fidgety or restless that you have been moving around a lot more than usual: not at all 9. Thoughts that you would be better off or of hurting yourself in some way: not at all Total score: 0 Depression Screening Interpretation: Negative Depression Screening Done: Yes 14528 - PHQ-9 Billing: Yes Source: Developed by Drs. Chavez Hawk, Mary Ellen Mayes, Odell Crowe and colleagues, with an educational tamar from [employer]. Thrive Questionnaire Date Thrive assessed: 08/31/24 I am a: Patient What is your living situation today?: I choose not to answer this question Within the past 12 months, did the food you bought not last and you didn't have the money to get more?: I choose not to answer this question Within the past 12 months, did you worry whether your food would run out before you got money to buy more?: I choose not to answer this question Do you have trouble paying for medicines?: I choose not to answer this question Do you have trouble getting transportation to medical appointments?: I choose not to answer this question Do you have trouble paying your heating and electricity bill?: I choose not to answer this question Do you have trouble taking care of your child, family member or friend?: I choose not to answer this question Do you have trouble with day-to-day activities such as bathing, preparing meals, shopping, managing finances, etc.?: I choose not to answer this question Are you currently unemployed and looking for a job?: I choose not to answer this question Are you interested in more education?: I choose not to answer this question Please select the resources that you would like help with: None Currently or been in a relationship where the following occur: I choose not to answer THRIVE Score: 0 AUDIT C Alcohol Use Questionnaire (AUDIT-C) 1. How often do you have a drink containing alcohol?: Monthly or less 2. How many drinks containing alcohol do you have on a typical day when you are drinking?: 1 or 2 3. How often do you have six or more drinks on one occasion?: Never Total Score: 1 SEPIDEH-7 AMB Questionnaire SEPIDEH-7 Date SEPIDEH - 7 assessed: 08/31/24 Feeling nervous, anxious, or on edge: 0 = Not at all Not being able to stop or control worryin = Not at all Worrying too much about different things: 0 = Not at all Trouble relaxin = Not at all Being so restless that it is hard to sit still: 0 = Not at all Becoming easily annoyed or irritable: 0 = Not at all Feeling afraid as if something awful might happen: 0 = Not at all Total SEPIDEH-7 score (0-4 normal; 5-9 mild; 10-14 moderate; 15-21 severe): 0 Source: Developed by Drs. Chavez Hawk, Mary Ellen Mayes, Odell Crowe and colleagues, with an educational tamar from [employer]. SEPIDEH-7 Assessment Billing SEPIDEH-7 Assessment Tool: SEPIDEH-7 Assessment 11847 ACT Questionnaire In the past 4 weeks, how much of the time did your asthma keep you from getting as much done at work, school or at home?: None of the time During the past 4 weeks, how often have you had shortness of breath?: Not at all During the past 4 weeks, how often did your asthma symptoms wake you up at night or earlier than usual in the morning?: Not at all During the past 4 weeks, how often have you had to use your rescue inhaler or nebulizer medication?: Not at all How would you rate your asthma control during the past 4 weeks?: Completely controlled ACT Interpretation: Negative Score: 25 Review of Systems Const Denies body aches, Denies chills, Denies excessive sweating, Denies fatigue, Denies fever(s) and Denies headache(s) Eyes Denies blurry vision ENT Denies dysphagia, Denies vertigo, Denies dizziness, Denies headache(s), Denies hearing loss and Denies tinnitus Card Denies chest pain, Denies chest pain with activity, Denies syncope, Denies irregular heart rhythm and Denies dyspnea Resp Denies chest congestion, Denies cough, Denies hemoptysis, Denies dyspnea and Denies wheezing GI Denies abdominal pain, Denies melena, Denies hematochezia, Denies coffee ground emesis, Denies dysphagia, Denies diarrhea, Denies nausea and Denies vomiting Denies urinary frequency, Denies dysuria, Denies urinary hesitancy and Denies urinary urgency Musc Denies arthralgias, Denies limited range of motion, Denies muscle cramps and Denies muscle weakness Skin/Breast Denies rash and Denies skin ulcer Neuro Denies Abnormal speech present, Denies confusion, Denies vertigo, Denies dizziness, Denies syncope, Denies headache(s), Denies memory loss and Denies seizure-like activity Psych Denies anxiety, Denies confusion, Denies depression, Denies memory loss, Denies panic attacks and Denies paranoia Endo Denies excessive sweating, Denies fatigue, Denies flushing, Denies polydipsia and Denies polyuria Aller/Immun Denies wheezing Physical exam (Primary Care) Vital Signs: Last Vital Signs Pulse 93 08/31/24 11:45 BP 126/62 08/31/24 11:45 Pulse Ox 98 08/31/24 11:45 Oxygen Delivery Method Room Air 08/31/24 11:45 BMI result Body Mass Index 29.9 Tobacco/Smoking Status: Tobacco use Status Tobacco use date assessed 02/27/24 08/31/24 11:41 Patient Tobacco Use Status Never used Tobacco 08/31/24 11:41 e-Cigarette/Vaping Use Never Used 08/31/24 11:41 PHQ-9: PHQ-9 Score PHQ-9: Total score 0 08/31/24 11:41 Depression Screening Interpretation: Negative Thrive Assessment: Date of Thrive Assessment Date Thrive assessed 08/31/24 08/31/24 11:41 Currently or been in a relationship where the following occur: I choose not to answer Const General: cooperative, comfortable, no acute distress, alert and awake; No confusion Orientation/consciousness: oriented to person, oriented to place, patient oriented x3 and No confusion HENMT Head: Yes normocephalic Ears: external ears normal and TM's normal bilaterally Face and sinus: No sinus tenderness Mouth: Normal oral and palatal mucosa present and tongue normal Teeth and gingiva: dentition normal and gingiva normal Throat: Yes posterior oropharynx normal, Yes tonsils normal and Yes uvula midline Eyes Conjunctivae: conjunctivae normal Sclerae: sclerae normal Pupils: Equal, round and reactive pupils present EOM: EOMs intact bilaterally Direct Ophthalmoscopy: No no photophobia Neck Neck: Yes no lymphadenopathy, No tender and Yes no JVD Thyroid: Thyroid normal Carotids: no bruits Chest Chest palpation & inspection: no tenderness Resp Effort & Inspection: normal respiratory effort, no audible wheezes, not labored and no stridor Auscultation: no crackles, no rales, no rhonchi and no wheezes Cardio Jugular venous distension: no JVD Rate: regular rate, not bradycardic and not tachycardic Rhythm: regular rhythm Bruits: no carotid bruits Peripheral pulses: Peripheral pulses 2+ throughout GI Inspection: Yes normal to inspection, No abdominal wall ecchymosis and No visible herniation Palpation (GI): Soft to palpation, nontender, no guarding, not rigid and No hepatosplenomegaly present Auscultation: normoactive bowel sounds General: Yes no CVA tenderness Back/Spine/Pelvis Back: no CVA tenderness and No back tenderness Cervical Spine: cervical ROM normal Thoracic/Lumbar Spine: thoracic and lumbar spine normal to inspection, straight leg raise negative bilaterally, No thoraco-lumbar ROM limited and No lumbar spinal tenderness Skin Lesions: no lesions Rashes: no rashes Wounds: no wounds Neuro General: oriented to person, oriented to place, patient oriented x3, CN's II-XI intact bilaterally and No confusion Cranial nerves: Yes Equal, round and reactive pupils present and Yes Normal accommodation reflex present Cognition (Neuro): normal cognition Speech: No Abnormal speech present Gait exam (Neuro): Normal gait present Motor exam (neuro): 5/5 motor strength present throughout Extrem Right upper extremity: full ROM; no cyanosis Left upper extremity: full ROM; no cyanosis Right lower extremity: no edema Left lower extremity: no edema Psych Appearance: grossly normal Mental Status: mental status grossly normal Affect: normal affect Attitude: cooperative Thought process: Normal thought process present Coding Level of Care Code Est Pt Prev Care 40-64y(49668) Diagnoses Annual physical exam Z00.00 Hyperthyroidism E05.90 Mild persistent asthma without complication J45.30 Asthma severity: mild Asthma persistence: persistent Asthma complication type: uncomplicated Hypercholesterolemia E78.00 Essential (primary) hypertension I10 Additional Codes SEPIDEH-7 Assessment Billing - SEPIDEH-7 Assessment Tool: SEPIDEH-7 Assessment 21779 ([id number]) PHQ-9 - 72536 - PHQ-9 Billing: Yes ([id number]) Asthma Control Questionnaire - ACT Interpretation: Negative ([id number]) Assessment & Plan Assessment & Plan (1) Annual physical exam: Code(s): Z00.00 - Encounter for general adult medical examination without abnormal findings Category: Medical Plan: As per HPI (2) Hyperthyroidism: Code(s): E05.90 - Thyrotoxicosis, unspecified without thyrotoxic crisis or storm Category: Medical Plan: Patient now followed by [place] [facility]. Most recent TSH very low and T3 elevated. She has been started on methimazole 10 mg and reports her hyperthyroid symptoms have stabilized. She will continue her follow-up with endocrinology. (3) Asthma: Code(s): J45.909 - Unspecified asthma, uncomplicated Category: Medical Qualifiers: Asthma severity: mild Asthma persistence: persistent Asthma complication type: uncomplicated Qualified Code(s): J45.30 - Mild persistent asthma, uncomplicated Plan: Patient reports her asthma has been fairly well controlled with p.r.n. use of her albuterol inhaler and daily use of her maintenance inhaler. No recent asthma exacerbations or nighttime awakenings with asthma symptoms. (4) Hypercholesterolemia: Code(s): E78.00 - Pure hypercholesterolemia, unspecified Category: Medical Plan: Most recent lipid panel acceptable. She will continue with atorvastatin 20 mg. Goal LDL to remain below 130 (5) Essential (primary) hypertension: Code(s): I10 - Essential (primary) hypertension Category: Medical Plan: Patient's blood pressure acceptable today in office. She continues on losartan 50 mg with good effect on her blood pressure. Goal blood pressure to remain below 140/90 Orders: Orders Complete Blood Count no Diff 4 Months E78.00 - Pure hypercholesterolemia, unspecified Lipid Panel 4 Months E78.00 - Pure hypercholesterolemia, unspecified Comprehensive [place]. Panel Fast 4 Months E78.00 - Pure hypercholesterolemia, unspecified Microalbumin, Random (w Creat) 4 Months I10 - Essential (primary) hypertension
[2024-08-31 11:45] VITALS: BP 126/62; PULSE 93; O2SAT 98; BMI 29.9
--- OUTSIDE RECORDS SUMMARY | 2024-09-02 15:10 | XMS_ITS | Patient Health Record ---
Author Organization 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 Name Role Phone Krish Levy Primary Care Provider Fredy John Jr Unavailable ALLERGIES Allergen (clinical drug ingredient) Drug/Non Drug [...] Problem Colon cancer screening (Z12.11) Active confirmed 032632107 Problem Gastroesophageal reflux disease without esophagitis (K21.9) Active confirmed 158790368 Problem Abdominal discomfort (R10.9) Active confirmed 28321962 Problem Gas bloat syndrome (K92.89) Active confirmed 306190127 PLAN OF TREATMENT Pending Test Test Name Order Date LIVER PROFILE 12/05/2022 LIPASE 12/05/2022 CBC w/o DIFF 12/05/2022 US ABD 12/05/2022 Future Test Test Name Order Date COLONOSCOPY 12/01/2014 UPPER GI ENDOSCOPY 03/11/2020 COLONOSCOPY 03/11/2020 Insurance Providers Payer Name Payer Address Payer Phone Subscriber Number Group Number Insured Name Patient Relationship to Insured Coverage Start Date Coverage End Date [facility] [address] [place] [place] [phone] [id number] DRISS NGUYEN Self - patient is the [...]
== END 2024-08-31 12:04 | disposition home or self-care (01) ==
PROVIDERS: PCP Physician Assistant; Visit Provider Physician Assistant
DX: Z00.00 Encounter for general adult medical examination without abnormal findings (principal); E05.90 Thyrotoxicosis, unspecified without thyrotoxic crisis or storm; J45.30 Mild persistent asthma, uncomplicated; E78.00 Pure hypercholesterolemia, unspecified; I10 Essential (primary) hypertension

== ENCOUNTER → 2024-08-31 11:19 | Outpatient (BNVA) | payer BC, SELFPAY | PROVIDERS: PCP Physician Assistant; Visit Provider Physician Assistant | DX: Z00.00 Encounter for general adult medical examination without abnormal findings (principal); E05.90 Thyrotoxicosis, unspecified without thyrotoxic crisis or storm; J45.30 Mild persistent asthma, uncomplicated; E78.00 Pure hypercholesterolemia, unspecified; I10 Essential (primary) hypertension; Z79.899 Other long term (current) drug therapy | CPT/HCPCS: 96127; 96160 ==

== ENCOUNTER 2024-09-11 07:52 | Outpatient (AMB) | payer BC, SELFPAY ==
[2024-09-11 07:54] VITALS: BP 150/76; PULSE 85; BMI 29.8
--- NOTE | 2024-09-11 07:54 | MHC.OFFVIS ---
Vital Signs 09/11/24 07:54 Height 5 ft 4 in Weight 173 lb 8.061 oz BMI 29.8 BP 150/76 H Blood Pressure Location Lt brachial Position Sitting Pulse 85 Pulse Source Pulse Oximeter Intake Visit Reasons: Thyrotoxicosism Intake Note: Patient present today for Thyrotoxicosism follow up visit. Java Flex Developer Required: No Accompanied by: Self / Same As Patient Allergies coconut oil Allergy (Severe, Verified 09/11/24 07:58) Hives amoxicillin [Amoxicillin] Allergy (Unknown, Verified 09/11/24 07:58) UNKNOWN azithromycin Allergy (Unknown, Verified 09/11/24 07:58) rash penicillin V Allergy (Unknown, Verified 09/11/24 07:58) rash lisinopril Adverse Reaction (Intermediate, Verified 09/11/24 07:58) Cough HPI Comments Details: 58-year-old female coming in today for follow up of thyrotoxicosis. HPI from prior visit Was diagnosed with hypothyroidism since 20 years and been on levothyroxine 25 mcg daily since that time. Since summer 2023 , complaining of excessive fatigue. Intermittent palpitations. No tremors. No loose stools or constipations. No hair or skin changes. No mood changes. Weight down by 10 lbs since summer 2023. Reduced appetite. Post menopausal since age 49. Denies diaphoresis except at night time. Reports eyes are dry , intermittent bluriness. Voice is hoarse, diagnosed with vocal cord polyp treated medically recently. No other compressive sx. Patient denies any difficulty swallowing, pain on swallowing. No preceding contrast exposure. Reports she often has sinusitis. No other viral illness recently. Blood work 07/21 showed TSH suppressed at<0.01 and free T4 high at 2.86. Levothyroxine was subsequently stopped, and she was given a prescription of methimazole 5 mg daily which she took for 5 days before she is starting having excessive acid reflux since stopped it on 07/28/2024. Patient denies any history of childhood neck radiation. Denies having ever used lithium, amiodarone or biotin supplements. Patient denies any family history of thyroid cancer. Sister had thyroid disease and some adrenal disorder. Alcohol no drink in 5 weeks , otherwise was drinking 2 drinks per day Denies drug use. Interval history Labs 08/04/2024 again showed suppressed TSH of 0 less than 0.01, free T4 elevated at 2.64, total T3 elevated at 348, showed positive TSI antibody of 179, elevated TSH receptor antibody of 6.28 and elevated TPO antibody of 136. Labs repeated 08/26/2024 again showed suppressed TSH of 0.01, free T4 elevated at 2.91, total T3 elevated at 293. Started on methimazole 10 mg daily. Reports improved fatigue, no tremors. still having intermittent palpitations. Weight stable now, apetite improved. Review of systems Constitutional: no fevers, chills HEENT: no changes in vision Cardiac: No chest pain Pulmonary: No SOB GI:No abdominal pain, no nausea or vomiting, no anorexia, no blood in stool : no burning micturition, dysuria or increase in urinary frequency Physical exam General: sitting comfortably in no acute distress HEENT: normocephalic/atraumatic, EOM intact, moist oral mucosa Neck: supple, symmetrical, no thyromegaly , no dorsocervical or supraclavicular fat pads Cardiac: normal heart sounds Pulm: normal breath sounds B/L, no added breath sounds Abd: not distended, no tenderness Extremities: no edema, no signs of myxedema, very mild tremor noted Neuro: AAO x3, Speech: normal, no facial droop, moving all 4 extremities Laboratory Tests 10/21/18 12/29/20 12/27/21 06:19 06:10 06:09 Free T4 1.19 TSH 1.87 2.42 08/29/23 03/04/24 07/21/24 06:18 06:09 06:30 Free T4 2.86 H TSH 1.73 1.46 < 0.01 L Laboratory Tests 08/04/24 08/26/24 08:38 06:21 TSH < 0.01 L < 0.01 L Free T4 2.64 H 2.91 H Total T3 348 H 293 H Thyroid Stim Immunoglob 179 H Laboratory Tests 08/04/24 08:38 Thyroglobulin Antibody <1 Thyroid Peroxidase Ab 136 H TSH Receptor Ab 6.28 H PFSH Medical History (Updated 09/11/24 @ 08:17 by Raegan Sloan MD) Graves disease Elevated LFTs FHx: colon cancer GERD (gastroesophageal reflux disease) Hypertension History of mammogram Anxiety Hypothyroid Hypercholesterolemia Asthma Surgical History History of ankle surgery History of right knee surgery H/O colonoscopy Family History Mother Myocardial infarct, Onset Age: 74 Colon cancer CVD (cardiovascular disease) Sister Colon cancer Paternal Grandmother History of breast cancer Brother DMII (diabetes mellitus, type 2) Social History (Updated 08/31/24 @ 11:57 by Krish Levy PA-C) Housing: Apartment Alcohol intake: current Alcohol type: beer Patient Tobacco Use Status: Never used Tobacco e-Cigarette/Vaping Use: Never Used Second Hand Smoke Exposure: No service: No Current occupational status: employed 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 Subsequently her levothyroxine was stopped and her primary care provider prescribed her methimazole 5 mg daily which she took for 5 days up until 07/28/2024 however was experiencing significant heartburn and stopped it. She subsequently continued to show signs of hyperthyroidism with repeat blood work in July and August again showing suppressed TSH, elevated free T4 and total T3 with the elevated TSI, TPO and TSH receptor antibodies consistent with autoimmune hyperthyroidism. Started on methimazole 10 mg daily on 08/26/2024. All of her symptoms have significantly improved. Discussed with patient that about 30% of the patients have remission after 12-18 months of treatment with methimazole. More recent data has shown longer periods of treatment resulting in better remission rates as well. At this time we will plan to continue treatment with methimazole and continue adjusting the dose as needed. In the long run if she does not have remission, we also briefly discussed definitive therapy options of radioactive iodine ablation and total thyroidectomy and the need for requiring long-term levothyroxine therapy after those procedures. Plan: -continue methimazole 10 mg daily -do blood work today with TSH, free T4, total T3, in 2-4 weeks depending on how she is feeling -follow up in 3 months (2) Graves disease: Code(s): E05.00 - Thyrotoxicosis with diffuse goiter without thyrotoxic crisis or storm Category: Medical Plan: See above Plan I spent 30 minutes in reviewing the record, seeing the patient and documenting in the medical record. Patient Instructions: Continue methimazole 10 mg daily Do labs in 2-4 weeks I will see you back in 3 months The following were discussed as potential side effects of methimazole: - Serious skin rashes - nausea, vomiting, or severe hepatic injury - Agranulocytosis: a rare side effect of methimazole involves a severe decrease in the production of white blood cells. This condition is extremely serious, but affects only one out of every 200 to 500 people who take an antithyroid drug. Agranulocytosis more commonly occurs within the first three months of starting treatment with an antithyroid drug, but can occur at any time. If patient develops a fever (temperature above 100.5F), or other signs or symptoms of infection, she should stop taking the tapazole and immediately have a complete blood count (CBC) done. Serious and potentially life threatening infections, or even , can occur before agranulocytosis resolves. However, once the antithyroid drug is stopped, agranulocytosis usually resolves within a week. - Arthralgias, myalgias - Renal: Nephritis - Fever Patient will stop medication and call our office if these occur. Coding Level of Care Code Est Pt Level 4 (44857) Diagnoses Hyperthyroidism E05.90 Graves disease E05.00 Time Spent (min) 30
== END 2024-09-11 08:16 | disposition home or self-care (01) ==
PROVIDERS: PCP Physician Assistant; Visit Provider Student in an Organized Health Care Education/Training Program
DX: E05.90 Thyrotoxicosis, unspecified without thyrotoxic crisis or storm (principal); E05.00 Thyrotoxicosis with diffuse goiter without thyrotoxic crisis or storm
CPT/HCPCS: 99214

== ENCOUNTER 2024-09-18 07:27 | Outpatient (REF) | payer BC, SELFPAY ==
[2024-09-18 07:38] LABS: MANUAL DIFF FLAG NO
[2024-09-18 07:52] LABS: Basophils Absolute Auto 0.1 X10*3/uL (0.0-0.2); Basophils Percent Auto 0.8 % (0-2); Eosinophils Absolute Auto 0.5 X10*3/uL (0.0-0.4); Hematocrit 37.3 % (37.0-47.0); Hemoglobin 11.5 g/dl (12.0-16.0); Imm Gran Abs Auto 0.03 X10*3/uL (0.00-0.03); Imm Gran Pct Auto 0.4 % (0.0-0.4); Lymphocytes Absolute Auto 1.7 X10*3/uL (1.2-4.9); Lymphocytes Percent Auto 22.9 % (20-40); Mean Corpuscular HGB Conc 30.8 g/dl (31.0-35.0); Mean Corpuscular Hemoglobin 25.9 pg (27.0-33.0); Monocytes Percent Auto 13.4 % (2-11); Neutrophils Absolute Auto 4.2 x10*3/uL (2.0-8.3); Neutrophils Percent Auto 56.5 % (45-73); Platelet Count 328 X10*3/uL (160-400); Red Blood Count 4.44 X10*6/uL (4.20-5.50); Red Cell Distribution Width 14.4 % (11.0-16.0); White Blood Count 7.5 X10*3/uL (4.8-10.8)
== END 2024-09-18 07:28 | disposition home or self-care (01) ==
LOC: HO.LAB 07:27
PROVIDERS: PCP Physician Assistant; Visit Provider Student in an Organized Health Care Education/Training Program
DX: E05.00 Thyrotoxicosis with diffuse goiter without thyrotoxic crisis or storm (principal)
CPT/HCPCS: 36415; 85025

== ENCOUNTER 2024-10-05 06:06 | Outpatient (REF) | payer BC, SELFPAY ==
[2024-10-05 08:26] LABS: Free T4 (Free Thyroxine) 1.01 ng/dL (0.71-1.85); Thyroid Stimulating Hormone 0.03 uIU/mL (0.32-4.0)
[2024-10-06 15:47] LABS: Triiodothyronine T3 Total 101 ng/dL (76-181)
== END 2024-10-05 06:07 | disposition home or self-care (01) ==
LOC: HO.LAB 06:06
PROVIDERS: PCP Physician Assistant; Visit Provider Student in an Organized Health Care Education/Training Program
DX: E05.90 Thyrotoxicosis, unspecified without thyrotoxic crisis or storm (principal)
CPT/HCPCS: 36415; 84439; 84443; 84480

== ENCOUNTER 2024-10-12 10:48 | Outpatient (AMB) | payer BC, SELFPAY ==
[2024-10-12 10:56] VITALS: BMI 29.7
--- NOTE | 2024-10-12 10:56 | MHC.OFFVIS ---
Vital Signs 10/12/24 10:56 Height 5 ft 4 in Weight 173 lb BMI 29.7 Intake Visit Reasons: New prob- LT wrist pain Intake Note: Leia 59 yr old right hand dominant female presents today for a new problem visit for her left wrist pain. States her wrist has been sore since 09/16/24. States its hurts when she moves her wrist side ways, mainly on her CMC area. She recalls carrying pellets up a flight of stairs and didn't hurt at the moment but eventually she felt sore, pain when pressure is applied and hears a click. Denies numbness and tingling, injection, O.T or any braces. Allergies coconut oil Allergy (Severe, Verified 10/12/24 10:58) Hives amoxicillin [Amoxicillin] Allergy (Unknown, Verified 10/12/24 10:58) UNKNOWN azithromycin Allergy (Unknown, Verified 10/12/24 10:58) rash penicillin V Allergy (Unknown, Verified 10/12/24 10:58) rash lisinopril Adverse Reaction (Intermediate, Verified 10/12/24 10:58) Cough HPI HPI New prob- LT wrist pain: Details: Patient is a 59 year presents for evaluation of left thumb and wrist pain ongoing since approximately Nestor. Patient states that this pain is primarily located in the base of the left thumb, radiating up into the thumb and down into the forearm. The patient states that she has not had any treatment for this in the past, but does state she has been trying topical on [id number] pain medications with some relief. Denies any numbness or tingling in the upper extremities. No other acute complaints or concerns at this time. [facility] Medical History (Updated 10/12/24 @ 13:06 by ARLENE Carbone) Graves disease Elevated LFTs FHx: colon cancer GERD (gastroesophageal reflux disease) Hypertension History of mammogram Anxiety Hypothyroid Hypercholesterolemia Asthma Surgical History History of ankle surgery History of right knee surgery H/O colonoscopy Family History Mother Myocardial infarct, Onset Age: 74 Colon cancer CVD (cardiovascular disease) Sister Colon cancer Paternal Grandmother History of breast cancer Brother DMII (diabetes mellitus, type 2) Social History Housing: Apartment Alcohol intake: current Alcohol type: beer Patient Tobacco Use Status: Never used Tobacco e-Cigarette/Vaping Use: Never Used Second Hand Smoke Exposure: No service: No Current occupational status: employed 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 Neuro: Normal sensation of the tips of all digits of the left hand at this time Vascular: Cap refill brisk Pain: Tenderness to palpation of the left radial styloid No tenderness to palpation of the ulnar styloid, DRUJ, or elsewhere in the left hand or wrist Positive Kristian on the left ROM: Patient is able to make a closed fist and extend all digits of the left hand fully and without difficulty Skin: No lacerations or abrasions. General: No ecchymosis, erythema, or evidence of infection. Psych: Appears grossly normal Affect normal Attitude cooperative Office Procedures AMB Tendon Injection Tendon Injection Details: De Quervain injection, left [id number] Tendon Sheath Injection All charges added?: Procedure code (CPT) selection complete Assessment & Plan Assessment & Plan (1) De Quervain's tenosynovitis, left: Code(s): M65.4 - Radial styloid tenosynovitis [de Quervain] Category: Medical Plan 1. De Quervain tenosynovitis, left I educated the patient about this condition I educated the patient about the treatment options available Patient would like to proceed with steroid injection at this time Injection #1: The risks and benefits of a steroid injection including but not limited to risk of damage to blood vessels, nerves, tendons, infection, skin bleaching, failure to improve symptoms, increased pain, and possible need for further injections or other intervention were discussed with the patient and the patient wishes to proceed with the steroid injection. Once consent was obtained, I sterilely prepped the area over the 1st dorsal compartment of the [RT/LT] thumb. I then injected the 1st dorsal compartment with a combination of 1 mL of dexamethasone (4mg/ml), and 1% lidocaine. The patient tolerated the procedure well with no complications and good resolution of their symptoms prior to leaving clinic. If the patient continues to have pain 6-8 weeks following this injection, they may call to schedule appointment to discuss alternative treatment options Orders: Orders XR wrist LT min 3V Today M25.532 - Pain in left wrist Coding Level of Care Code New Pt Level 3 (98639) Diagnoses De Quervain's tenosynovitis, left M65.4 CPT Codes Tendon Injection - Tendon Injection 1: [id number] Tendon Sheath Injection ([id number])
== END 2024-10-12 11:25 | disposition home or self-care (01) ==
PROVIDERS: PCP Physician Assistant
DX: M65.4 Radial styloid tenosynovitis [de Quervain] (principal)
CPT/HCPCS: 20550; 99203

== ENCOUNTER 2024-11-11 06:10 | Outpatient (REF) | payer BC, SELFPAY ==
[2024-11-11 07:52] LABS: Free T4 (Free Thyroxine) 0.87 ng/dL (0.71-1.85); Thyroid Stimulating Hormone 5.98 uIU/mL (0.32-4.0)
[2024-11-12 13:09] LABS: Triiodothyronine T3 Total 89 ng/dL (76-181)
== END 2024-11-11 06:11 | disposition home or self-care (01) ==
LOC: HO.LAB 06:10
PROVIDERS: PCP Physician Assistant; Visit Provider Student in an Organized Health Care Education/Training Program
DX: E05.00 Thyrotoxicosis with diffuse goiter without thyrotoxic crisis or storm (principal); E05.90 Thyrotoxicosis, unspecified without thyrotoxic crisis or storm
CPT/HCPCS: 36415; 84439; 84443; 84480

== ENCOUNTER 2024-12-04 06:09 | Outpatient (REF) | payer BC, SELFPAY ==
[2024-12-04 08:14] LABS: Free T4 (Free Thyroxine) 1.08 ng/dL (0.71-1.85); Thyroid Stimulating Hormone 2.79 uIU/mL (0.32-4.0)
[2024-12-05 06:48] LABS: Triiodothyronine T3 Total 104 ng/dL (76-181)
== END 2024-12-04 06:10 | disposition home or self-care (01) ==
LOC: HO.LAB 06:09
PROVIDERS: PCP Physician Assistant; Visit Provider Student in an Organized Health Care Education/Training Program
DX: E05.00 Thyrotoxicosis with diffuse goiter without thyrotoxic crisis or storm (principal); E05.90 Thyrotoxicosis, unspecified without thyrotoxic crisis or storm
CPT/HCPCS: 36415; 84439; 84443; 84480

== ENCOUNTER 2024-12-07 08:40 | Outpatient (REF) | payer BC, SELFPAY ==
--- OUTSIDE RECORDS SUMMARY | 2024-12-07 08:59 | XMS_ITS | Patient Health Record ---
Author Organization [facility] Address [address] [place] [address] Care Team Providers Care Director Index Name Role Phone Krish Levy Primary Care Provider Fredy John Jr Unavailable [phone] 2 Allergies Allergen (clinical drug ingredient) Drug/Non Drug Allergy documented on EMR Reaction Allergy Type Onset Date Status coconut oil Coconut Oil Unknown Drug Allergy Act merry amoxicillin Amoxicillin (uncoded) Unknown Allergy Active Reason For Referral No Information Medications Medication SIG (Take, Route, Frequency, Duration) Notes [...] 1 puff Inhalation Twice a day Active Immunizations Vaccine Route Administration Date Status Comme nts Influenza Unknown 06/23/2019 Administered Influenza Unknown 07/10/2022 Administered Problems Problem Type SNOMED Code ICD Code Onset Dates Problem Status W/U Status Risk Notes Problem 929179238 Colon cancer screening (Z12.11) Active confirmed Problem 333164943 Gastroesophageal reflux disease without esophagitis (K21.9) Active confirmed Problem 46454760 Abdominal discom fort (R10.9) Active confirmed Problem 086173134 Gas bloat syndro me (K92.89) Active confirmed Plan Of Treatment Pending Test Test Name Order Date LIVER PROFILE 12/05/2022 LIPASE 12/05/2022 CBC w/o DIFF 12/05/2022 US ABD 12/05/2022 Future Test Test Name Order Date COLONOSCOPY 12/01/2014 UPPER GI ENDOSCOPY 03/11/2020 COLONOSCOPY 03/11/2020 Insurance Providers Payer Name Payer Address Payer Phone Subscriber Number Group Number Insured Name Patient Relationship to Insured Coverage Start Date Coverage End Date [facility] [address] [place] [address] [phone] [id number] DRISS NGUYEN Self - patient is the insured Medical (General) History Medical History History ICD Code colonoscopy 08/02/20, hyperp lastic polyp, five-year followup due to family history of colon cancer and personal history of tubular adenomas. Hemorrhoids Diarrhea Hyperthyroidism Menorrhagia Elevated cholesterol Environmental allergies kidney stones 2019 Hypertension Gastroesophageal reflux dise ase, EGD 08/02/20, small hiatal hernia, and no H. pylori or Ponce's esophagus. Surgical History Surgery Date(Month/Year) knee surgery X3 ankle surgery left 2019
== END 2024-12-07 08:41 | disposition home or self-care (01) ==
LOC: HO.MAMMO 08:40
PROVIDERS: PCP Physician Assistant; Visit Provider Physician Assistant
DX: Z12.31 Encounter for screening mammogram for malignant neoplasm of breast (principal)
CPT/HCPCS: 77063; 77067

== ENCOUNTER → 2024-12-07 09:00 | Outpatient (BNV) | payer BC, SELFPAY | PROVIDERS: PCP Physician Assistant; Visit Provider Internal Medicine | DX: Z12.31 Encounter for screening mammogram for malignant neoplasm of breast (principal) | CPT/HCPCS: 77063; 77067 ==

== ENCOUNTER 2024-12-11 07:27 | Outpatient (AMB) | payer BC, SELFPAY ==
--- NOTE | 2024-12-11 07:28 | MHC.OFFVIS ---
Vital Signs 12/11/24 07:29 Height 5 ft 4 in Weight 176 lb 5.917 oz BMI 30.3 BP 138/76 Blood Pressure Location Rt brachial Position Sitting Pulse 79 Pulse Source Pulse Oximeter Pulse Oximetry (%) 100 Oxygen Delivery Method Room Air Intake Visit Reasons: Thyrotoxicosism Intake Note: Patient present today for Thyrotoxicosism follow up visit. Angle Shear Operator Required: No Accompanied by: Self / Same As Patient Allergies coconut oil Allergy (Severe, Verified 10/12/24 10:58) Hives amoxicillin [Amoxicillin] Allergy (Unknown, Verified 10/12/24 10:58) UNKNOWN azithromycin Allergy (Unknown, Verified 10/12/24 10:58) rash penicillin V Allergy (Unknown, Verified 10/12/24 10:58) rash lisinopril Adverse Reaction (Intermediate, Verified 10/12/24 10:58) Cough Medication List - Last Reconciled 12/11/24 by Raegan Sloan MD albuterol sulfate 90 mcg/actuation 1 inh inhalation QID PRN 30 days atorvastatin 20 mg PO DAILY doxycycline monohydrate 100 mg PO BID 7 days fluticasone propion-salmeterol 250-50 mcg/dose (Wixela Inhub) 1 ea inhalation BID 30 days losartan 50 mg PO DAILY 90 days methimazole 5 mg PO DAILY montelukast 10 mg PO BEDTIME HPI Comments Details: 58-year-old female coming in today for follow up of thyrotoxicosis. HPI from prior visit Was diagnosed with hypothyroidism since 20 years and been on levothyroxine 25 mcg daily since that time. Since summer 2023 , complaining of excessive fatigue. Intermittent palpitations. No tremors. No loose stools or constipations. No hair or skin changes. No mood changes. Weight down by 10 lbs since summer 2023. Reduced appetite. Post menopausal since age 49. Denies diaphoresis except at night time. Reports eyes are dry , intermittent bluriness. Voice is hoarse, diagnosed with vocal cord polyp treated medically recently. No other compressive sx. Patient denies any difficulty swallowing, pain on swallowing. No preceding contrast exposure. Reports she often has sinusitis. No other viral illness recently. Blood work 07/21 showed TSH suppressed at<0.01 and free T4 high at 2.86. Levothyroxine was subsequently stopped, and she was given a prescription of methimazole 5 mg daily which she took for 5 days before she is starting having excessive acid reflux since stopped it on 07/28/2024. Patient denies any history of childhood neck radiation. Denies having ever used lithium, amiodarone or biotin supplements. Patient denies any family history of thyroid cancer. Sister had thyroid disease and some adrenal disorder. Alcohol no drink in 5 weeks , otherwise was drinking 2 drinks per day Denies drug use. Interval history 11/11/24: TSH 5.98 , free 0.87, total T3 89 11/11/24: methimazole reduced to 5 mg daily 12/04/24: TSH 2.79, free t4 1.08, total T3 104 Reports resolution of tremors, fatigue, palpitations. Weight stable now, apetite improved. Physical exam General: sitting comfortably in no acute distress HEENT: normocephalic/atraumatic, EOM intact, moist oral mucosa Neck: supple, symmetrical, no thyromegaly , no dorsocervical or supraclavicular fat pads Cardiac: normal heart sounds Pulm: normal breath sounds B/L, no added breath sounds Abd: not distended, no tenderness Extremities: no edema, no signs of myxedema, very mild tremor noted Neuro: AAO x3, Speech: normal, no facial droop, moving all 4 extremities Laboratory Tests 10/21/18 12/29/20 12/27/21 06:19 06:10 06:09 Free T4 1.19 TSH 1.87 2.42 08/29/23 03/04/24 07/21/24 06:18 06:09 06:30 Free T4 2.86 H TSH 1.73 1.46 < 0.01 L Laboratory Tests 08/04/24 08/26/24 08:38 06:21 TSH < 0.01 L < 0.01 L Free T4 2.64 H 2.91 H Total T3 348 H 293 H Thyroid Stim Immunoglob 179 H Laboratory Tests 08/04/24 08:38 Thyroglobulin Antibody <1 Thyroid Peroxidase Ab 136 H TSH Receptor Ab 6.28 H Laboratory Tests 08/26/24 10/05/24 11/11/24 06:21 06:17 06:22 TSH < 0.01 L 0.03 L 5.98 H Free T4 2.91 H 1.01 0.87 Total T3 293 H 101 89 12/04/24 06:24 TSH 2.79 Free T4 1.08 Total T3 104 PFSH Medical History (Updated 10/12/24 @ 13:06 by ARLENE Carbone) Graves disease Elevated LFTs FHx: colon cancer GERD (gastroesophageal reflux disease) Hypertension History of mammogram Anxiety Hypothyroid Hypercholesterolemia Asthma Surgical History History of ankle surgery History of right knee surgery H/O colonoscopy Family History Mother Myocardial infarct, Onset Age: 74 Colon cancer CVD (cardiovascular disease) Sister Colon cancer Paternal Grandmother History of breast cancer Brother DMII (diabetes mellitus, type 2) Social History Housing: Apartment Alcohol intake: current Alcohol type: beer Patient Tobacco Use Status: Never used Tobacco e-Cigarette/Vaping Use: Never Used Second Hand Smoke Exposure: No service: No Current occupational status: employed 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) Current occupational exposures/hazards: No Cognitive needs: No Hearing needs: No Vision needs: No Physical Exam Vital Signs: Last Vital Signs Pulse 79 12/11/24 07:29 BP 138/76 12/11/24 07:29 Pulse Ox 100 12/11/24 07:29 Oxygen Delivery Method Room Air 12/11/24 07:29 BMI result Body Mass Index 30.3 Assessment & Plan Assessment & Plan (1) Hyperthyroidism: Code(s): E05.90 - Thyrotoxicosis, unspecified without thyrotoxic crisis or storm Category: Medical Plan: 58-year-old female with past medical history significant for hypertension, hyperlipidemia, acid reflux, asthma with a history significant for hypothyroidism who has been on levothyroxine 25 mcg daily for the past 20 years, who had blood work on 07/21/2024 which showed suppressed TSH with elevated free T4 of 2.86. Subsequently her levothyroxine was stopped with repeat blood work in July and August again showing suppressed TSH, elevated free T4 and total T3 with the elevated TSI, TPO and TSH receptor antibodies consistent with autoimmune hyperthyroidism. Started on methimazole 10 mg daily on 08/26/2024. 11/11/24: TSH high 5.98 , free T4 0.87, total T3 89 11/11/24: methimazole reduced to 5 mg daily 12/04/24: TSH 2.79, free t4 1.08, total T3 104 All of her symptoms have significantly improved. Discussed with patient that about 30% of the patients have remission after 12-18 months of treatment with methimazole. More recent data has shown longer periods of treatment resulting in better remission rates as well. At this time we will plan to continue treatment with methimazole and continue adjusting the dose as needed. In the long run if she does not have remission, we also briefly discussed definitive therapy options of radioactive iodine ablation and total thyroidectomy and the need for requiring long-term levothyroxine therapy after those procedures. Plan: -continue methimazole 5 mg daily -do blood work with TSH, free T4, total T3, in 3 months -follow up in 6 months (2) Graves disease: Code(s): E05.00 - Thyrotoxicosis with diffuse goiter without thyrotoxic crisis or storm Category: Medical Plan: See above Plan see above Orders: Orders Free T4 (Free Thyroxine) 3 Months E05.00 - Thyrotoxicosis with diffuse goiter without thyrotoxic crisis or storm, E05.90 - Thyrotoxicosis, unspecified without thyrotoxic crisis or storm Thyroid Stimulating Hormone 3 Months E05.00 - Thyrotoxicosis with diffuse goiter without thyrotoxic crisis or storm, E05.90 - Thyrotoxicosis, unspecified without thyrotoxic crisis or storm Triiodothyronine T3 Total 3 Months E05.00 - Thyrotoxicosis with diffuse goiter without thyrotoxic crisis or storm, E05.90 - Thyrotoxicosis, unspecified without thyrotoxic crisis or storm Medications: Refilled methimazole 5 mg PO DAILY 30 tabs 7RF Patient Instructions: Continue methimazole 5 mg daily Do blood work in 3 months Follow up in 6 months Coding Level of Care Code Est Pt Level 3 (03567) Diagnoses Hyperthyroidism E05.90 Graves disease E05.00
[2024-12-11 07:29] VITALS: BP 138/76; PULSE 79; O2SAT 100; BMI 30.3
--- OUTSIDE RECORDS SUMMARY | 2024-12-11 07:30 | XMS_ITS | Patient Health Record ---
Author Organization [facility] Address [address] [place] [address] Care Team Providers Care Sericulturist Name Role Phone Krish Levy Primary Care Provider Fredy John Jr Unavailable Allergies Allergen (clinical drug ingredient) Drug/Non Drug [...] Problem Status W/U Status Risk Notes Problem [id number] Colon cancer screening (Z12.11) Active confirmed Problem 898498299 Gastroesophageal reflux disease without esophagitis (K21.9) Active confirmed Problem 54756524 Abdominal discom fort (R10.9) Active confirmed Problem 854572781 Gas bloat syndro me (K92.89) Active confirmed [...] Insured Coverage Start Date Coverage End Date [facility] [address] [place] [address] [id number] DRISS NGUYEN Self - patient is the [...]
== END 2024-12-11 07:58 | disposition home or self-care (01) ==
LOC: HO.ENCR 07:28
PROVIDERS: PCP Physician Assistant; Visit Provider Student in an Organized Health Care Education/Training Program
DX: E05.90 Thyrotoxicosis, unspecified without thyrotoxic crisis or storm (principal); E05.00 Thyrotoxicosis with diffuse goiter without thyrotoxic crisis or storm
CPT/HCPCS: 99213

== ENCOUNTER 2024-12-29 07:59 | Outpatient (AMB) | payer BC, SELFPAY ==
--- OUTSIDE RECORDS SUMMARY | 2024-12-29 08:02 | XMS_ITS | Patient Health Record ---
Author Organization [facility] Address [address] [place] [address] Care Team Providers Care Stone Splitter Name Role Phone Krish Levy Primary Care Provider Fredy John Jr Unavailable [phone] Allergies Allergen (clinical drug ingredient) Drug/Non Drug [...] Problem Status W/U Status Risk Notes Problem [id number] Colon cancer screening (Z12.11) Active confirmed Problem 285824214 Gastroesophageal reflux disease without esophagitis (K21.9) Active confirmed Problem 84204368 Abdominal discom fort (R10.9) Active confirmed Problem 853542652 Gas bloat syndro me (K92.89) Active confirmed [...] Coverage Start Date Coverage End Date [facility] [address] [place] [address] [phone] [id number] DRISS NGUYEN Self - patient is the [...]
--- NOTE | 2024-12-29 08:06 | A.OFFVIS_ITS ---
Intake Visit Reasons: OV- LT wrist pain, last inj 10/12/24 Intake Note: Leia is a 59 year old right hand dominant female who presents today for a follow up of her De Quervain's tenosynovitis, left s/p injection by ARLENE Mcintosh on 10/12/24. Patient reports her last injection did not give her any kind of relief. She reports she thinks it made her symptoms worse. She started experiencing numbness in her hand at night with radiating pain into the forearm. Ulnar and radial deviation, gripping, pinching, and gasping exacerbate her pain. Tylenol and ibuprofen do not provide adquete relief. Allergies coconut oil Allergy (Severe, Verified 12/29/24 08:09) Hives amoxicillin [Amoxicillin] Allergy (Unknown, Verified 12/29/24 08:09) UNKNOWN azithromycin Allergy (Unknown, Verified 12/29/24 08:09) rash penicillin V Allergy (Unknown, Verified 12/29/24 08:09) rash lisinopril Adverse Reaction (Intermediate, Verified 12/29/24 08:09) Cough HPI HPI OV- LT wrist pain, last inj 10/12/24: Details: Leia is a 59 year old right hand dominant female who presents today for a follow up of her De Quervain's tenosynovitis, left s/p injection by ARLENE Mcintosh on 10/12/24. Patient reports her last injection did not give her any kind of relief. She reports she thinks it made her symptoms worse. She started experiencing numbness in her hand at night with radiating pain into the forearm. Ulnar and radial deviation, gripping, pinching, and gasping exacerbate her pain. Tylenol and ibuprofen do not provide adquete relief. [facility] Medical History Graves disease Elevated LFTs FHx: colon cancer GERD (gastroesophageal reflux disease) Hypertension History of mammogram Anxiety Hypothyroid Hypercholesterolemia Asthma Surgical History History of ankle surgery History of right knee surgery H/O colonoscopy Family History Mother Myocardial infarct, Onset Age: 74 Colon cancer CVD (cardiovascular disease) Sister Colon cancer Paternal Grandmother History of breast cancer Brother DMII (diabetes mellitus, type 2) Social History Housing: Apartment Alcohol intake: current Alcohol type: beer Patient Tobacco Use Status: Never used Tobacco e-Cigarette/Vaping Use: Never Used Second Hand Smoke Exposure: No service: No Current occupational status: employed 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 Neuro: Normal sensation of the tips of all digits of the left hand at this time Vascular: Cap refill brisk Pain: Tenderness to palpation of the left radial styloid No tenderness to palpation of the ulnar styloid, DRUJ, or elsewhere in the left hand or wrist Positive Kristian on the left ROM: Patient is able to make a closed fist and extend all digits of the left hand fully and without difficulty Skin: No lacerations or abrasions. General: No ecchymosis, erythema, or evidence of infection. Psych: Appears grossly normal Affect normal Attitude cooperative Assessment & Plan Assessment & Plan (1) De Quervain's tenosynovitis, left: Code(s): M65.4 - Radial styloid tenosynovitis [de Quervain] Category: Medical Plan 1. De Quervain tenosynovitis, left Patient is educated about this condition Patient is educated about the typical treatment course At this time, patient is interested in surgical intervention, but states that she will need some time to get her affairs in order at work before booking Patient will call us when she is ready to get signed up for [facility] release Coding Level of Care Code Est Pt Level 3 (63050) Diagnoses De Quervain's tenosynovitis, left M65.4
== END 2024-12-29 08:31 | disposition home or self-care (01) ==
LOC: HO.HOS 07:59
PROVIDERS: PCP Physician Assistant
DX: M65.4 Radial styloid tenosynovitis [de Quervain] (principal)
CPT/HCPCS: 99213

== ENCOUNTER → 2024-12-29 07:59 | Outpatient (BNVA) | payer BC, SELFPAY | PROVIDERS: PCP Physician Assistant ==

== ENCOUNTER 2024-12-30 06:06 | Outpatient (REF) | payer BC, SELFPAY ==
--- OUTSIDE RECORDS SUMMARY | 2024-12-30 06:09 | XMS_ITS | Patient Health Record ---
Author Organization [facility] Address [address] [place] [address] Care Team Providers Care Correspondence Specialist Name Role Phone Krish Levy Primary Care [...] Problem Status W/U Status Risk Notes Problem [id number] Colon cancer screening (Z12.11) Active confirmed Problem 956222116 Gastroesophageal reflux disease without esophagitis (K21.9) Active confirmed Problem 01039632 Abdominal discom fort (R10.9) Active confirmed Problem 559566689 Gas bloat syndro me (K92.89) Active confirmed [...] Insured Coverage Start Date Coverage End Date [facility] [address] [place] [address] [phone] [id number] DRISS NGUYEN Self - patient is the [...]
[2024-12-30 08:06] LABS: Alanine Aminotransferase 16 U/L (0-31); Albumin Level 3.8 g/dL (3.5-5.0); Alkaline Phosphatase 124 U/L (39-117); Anion Gap 10 (12-20); Aspartate Amino Transferase 21 U/L (5-31); Bilirubin Total 0.3 mg/dL (0.0-1.0); Blood Urea Nitrogen 15 mg/dL (9-16); Calcium 9.1 mg/dL (8.4-10.2); Carbon Dioxide 25 mmol/L (22-29); Chloride 112 mmol/L (96-108); Cholesterol 169 mg/dL (<200); Estimated Glomerular Filt Rate > 60; Glucose Fasting 93 mg/dL (60-99); HDL Cholesterol 58 mg/dL (>40); LDL Cholesterol Calculated 99 mg/dL (<100); Sodium 143 mmol/L (135-145); Total Protein 6.5 g/dL (6.5-8.0); Triglycerides 64 mg/dL (<150)
== END 2024-12-30 06:07 | disposition home or self-care (01) ==
LOC: HO.LAB 06:06
PROVIDERS: PCP Physician Assistant; Visit Provider Physician Assistant
DX: E78.00 Pure hypercholesterolemia, unspecified (principal); I10 Essential (primary) hypertension
CPT/HCPCS: 36415; 80053; 80061; 82043; 82570

== ENCOUNTER 2025-01-04 08:13 | Outpatient (AMB) | payer BC, SELFPAY ==
--- NOTE | 2025-01-04 08:18 | MHC.PC.OV ---
Vital Signs 01/04/25 08:20 Height 5 ft 4 in Weight 178 lb 6 oz BMI 30.6 BP 106/66 Blood Pressure Location Lt brachial Position Sitting Pulse 84 Pulse Source Pulse Oximeter Temp 97.5 F Temp Source Temporal Artery Scan Pulse Oximetry (%) 95 Oxygen Delivery Method Room Air Intake Visit Reasons: 4 month f/u Intake Note: Patient is here to follow up on HTN, Hypothyroidism, Asthma. Community Marketing Coordinator Required: No Quality Control Analyst: Not Required per policy Accompanied by: Self / Same As Patient Allergies coconut oil Allergy (Severe, Verified 01/04/25 08:39) Hives amoxicillin [Amoxicillin] Allergy (Unknown, Verified 01/04/25 08:39) UNKNOWN azithromycin Allergy (Unknown, Verified 01/04/25 08:39) rash penicillin V Allergy (Unknown, Verified 01/04/25 08:39) rash lisinopril Adverse Reaction (Intermediate, Verified 01/04/25 08:39) Cough Medication List - Last Reconciled 01/04/25 by Krish Levy PA-C albuterol sulfate 90 mcg/actuation 1 inh inhalation QID PRN 30 days atorvastatin 20 mg PO DAILY fluticasone propion-salmeterol 250-50 mcg/dose (Wixela Inhub) 1 ea inhalation BID 30 days losartan 50 mg PO DAILY 90 days methimazole 5 mg PO DAILY montelukast 10 mg PO BEDTIME Tobacco use date assessed: 01/04/25 Dental Screening Dental Screen Date: 01/04/25 Did you have a dental visit in the last 12 months?: Yes Did you have a dental problem in the last 6 months where you did not have access to dental care?: No Was dental information given to patient?: Patient has dentist HPI 4 month f/u HPI Details Patient is a 59-year-old female here today for follow-up visit. Patient has a past medical history significant for moderate persistent asthma, hyperthyroidism, hypertension, hyperlipidemia family history of colon cancer. Concern--> currently followed by Orthopedics for left wrist tendon issue, she is due for surgery in February of 2025 to repair a left wrist tendon. .. Asthma: Has been fairly well controlled with current maintenance inhalers. Rarely has accessory shins and does not report any nighttime awakenings with asthma symptoms. .. Class 1 obesity: Patient does understand her BMI is over 30 will work on being more physically active and adapting to better eating habits to reduce her weight .. Hyperthyroidism: Have noticed very low TSH and elevated T3. She is followed by [facility], has been started on methimazole in her hyperthyroid symptoms have resolved.. .. Hyperlipidemia: Patient continues on low to moderate bone see statin without any side effect. Will continue to follow fasting lipid panel with goal LDL to remain below 130 .. Hypertension: Blood pressure acceptable today in office. Has been transitioned to losartan from lisinopril due to an Baltazar related cough. Denies any chest discomfort, dizziness headaches or vision issues. Laboratory Tests 09/18/24 11/11/24 12/04/24 07:37 06:22 06:24 RBC 4.44 Hct 37.3 Creatinine Cholesterol Free T4 0.87 1.08 Urine Microalbumin 12/30/24 12/30/24 06:21 06:24 RBC Hct Creatinine 0.81 Cholesterol 169 Free T4 Urine Microalbumin 6.0 PFSH Medical History Graves disease Elevated LFTs FHx: colon cancer GERD (gastroesophageal reflux disease) Hypertension History of mammogram Anxiety Hypothyroid Hypercholesterolemia Asthma Surgical History History of ankle surgery History of right knee surgery H/O colonoscopy Family History Mother Myocardial infarct, Onset Age: 74 Colon cancer CVD (cardiovascular disease) Sister Colon cancer Paternal Grandmother History of breast cancer Brother DMII (diabetes mellitus, type 2) Social History Housing: Apartment Alcohol intake: current Alcohol type: beer Patient Tobacco Use Status: Never used Tobacco e-Cigarette/Vaping Use: Never Used Second Hand Smoke Exposure: No service: No Current occupational status: employed 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 1. Little interest or pleasure in doing things: not at all 2. Feeling down, depressed, or hopeless: not at all 3. Trouble falling or staying asleep, or sleeping too much: not at all 4. Feeling tired or having little energy: not at all 5. Poor appetite or overeating: not at all 6. Feeling bad about yourself - or that you are a failure or have let yourself or your family down: not at all 7. Trouble concentrating on things, such as reading the newspaper or watching television: not at all 8. Moving or speaking so slowly that other people could have noticed. Or the opposite - being so fidgety or restless that you have been moving around a lot more than usual: not at all 9. Thoughts that you would be better off or of hurting yourself in some way: not at all Total score: 0 Depression Screening Interpretation: Negative Depression Screening Done: Yes 35962 - PHQ-9 Billing: Yes Source: Developed by Drs. Chavez Hawk, Mary Ellen Mayes, Odell Crowe and colleagues, with an educational tamar from [employer]. Thrive Questionnaire Date Thrive assessed: 01/04/25 I am a: Patient What is your living situation today?: I choose not to answer this question Within the past 12 months, did the food you bought not last and you didn't have the money to get more?: I choose not to answer this question Within the past 12 months, did you worry whether your food would run out before you got money to buy more?: I choose not to answer this question Do you have trouble paying for medicines?: I choose not to answer this question Do you have trouble getting transportation to medical appointments?: I choose not to answer this question Do you have trouble paying your heating and electricity bill?: I choose not to answer this question Do you have trouble taking care of your child, family member or friend?: I choose not to answer this question Do you have trouble with day-to-day activities such as bathing, preparing meals, shopping, managing finances, etc.?: I choose not to answer this question Are you currently unemployed and looking for a job?: I choose not to answer this question Are you interested in more education?: I choose not to answer this question Please select the resources that you would like help with: None Currently or been in a relationship where the following occur: I choose not to answer THRIVE Score: 0 AUDIT C Alcohol Use Questionnaire (AUDIT-C) 1. How often do you have a drink containing alcohol?: Monthly or less 2. How many drinks containing alcohol do you have on a typical day when you are drinking?: 1 or 2 Total Score: 1 SEPIDEH-7 AMB Questionnaire SEPIDEH-7 Date SEPIDEH - 7 assessed: 01/04/25 Feeling nervous, anxious, or on edge: 0 = Not at all Not being able to stop or control worryin = Not at all Worrying too much about different things: 0 = Not at all Trouble relaxin = Not at all Being so restless that it is hard to sit still: 0 = Not at all Becoming easily annoyed or irritable: 0 = Not at all Feeling afraid as if something awful might happen: 0 = Not at all Total SEPIDEH-7 score (0-4 normal; 5-9 mild; 10-14 moderate; 15-21 severe): 0 Source: Developed by Drs. Chavez Hawk, Mary Ellen Mayes, Odell Crowe and colleagues, with an educational tamar from [employer]. SEPIDEH-7 Assessment Billing SEPIDEH-7 Assessment Tool: SEPIDEH-7 Assessment 10057 Physical exam (Primary Care) Vital Signs: Last Vital Signs Temp 97.5 F 01/04/25 08:20 Pulse 84 01/04/25 08:20 BP 106/66 01/04/25 08:20 Pulse Ox 95 01/04/25 08:20 Oxygen Delivery Method Room Air 01/04/25 08:20 BMI result Body Mass Index 30.6 BMI Assessment/Plan discussion: High BMI High, discussed plan: lifestyle, weight reduction, dietary and physical activity Tobacco/Smoking Status: Tobacco use Status Tobacco use date assessed 01/04/25 01/04/25 08:26 Patient Tobacco Use Status Never used Tobacco 01/04/25 08:26 e-Cigarette/Vaping Use Never Used 01/04/25 08:26 PHQ-9: PHQ-9 Score PHQ-9: Total score 0 01/04/25 08:26 Depression Screening Interpretation: Negative Thrive Assessment: Date of Thrive Assessment Date Thrive assessed 01/04/25 01/04/25 08:26 Currently or been in a relationship where the following occur: I choose not to answer Coding Level of Care Code Est Pt Level 4 (22574) Diagnoses Hyperthyroidism E05.90 Mild persistent asthma without complication J45.30 Asthma severity: mild Asthma persistence: persistent Asthma complication type: uncomplicated Hypercholesterolemia E78.00 Essential (primary) hypertension I10 De Quervain's tenosynovitis, left M65.4 Additional Codes PHQ-9 - 89869 - PHQ-9 Billing: Yes ([id number]) SEPIDEH-7 Assessment Billing - SEPIDEH-7 Assessment Tool: SEPIDEH-7 Assessment 98975 ([id number]) Assessment & Plan Assessment & Plan (1) Hyperthyroidism: Code(s): E05.90 - Thyrotoxicosis, unspecified without thyrotoxic crisis or storm Category: Medical Plan: Patient now followed by [facility]. Her methimazole has been reduced to 5 mg, her hyperthyroid symptoms have resolved. She reports she feels well. She will continue her follow-up with endocrinology. (2) Asthma: Code(s): J45.909 - Unspecified asthma, uncomplicated Category: Medical Qualifiers: Asthma severity: mild Asthma persistence: persistent Asthma complication type: uncomplicated Qualified Code(s): J45.30 - Mild persistent asthma, uncomplicated Plan: Patient reports her asthma has been fairly well controlled with p.r.n. use of her albuterol inhaler and daily use of her maintenance inhaler. No recent asthma exacerbations or nighttime awakenings with asthma symptoms. (3) Hypercholesterolemia: Code(s): E78.00 - Pure hypercholesterolemia, unspecified Category: Medical Plan: Most recent lipid panel acceptable. She will continue with atorvastatin 20 mg. Goal LDL to remain below 130 (4) Essential (primary) hypertension: Code(s): I10 - Essential (primary) hypertension Category: Medical Plan: Patient's blood pressure acceptable today in office. She continues on losartan 50 mg with good effect on her blood pressure. Goal blood pressure to remain below 140/90 (5) De Quervain's tenosynovitis, left: Code(s): M65.4 - Radial styloid tenosynovitis [de Quervain] Category: Medical Plan: Patient followed by [facility], she is due for left wrist tendon surgery in February of 2025. Orders: Orders Lipid Panel Today E78.00 - Pure hypercholesterolemia, unspecified Complete Blood Count no Diff Today I10 - Essential (primary) hypertension Comprehensive [place]. Panel Fast Today I10 - Essential (primary) hypertension TSH reflex Free T4 Today E03.9 - Hypothyroidism, unspecified
[2025-01-04 08:20] VITALS: BP 106/66; PULSE 84; TEMP 36.4; O2SAT 95; BMI 30.6
--- OUTSIDE RECORDS SUMMARY | 2025-01-04 08:34 | XMS_ITS | Patient Health Record ---
Author Organization [facility] Address [address] [place] [address] Care Team Providers Care Supervisor Pipelines Name Role Phone Krish Levy Primary Care [...] Problem Status W/U Status Risk Notes Problem 352448309 Colon cancer screening (Z12.11) Active confirmed Problem 151432570 Gastroesophageal reflux disease without esophagitis (K21.9) Active confirmed Problem 43742821 Abdominal discom fort (R10.9) Active confirmed Problem 644037856 Gas bloat syndro me (K92.89) Active confirmed [...] Insured Coverage Start Date Coverage End Date [facility] [address] [place] [address] [phone] [id number] DRISS NGUYEN Self - patient is the [...]
== END 2025-01-04 08:50 | disposition home or self-care (01) ==
LOC: HO.HMCH 08:13
PROVIDERS: PCP Physician Assistant; Visit Provider Physician Assistant
DX: E05.90 Thyrotoxicosis, unspecified without thyrotoxic crisis or storm (principal); J45.30 Mild persistent asthma, uncomplicated; E78.00 Pure hypercholesterolemia, unspecified; I10 Essential (primary) hypertension; M65.4 Radial styloid tenosynovitis [de Quervain]

== ENCOUNTER → 2025-01-04 08:13 | Outpatient (BNVA) | payer BC, SELFPAY | PROVIDERS: PCP Physician Assistant; Visit Provider Physician Assistant | DX: E05.90 Thyrotoxicosis, unspecified without thyrotoxic crisis or storm (principal); J45.30 Mild persistent asthma, uncomplicated; E78.00 Pure hypercholesterolemia, unspecified; I10 Essential (primary) hypertension; M65.4 Radial styloid tenosynovitis [de Quervain]; Z79.899 Other long term (current) drug therapy | CPT/HCPCS: 96127 ==

== ENCOUNTER 2025-01-14 13:05 | Outpatient (REF) | payer BC, SELFPAY ==
--- NOTE | ~2025-01-14 | US_ITS ---
EXAMINATION: MM DIAGNOSTIC DIGITAL BREAST TOMOSYNTHESIS, RIGHT Limited right breast ultrasound. CLINICAL INFORMATION: Call back from screening for right asymmetry retroareolar region on CC view. COMPARISON: Mammography: [facility] on PACS. TECHNIQUE: Digital breast tomosynthesis is performed in both the craniocaudal and mediolateral oblique views along with computer-aided detection (CAD). Synthesized 2D images are generated from the tomosynthesis. FINDINGS: There are scattered areas of fibroglandular density (ACR BI-RADS breast composition Category b). Asymmetry in the retroareolar region and CC views anterior to middle depth persist on additional imaging projections. No suspicious calcifications or other abnormal findings. Targeted color Doppler ultrasound scanning at 12:00 and in the retroareolar region demonstrates oval hypoechoic parallel solid mass versus complicated cyst at 12:00 2 cm from the nipple measuring 7 x 4 x 5 mm which correlates with the mammographic asymmetry and is probably benign. US/US breast RT limited mamm only IMPRESSION: Solid mass versus complicated cyst in the right breast at 12:00 2 cm from the nipple. Recommend 6 month follow-up for further evaluation of stability. The findings and recommendations were discussed with the patient. This area is amenable to ultrasound-guided core needle biopsy if the patient prefers. ASSESSMENT: BI-RADS BI-RADS 3 - Probably benign finding(s) - 6 month follow-up suggested RECOMMENDATION: 6 Month F/U Results were provided to the patient at time of visit by the technologist. This patient's information was entered into a reminder system with a target due date for their next mammogram. Electronically signed by: Ny Williamson DO 01/14/2025 02:27 PM EDT
== END 2025-01-14 13:06 | disposition home or self-care (01) ==
LOC: HO.MAMMO 13:05
PROVIDERS: PCP Physician Assistant; Visit Provider Physician Assistant
DX: N64.89 Other specified disorders of breast (principal)
CPT/HCPCS: 76642; 77061; 77065

== ENCOUNTER → 2025-01-14 13:30 | Outpatient (BNV) | payer BC, SELFPAY | PROVIDERS: PCP Physician Assistant; Visit Provider Internal Medicine | DX: N63.15 Unspecified lump in the right breast, overlapping quadrants (principal) | CPT/HCPCS: 76642; 77061; 77065 ==

== ENCOUNTER 2025-02-22 07:12 | Day surgery (SDC) | payer BC, SELFPAY ==
[2025-02-22 07:44] VITALS: BP 144/48; PULSE 100; RESP 12; TEMP 36.6; O2SAT 97
--- NOTE | 2025-02-22 09:14 | P.OP_ITS ---
Operative Note Operative Note Date of Service: 02/22/25 Narrative: Operative Note Preop diagnosis: 1. Left DeQuervain's tenosynovitis Postop diagnosis: 1. Left DeQuervain's tenosynovitis Procedure: 1. Left 1st dorsal compartment release Surgeon: Julia Clark MD Patternmaker Metal: None Anesthesia: local block using 1% lidocaine with epinephrine Findings: Thickened 1st dorsal compartment. EPB tendon in separate compartment EBL: Less than 5 mL Tourniquet time: None Specimens: None Complications: None Disposition: Brought to recovery room in stable condition Plan: Follow-up for 7-10 days for wound check and suture removal Indications: The patient is 59 years old, with left DeQuervain's tenosynovitis that has been unresponsive to nonoperative management. The risks and benefits of operative treatment including but not limited to risk of damage to blood vessels, nerves, tendons, infection, persistent pain, persistent symptoms, recurrence or possible need for additional surgery were discussed with the patient and the patient wishes to proceed with surgery. Procedure: Once consent was obtained a local block was performed in the preop area using a combination of 1% lidocaine with epinephrine. The patient was then brought back to the operating suite and placed on the operative table in supine position. The left upper extremity was prepped and draped in a standard surgical fashion. Once assured that we had a good block, a 1.5 cm longitudinal incision was made centered over the 1st dorsal compartment as it passed over the radial styloid of the left wrist. The incision was made through the skin to the subcutaneous tissues using a #15 blade. Careful dissection was made down to the level of the 1st dorsal compartment using tenotomy scissors, with care being taken to protect the nearby branches of the superficial radial nerve. Once the 1st dorsal compartment was exposed, A longitudinal incision was made in the 1st dorsal compartment 1st using a #15 blade, then using tenotomy scissors under direct visualization. The 1st dorsal compartment was noted to be thickened. The extensor pollicis brevis tendon was also noted to be in a 2nd compartment. This tendon was also released longitudinally and under direct visualization. Following our release, we saw smooth gliding abductor pollicis longus and extensor pollicis brevis tendons. Once satisfied with our 1st dorsal compartment release the wound was copiously irrigated with normal saline and hemostasis was obtained with a brief period of local pressure. The subcutaneous layer was closed with some 4-0 Vicryl suture, and the skin edges were reapproximated with some 5.0 nylon suture material. A sterile dressing was applied. The patient appears to have tolerated the procedure well and with no complications. All digits were well vascularized at the conclusion of the case.
--- NOTE | 2025-02-22 09:14 | MHC.SHP ---
Pre-Procedural Eval Section A - 24 Hr Update-Section A only Date of Service: 02/22/25 The patient is an INPATIENT: No Changes since office visit: No Cold of Flu in the past 2 weeks, No New Medical Problems, No Changes in Medication and No Patient answered all questions The patient has been examined within 24 hours of the surgical procedure. The History & Physical has been completed within 30 days and I have reviewed it.: Yes Section B - Complete if H&P > 30 days Chief Complaint: Radial styloid tenosynovitis [de Quervain] Allergies: Allergies Allergy/AdvReac Type Severity Reaction Status Date / Time coconut oil Allergy Severe Hives Verified 02/22/25 07:42 amoxicillin [Amoxicillin] Allergy Unknown UNKNOWN Verified 02/22/25 07:42 azithromycin Allergy Unknown rash Verified 02/22/25 07:42 penicillin V Allergy Unknown rash Verified 02/22/25 07:42 lisinopril AdvReac Intermediate Cough Verified 02/22/25 07:42 Plan Diagnosis/Plan: Unchanged I have reviewed the history and physical and performed a pertinent physical examination on my patient. No changes have occurred unless specified. Time Spent With Patient Time: Total time managing care of this patient today ____ minutes.
[2025-02-22 10:16] VITALS: BP 141/74; PULSE 85; RESP 16; O2SAT 97
== END 2025-02-22 10:17 | disposition home or self-care (01) ==
PROVIDERS: PCP Physician Assistant; Visit Provider Orthopaedic Surgery
PROC: (CPT 25000; principal; 2025-02-22 08:30)
DX: M65.4 Radial styloid tenosynovitis [de Quervain] (principal); I10 Essential (primary) hypertension; J45.909 Unspecified asthma, uncomplicated; E05.00 Thyrotoxicosis with diffuse goiter without thyrotoxic crisis or storm; E03.9 Hypothyroidism, unspecified; R79.89 Other specified abnormal findings of blood chemistry; E78.00 Pure hypercholesterolemia, unspecified; Z88.0 Allergy status to penicillin; Z88.1 Allergy status to other antibiotic agents; Z88.8 Allergy status to other drugs, medicaments and biological substances; Z98.890 Other specified postprocedural states
CPT/HCPCS: 25000; J0171; J2003; J2004

== ENCOUNTER → 2025-02-22 07:12 | Outpatient (BNV) | payer BC, SELFPAY | PROVIDERS: PCP Physician Assistant; Visit Provider Orthopaedic Surgery | DX: M65.4 Radial styloid tenosynovitis [de Quervain] (principal) | CPT/HCPCS: 25000 ==

== ENCOUNTER 2025-02-25 06:06 | Outpatient (REF) | payer BC, SELFPAY ==
--- OUTSIDE RECORDS SUMMARY | 2025-02-25 06:09 | XMS_ITS | Patient Health Record ---
Author Organization [facility] Address [address] [place] [address] Care Team Providers Care Rehab Director Occupational Therapist Name Role Phone Krish Levy Primary Care [...] Problem Status W/U Status Risk Notes Problem 112414958 Colon cancer screening (Z12.11) Active confirmed Problem 745465086 Gastroesophageal reflux disease without esophagitis (K21.9) Active confirmed Problem 68612233 Abdominal discom fort (R10.9) Active confirmed Problem 796296134 Gas bloat syndro me (K92.89) Active confirmed [...] Insured Coverage Start Date Coverage End Date [facility] [address] [place] [address] [phone] [id number] DRISS NGUYEN Self - patient is the [...]
[2025-02-25 08:16] LABS: Free T4 (Free Thyroxine) 1.01 ng/dL (0.71-1.85); Thyroid Stimulating Hormone 5.56 uIU/mL (0.32-4.0)
[2025-02-26 06:58] LABS: Triiodothyronine T3 Total 97 ng/dL (76-181)
== END 2025-02-25 06:07 | disposition home or self-care (01) ==
LOC: HO.LAB 06:06
PROVIDERS: PCP Physician Assistant; Visit Provider Student in an Organized Health Care Education/Training Program
DX: E05.00 Thyrotoxicosis with diffuse goiter without thyrotoxic crisis or storm (principal)
CPT/HCPCS: 36415; 84439; 84443; 84480

== ENCOUNTER 2025-03-09 14:06 | Outpatient (AMB) | payer BC, SELFPAY ==
--- NOTE | 2025-03-09 14:45 | MHC.OFFVIS ---
Vital Signs 03/09/25 14:47 Height 5 ft 4 in Weight 178 lb BMI 30.6 Handedness Right Intake Visit Reasons: PO LT RETIREMENT release 02/22/25 AR Intake Note: Leia is a 59 year old right hand dominant female who presents today for a post operative visit status post left 1st dorsal compartment release DOS: 02/22/[address] Julia Clark. Patient reports she has had a sore thumb these past 3 days. Denies numbness and tingling. Denies any discharge. Sutures removed and steri strips. Allergies coconut oil Allergy (Severe, Verified 03/09/25 14:47) Hives amoxicillin (Amoxicillin) Allergy (Unknown, Verified 03/09/25 14:47) UNKNOWN azithromycin Allergy (Unknown, Verified 03/09/25 14:47) rash penicillin V Allergy (Unknown, Verified 03/09/25 14:47) rash lisinopril Adverse Reaction (Intermediate, Verified 03/09/25 14:47) Cough HPI HPI PO LT RETIREMENT release 02/22/25 AR: Details: Leia is a 59 year old right hand dominant female who presents today for a post operative visit status post left 1st dorsal compartment release DOS: 02/22/[address] Julia Clark. Patient reports she has had a sore thumb these past 3 days. Patient reports pain has improved significantly from prior to surgery. Denies numbness and tingling. Denies any discharge. Sutures removed and steri strips. PENDING SALE TO [facility] Medical History Graves disease Elevated LFTs FHx: colon cancer GERD (gastroesophageal reflux disease) Hypertension History of mammogram Anxiety Hypothyroid Hypercholesterolemia Asthma Surgical History History of ankle surgery History of right knee surgery H/O colonoscopy Family History Mother Myocardial infarct, Onset Age: 74 Colon cancer CVD (cardiovascular disease) Sister Colon cancer Paternal Grandmother History of breast cancer Brother DMII (diabetes mellitus, type 2) Social History Housing: Apartment Alcohol intake: current Alcohol type: beer Patient Tobacco Use Status: Never used Tobacco e-Cigarette/Vaping Use: Never Used Second Hand Smoke Exposure: No service: No Current occupational status: employed 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 Neuro: Normal sensation of the tips of all digits of the left hand at this time Vascular: Cap refill brisk Pain: No Tenderness to palpation of the left radial styloid No tenderness to palpation of the ulnar styloid, DRUJ, or elsewhere in the left hand or wrist Greatly improved Kristian on the left ROM: Patient is able to make a closed fist and extend all digits of the left hand fully and without difficulty Skin: Well Approximated and well healing incision site over the 1st dorsal compartment of the left wrist No lacerations or abrasions. General: No ecchymosis, erythema, or evidence of infection. Psych: Appears grossly normal Affect normal Attitude cooperative Assessment & Plan Assessment & Plan (1) De Quervain's tenosynovitis, left: Code(s): M65.4 - Radial styloid tenosynovitis [de Quervain] Category: Medical Plan 1. Status post left 1st dorsal compartment release DOS 02/22/2025 Patient appears to be recovering well postoperatively Patient is educated about the typical recovery course At this time, patient is offered referral to occupational therapy, but declines, stating that she can do exercises at home Patient is also educated she should continue to wear her comfort cool brace with daytime activities when her wrist and thumb are bothering her Patient is amenable to this plan Follow-up in 4-6 weeks for reassessment, sooner with any acute concerns Coding Level of Care Code Global (49382) Diagnoses De Quervain's tenosynovitis, left M65.4
[2025-03-09 14:47] VITALS: BMI 30.6
--- OUTSIDE RECORDS SUMMARY | 2025-03-09 16:16 | XMS_ITS | Patient Health Record ---
Author Organization [facility] Address [address] [place] [address] Care Team Providers Care Computational Theory Scientist Name Role Phone Krish Levy Primary Care Provider Fredy John Jr Unavailable [phone] Allergies Allergen (clinical drug ingredient) Drug/Non Drug [...] Problem Status W/U Status Risk Notes Problem 172546195 Colon cancer screening (Z12.11) Active confirmed Problem 547297239 Gastroesophageal reflux disease without esophagitis (K21.9) Active confirmed Problem 15430328 Abdominal discom fort (R10.9) Active confirmed Problem 498619893 Gas bloat syndro me (K92.89) Active confirmed [...] Insured Coverage Start Date Coverage End Date [facility] [address] [place] [address] [id number] DRISS NGUYEN Self - patient is the [...]
== END 2025-03-09 15:30 | disposition home or self-care (01) ==
LOC: HO.HOS 14:07
PROVIDERS: PCP Physician Assistant
DX: M65.4 Radial styloid tenosynovitis [de Quervain] (principal)
CPT/HCPCS: 99024

== ENCOUNTER → 2025-03-09 14:06 | Outpatient (BNVA) | payer BC, SELFPAY | PROVIDERS: PCP Physician Assistant ==

== ENCOUNTER 2025-04-06 07:53 | Outpatient (AMB) | payer BC, SELFPAY ==
--- OUTSIDE RECORDS SUMMARY | 2025-04-06 07:56 | XMS_ITS | Patient Health Record ---
Author Organization [facility] Address [address] [place] [address] Care Team Providers Care Market Manager Name Role Phone Krish Levy Primary Care Provider Fredy John Jr Unavailable [phone] Allergies Allergen (clinical drug ingredient) Drug/Non [...] Problem Status W/U Status Risk Notes Problem 360788941 Colon cancer screening (Z12.11) Active confirmed Problem 014185588 Gastroesophageal reflux disease without esophagitis (K21.9) Active confirmed Problem 07077173 Abdominal discom fort (R10.9) Active confirmed Problem 410751490 Gas bloat syndro me (K92.89) Active confirmed [...] Insured Coverage Start Date Coverage End Date [facility] [address] [place] [address] [phone] [id number] DRISS NGUYEN Self - patient is the [...]
--- OUTSIDE RECORDS SUMMARY | 2025-04-06 07:56 | XMS_ITS | Patient Health Record ---
[facility] [place] Address [address] [place] [address] Care Team Providers Care Centrifugal Wax Molder Name Role Phone Geena Cespedes MD Primary Care Provider Jevon Coleman Unavailable [phone] Allergies Allergen (clinical drug ingredient) Drug/Non Drug Allergy documented on EMR Reaction Allergy Type Onset Date Status amoxicillin Amoxicillin rash Drug Allergy Act merry Azithromycin rash Drug Allergy Acti ve erythromycin Erythromycin rash Drug Allergy A ctive Penicillin rash Drug Allergy Active Latex rash Drug Allergy Active Reason For Referral No Information Medications Medication SIG (Take, Route, Frequency, Duration) Notes Start Date End Date Status Atorvastatin Calcium Active Walking Boot/Pneumatic As directed Wear Daily; Duration: Until further notice 01/09/2019 Active Feldene 20 MG 1 capsule with food Orally Once a day; Duration: 30 day(s) Active Vitamin D 1000 UNIT Orally Active Cetirizine HCl Activ e LORazepam 0.5 MG Orally Act merry Montelukast Sodium 10 MG Orally Once a day Active Lisinopril 20 MG Orally Once a day Active Levothyroxine Sodium 25 MCG Orally Active Lovastatin 20 MG Orally Once a day Not-Taking Medrol 4 MG as directed Orally 11/12/2018 Not-Taking Social History Tobacco Use: Social History Observation Description Date Details (start date - stop date) Never Smoker NA - NA Tobacco Use/Smoking Question Answer Notes Are you a: nonsmoker Additional Findings: Tobacco Non-User Current no n-smoker Alcohol Screen Question Answer Notes Did you have a drink containing alcohol in the p ast year? Yes Points 0 Interpretation Negative Tobacco use other than smoking: Question Answer Notes Are you an other tobacco user? 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 Plan Of Treatment Pending Test Test Name Order Date X ray : Ankle, left 3V 10/07/2018 X ray : Foot, left 2V 10/07/2018 X ray : Foot, left 3V 11/12/2018 [id number] TENDON SHEATH/LIGAMENT 0 01/09/2019 Insurance Providers Payer Name Payer Address Payer Phone Subscriber Number Group Number Insured Name Patient Relationship to Insured Coverage Start Date Coverage End Date [facility] [address] [place] [phone] [id number] Leia Dennison Self - patient is the insured Medical (General) History Medical History History ICD Code Anxiety disorder asthma Back,Hip,and Knee pain Hypertension Sciatica chronic sinusitis Thyroid disorder Surgical History Surgery Date(Month/Year) knee, meniscus 2004 knee arthroscopy 2002 knee surgery 2005
[2025-04-06 08:03] VITALS: BMI 30.6
--- NOTE | 2025-04-06 08:03 | A.OFFVIS_ITS ---
Vital Signs 04/06/25 08:03 Height 5 ft 4 in Weight 178 lb BMI 30.6 Intake Visit Reasons: PO LT [facility] release 02/22/25 AR Intake Note: Leia is a 59 year old right hand dominant female who presents today for a post operative visit status post Left 1st dorsal compartment release DOS: 02/22/25. At her last visit she Declined OT and was instructed to wear her comfort cool brace for daytime activities. Patient reports that she is having continued pain in the thumb, this pain is worsened with pushing activities and occasional shooting pain up through the tip of the thumb. Denies numbness. Allergies coconut oil Allergy (Severe, Verified 04/06/25 08:06) Hives amoxicillin (Amoxicillin) Allergy (Unknown, Verified 04/06/25 08:06) UNKNOWN azithromycin Allergy (Unknown, Verified 04/06/25 08:06) rash penicillin V Allergy (Unknown, Verified 04/06/25 08:06) rash lisinopril Adverse Reaction (Intermediate, Verified 04/06/25 08:06) Cough PFSH Medical History Graves disease Elevated LFTs FHx: colon cancer GERD (gastroesophageal reflux disease) Hypertension History of mammogram Anxiety Hypothyroid Hypercholesterolemia Asthma Surgical History History of ankle surgery History of right knee surgery H/O colonoscopy Family History Mother Myocardial infarct, Onset Age: 74 Colon cancer CVD (cardiovascular disease) Sister Colon cancer Paternal Grandmother History of breast cancer Brother DMII (diabetes mellitus, type 2) Social History Housing: Apartment Alcohol intake: current Alcohol type: beer Patient Tobacco Use Status: Never used Tobacco e-Cigarette/Vaping Use: Never Used Second Hand Smoke Exposure: No service: No Current occupational status: employed 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 Neuro: Normal sensation of the tips of all digits of the left hand at this time Vascular: Cap refill brisk Pain: No Tenderness to palpation of the left radial styloid No tenderness to palpation of the ulnar styloid, DRUJ, or elsewhere in the left hand or wrist Greatly improved Kristian on the left ROM: Patient is able to make a closed fist and extend all digits of the left hand fully and without difficulty Skin: Well Approximated and well healing incision site over the 1st dorsal compartment of the left wrist No lacerations or abrasions. General: No ecchymosis, erythema, or evidence of infection. Psych: Appears grossly normal Affect normal Attitude cooperative Assessment & Plan Assessment & Plan (1) De Quervain's tenosynovitis, left: Code(s): M65.4 - Radial styloid tenosynovitis [de Quervain] Category: Medical Plan 1. Status post left 1st dorsal compartment release DOS 02/22/2025 Patient appears to be recovering well postoperatively Patient is educated about the typical recovery course At this time, patient is offered referral to occupational therapy, which she accepts Patient is also educated she should continue to wear her comfort cool brace with daytime activities when her wrist and thumb are bothering her As patient appears to be still having significant discomfort with lifting, and her job does not have any light duty and involves frequently moving heavy objects such as furniture, I feel it is best for the patient to be out of work until follow-up Patient is amenable to this plan Follow-up in 4 weeks for reassessment, sooner with any acute concerns Orders: Orders OT Evaluation and Treatment Today M65.4 - Radial styloid tenosynovitis [de Quervain] Coding Level of Care Code Global (19737) Diagnoses De Quervain's tenosynovitis, left M65.4
== END 2025-04-06 08:29 | disposition home or self-care (01) ==
LOC: HO.HOS 07:54
PROVIDERS: PCP Physician Assistant
DX: M65.4 Radial styloid tenosynovitis [de Quervain] (principal)
CPT/HCPCS: 99024

== ENCOUNTER 2025-04-15 08:00 | Outpatient (RCR) | payer BC, SELFPAY ==
--- NOTE | 2025-04-09 13:22 | MHC.OT.OEV ---
[address] [phone] F: [phone] Occupational Therapy Evaluation Patient Name: Leia Dennison Diagnosis: (L) De Quervain's Release Date of Onset: Date of Surgery: 02/22/25 Attending Provider: Pasquale Mcintosh Prescribed Treatment: Follow Up Appointment: History of Current Condition: Patient is a 59 y/o (R)handed female who is s/p 6 weeks (L)De Quervain's release. She reports 0/10 pain at rest and 5/10 pain during movement. She will have sharp/ shooting pain occasionally and also has dull aching pain. She has a comfort cool brace for daytime activities. 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 She lives alone in a 2nd floor apartment of a house. She enjoys bowling and walks. She stated she will be returning to work in 3 weeks. Significant Medical History: Graves disease Elevated LFTs FHx: colon cancer GERD (gastroesophageal reflux disease) Hypertension History of mammogram Anxiety Hypercholesterolemia Asthma Precautions/Contraindications: wear comfort cool brace for daytime activities. 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 (I)ADLs/IADLs Living Situation, Family and/or Social Support: Lives alone is friends with her neighbors Current Level of Function and Occupation Self Care, Employment, Leisure: Out on medical leave min (A)ADLs/IADLS Sleep: Sleeps through the night Driving: Difficulty with turning and pushing the door out Vision: Balance: Pain Assessment Pain Score: Pain Scale Used: Pain Location and Description: 0/10 at rest 5/10 pain during activity Aggravating Factors: Alleviating Factors: Ibuprofen, ice Skin and Soft Tissue Assessment Skin and Soft Tissue: Comments: Scar on radial side of wrist- no s/s of infection Nerve assessment Ulnar Nerve: Median Nerve: Radial Nerve: Comments: Sensory Assessment Temperature: Light Touch: Proprioception: Vibration: Comments: Edema Assessment Upper Extremity: Lower Extremity: Comments: Dexterity Assessment Dexterity: Comments: Special Tests Comments: AROM(PROM) Strength Cervical Cervical Flexion: Cervical Extension: Cervical Lateral Flexion: Cervical Rotation: Comments: Shoulder Flexion: Extension: Abduction: Internal Rotation: External Rotation: Comments: WFL Flexion: Extension: Abduction: Internal Rotation: External Rotation: Comments: WFL Elbow Flexion: Extension: Pronation: WFL Supination: WFL Comments: WFL Flexion: Extension: Pronation: Supination: Comments: Wrist Flexion: 66 Extension: 52 Ulnar Deviation: 12 Radial Deviation: 20 Comments: Flexion: Extension: Ulnar Deviation: Radial Deviation: Comments: Thumb Thumb CMC Flexion: Thumb MCP Flexion: 50 Thumb IP Flexion: 54 Radial Abduction: 32 Palmar Abduction: Hamburg (Kapandji 0-10): 10 Comments: Digits Index MCP: PIP: DIP: Long MCP: PIP: DIP: Ring MCP: PIP: DIP: Small MCP: PIP: DIP: Comments: WFL Gross Grasp: 50lbs. (R) Lateral Pinch: Two-Point Pinch: Three-Jaw Rex: Comments: (L)not tested will test at later date Patient Education Primary Language: [employer] Sales Manager Required: No Current Knowledge: Understands information with skills for self-management Teaching Method: Verbal Education Needs Identified on Evaluation: ADL's Equipment Use Exercise Pain How did patient/family demonstrate learning? Patient demonstrates Patient verbalizes Barriers to Learning: None Readiness for Learning: Accepting Who was educated? Patient Comments: Plan of Care Assessment: Patient is s/p 6 weeks 1st compartment release who presents with pain, impaired ROM, impaired strength and impaired performance during self care tasks. Quick DASH= 56.8% indicating patient's perceived impairment of UE performance during self care tasks. Due to the documented impairment it is recommended that patient receive skilled OT in order to achieve her PLOF of (I). Thank you for your referral. STG Duration: 2 weeks Short Term Goals: Patient will decrease pain in (L)wrist to 5/10 pain during self care tasks Patient will be (I) with scar massage Patient will increase (L)wrist extension to 60* Patient will (L) thumb abduction to 50* LTG Duration: 4 weeks Detention Goals: Patient will decrease pain in (L)wrist to 1/10 Patient will have increase (L)wrist extension to 70* Patient will be (I) with HEP Patient will decrease Quick DASH score to 30% or less Frequency and Duration: The patient will be seen 2x a week for 4 weeks Treatment Plan: Therapeutic Exercise Therapeutic Activity Home Exercise Program Splinting Neuro Re-ed Patient Education Desensitization/Sensory Re-ed Edema Control ADL Training Ultrasound NMES Iontophoresis Paraffin Fluidotherapy MHP Cold Packs Joint Mobilization Soft Tissue Mobilization Kinesiotaping Other (see comments) Skilled OT eval and treat Electronically Signed By: Kathi Lopez OTR/L, CLT Reviewed/agree with student documentation: Therapist: Please sign and return to therapist, Thank you for your referral.
== END 2025-08-10 08:34 | disposition home or self-care (01) ==
LOC: HO.OT 08:00
PROVIDERS: PCP Physician Assistant
DX: M65.4 Radial styloid tenosynovitis [de Quervain] (principal)
CPT/HCPCS: 97035; 97110; 97140; 97165

== ENCOUNTER 2025-04-19 06:50 | Outpatient (REF) | payer BC, SELFPAY ==
[2025-04-19 08:22] LABS: Free T4 (Free Thyroxine) 1.21 ng/dL (0.71-1.85); Thyroid Stimulating Hormone 1.53 uIU/mL (0.32-4.0)
== END 2025-04-19 06:51 | disposition home or self-care (01) ==
LOC: HO.LAB 06:50
PROVIDERS: PCP Physician Assistant; Visit Provider Student in an Organized Health Care Education/Training Program
DX: E05.00 Thyrotoxicosis with diffuse goiter without thyrotoxic crisis or storm (principal); E03.9 Hypothyroidism, unspecified
CPT/HCPCS: 36415; 84439; 84443

== ENCOUNTER 2025-05-10 14:26 | Outpatient (AMB) | payer BC, SELFPAY ==
--- OUTSIDE RECORDS SUMMARY | 2025-05-10 15:08 | XMS_ITS | Patient Health Record ---
Author Organization [facility] Address [address] [place] [address] Care Team Providers Care Child Attendant Name Role Phone Krish Levy Primary Care Provider Fredy John Jr Unavailable [phone] Allergies Allergen (clinical drug ingredient) Drug/Non [...] Problem Status W/U Status Risk Notes Problem [id number] Colon cancer screening (Z12.11) Active confirmed Problem 012288445 Gastroesophageal reflux disease without esophagitis (K21.9) Active confirmed Problem 43794573 Abdominal discom fort (R10.9) Active confirmed Problem 968171868 Gas bloat syndro me (K92.89) Active confirmed [...] Insured Coverage Start Date Coverage End Date [facility] [address] [place] [address] [id number] DRISS NGUYEN Self - patient is the [...]
--- OUTSIDE RECORDS SUMMARY | 2025-05-10 15:08 | XMS_ITS | Patient Health Record ---
Author Organization [facility] [place] Address [address] [place] [address] Care Team Providers Care Abstract Checker Name Role Phone Geena Cespedes MD Primary Care Provider Jevon Coleman Unavailable [phone] Allergies Allergen (clinical drug ingredient) Drug/Non Drug Allergy documented on EMR Reaction Allergy Type Onset Date Status amoxicillin Amoxicillin rash Drug Allergy Act merry azithromycin Azithromycin rash Drug Allergy A ctive erythromycin Erythromycin rash Drug Allergy A ctive [...] X ray : Foot, left 3V 11/12/2018 [id number] TENDON SHEATH/LIGAMENT 0 01/09/2019 Insurance Providers Payer Name Payer Address Payer Phone Subscriber Number Group Number Insured Name Patient Relationship to Insured Coverage Start Date [facility] End Date [facility] [address] [place] [phone] [id number] Leia Dennison Self - patient is the insured Medical (General) History Medical History History ICD Code Anxiety disorder asthma Back,Hip,and Knee pain Hypertension Sciatica chronic sinusitis Thyroid disorder Surgical History Surgery Date(Month/Year) knee, meniscus 2004 knee arthroscopy 2002 knee surgery 2005
== END 2025-05-10 14:30 | disposition home or self-care (01) ==
LOC: HO.HMGAL 14:26
PROVIDERS: PCP Physician Assistant; Visit Provider Registered Nurse Emergency
DX: J30.89 Other allergic rhinitis (principal)
CPT/HCPCS: 95117; 95165

== ENCOUNTER 2025-06-07 08:15 | Outpatient (AMB) | payer BC, SELFPAY ==
--- OUTSIDE RECORDS SUMMARY | 2025-06-07 09:06 | XMS_ITS | Patient Health Record ---
Author Organization [facility] [place] Address [address] [place] [address] Care Team Providers Care Want Ad Supervisor Name Role Phone Geena Cespedes MD Primary Care Provider Jevon Coleman Unavailable [phone] Allergies Allergen (clinical drug ingredient) Drug/Non Drug [...] X ray : Foot, left 3V 11/12/2018 [id number] TENDON SHEATH/LIGAMENT 0 01/09/2019 Insurance Providers Payer Name Payer Address Payer Phone Subscriber Number Group Number Insured Name Patient Relationship to Insured Coverage Start Date [facility] End Date [facility] [address] [place] [phone] [id number] Leia Dennison Self - patient is the insured Medical (General) History Medical History History ICD Code Anxiety disorder asthma Back,Hip,and Knee pain Hypertension Sciatica chronic sinusitis Thyroid disorder Surgical History Surgery Date(Month/Year) knee, meniscus 2004 knee arthroscopy 2002 knee surgery 2005
--- OUTSIDE RECORDS SUMMARY | 2025-06-07 09:06 | XMS_ITS | Patient Health Record ---
Author Organization [facility] Address [address] [place] [address] Care Team Providers Care Melt House Centrifugal Operator Name Role Phone Krish Levy Primary Care [...] Problem Status W/U Status Risk Notes Problem 404872969 Colon cancer screening (Z12.11) Active confirmed Problem 644404252 Gastroesophageal reflux disease without esophagitis (K21.9) Active confirmed Problem 14131499 Abdominal discom fort (R10.9) Active confirmed Problem 645094646 Gas bloat syndro me (K92.89) Active confirmed [...] Insured Coverage Start Date Coverage End Date [facility] [address] [place] [address] [phone] [id number] DRISS NGUYEN Self - patient is the [...]
== END 2025-06-07 08:31 | disposition home or self-care (01) ==
LOC: HO.HMGAL 08:15
PROVIDERS: PCP Physician Assistant; Visit Provider Registered Nurse Emergency
DX: J30.89 Other allergic rhinitis (principal)
CPT/HCPCS: 95117; 95165

== ENCOUNTER 2025-07-02 12:08 | Outpatient (REF) | payer BC, SELFPAY ==
--- NOTE | ~2025-07-02 | XR_ITS ---
EXAMINATION: XR CHEST CLINICAL INFORMATION: J40 - Bronchitis, not specified as acute or chronic COMPARISON: X-ray 10/28/2024 TECHNIQUE: 2 views of the chest were obtained. FINDINGS: The cardiomediastinal silhouette is within normal limits. The lungs are well expanded. There is no focal consolidation, edema, or effusion. No pneumothorax. No acute osseous abnormality. XR/XR chest 2V IMPRESSION: No evidence of acute pulmonary process. Electronically signed by: Bruce Santos MD 07/02/2025 01:27 PM EDT RP
[2025-07-02 20:10] LABS: Resp Syncy Virus RNA Qual PCR NEGATIVE (Negative); SARS COV2 PCR INHOUSE NEGATIVE (Negative)
== END 2025-07-02 12:09 | disposition home or self-care (01) ==
LOC: HO.HMGCX 12:08
PROVIDERS: PCP Physician Assistant; Visit Provider Physician Assistant Medical
DX: J45.31 Mild persistent asthma with (acute) exacerbation (principal); J40 Bronchitis, not specified as acute or chronic; J06.9 Acute upper respiratory infection, unspecified; R06.02 Shortness of breath; R05.9 Cough, unspecified; R53.83 Other fatigue
CPT/HCPCS: 71046; 87637

== ENCOUNTER 2025-07-02 12:08 | Outpatient (AMB) | payer BC, SELFPAY ==
[2025-07-02 12:10] VITALS: BP 146/82; PULSE 85; TEMP 36.8; O2SAT 96; BMI 33.3
--- NOTE | 2025-07-02 12:10 | AM.OFFWIN_ITS ---
Intake Vital Signs 07/02/25 12:10 Height 5 ft 4 in Weight 194 lb BMI 33.3 BP 146/82 H Blood Pressure Location Lt brachial Position Sitting Pulse 85 Pulse Source Pulse Oximeter Temp 98.3 F Temp Source Oral Pulse Oximetry (%) 96 Oxygen Delivery Method Room Air Intake Visit Reasons: EP-?bronchitis Patient Tobacco Use Status: Never used Tobacco Allergies coconut oil Allergy (Severe, Verified 07/02/25 12:10) Hives amoxicillin (Amoxicillin) Allergy (Unknown, Verified 07/02/25 12:10) UNKNOWN azithromycin Allergy (Unknown, Verified 07/02/25 12:10) rash penicillin V Allergy (Unknown, Verified 07/02/25 12:10) rash lisinopril Adverse Reaction (Intermediate, Verified 07/02/25 12:10) Cough Do you need a note to return to daycare/school/sports/work: Yes HPI HPI Comments History of Present Illness Details This is a 59-year-old female with past medical history significant for mild persistent asthma who presented to the walk-in clinic complaining of a productive cough and mild shortness of breath x 1 day. Patient states her cough is productive of yellow sputum. She also reports shortness of breath when lying down but denies any shortness of breath with exertion or shortness of breath during the day. Patient states her symptoms have actually been ongoing for about 2 months since she ran out of her allergy medication (montelukast); however, they worsened yesterday and she did recently re-start this medication. She reports associated nasal congestion and rhinorrhea. She reports occasional chills but denies fevers. She reports feeling fatigued and run down. She denies any recent travel or surgeries. 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 [facility] Medical History Graves disease Elevated LFTs FHx: colon cancer GERD (gastroesophageal reflux disease) Hypertension History of mammogram Anxiety Hypothyroid Hypercholesterolemia Asthma Surgical History History of ankle surgery History of right knee surgery H/O colonoscopy Family History Mother Myocardial infarct, Onset Age: 74 Colon cancer CVD (cardiovascular disease) Sister Colon cancer Paternal Grandmother History of breast cancer Brother DMII (diabetes mellitus, type 2) Social History Housing: Apartment Alcohol intake: current Alcohol type: beer Patient Tobacco Use Status: Never used Tobacco e-Cigarette/Vaping Use: Never Used Second Hand Smoke Exposure: No service: No Current occupational status: employed Current occupation: [email or web address] (human resource consultant) Current occupational exposures/hazards: No Cognitive needs: No Hearing needs: No Vision needs: No Review of Systems Const All systems reviewed & are unremarkable except as noted in HPI and below Reports no additional complaints Eyes Reports no additional complaints ENT Reports no additional complaints Card Reports no additional complaints Resp Reports no additional complaints GI Reports no additional complaints Reports no additional complaints Musc Reports no additional complaints Skin/Breast Reports system reviewed and no additional complaints, except as documented Neuro Reports no additional complaints Psych Reports no additional complaints Endo Reports no additional complaints Enrico/Lymph Reports no additional complaints Aller/Immun Reports no additional complaints Physical Exam Exam Exam: Vital signs reviewed. Constitutional: Non-toxic appearing. No acute distress. Well-developed and well-nourished. HEENT: Normocephalic and atraumatic. Skin: Warm and dry. No rashes or lesions noted. Neck: Full and painless range of motion. No cervical lymphadenopathy. Cardio: Regular rate and rhythm. No murmurs, gallops, or rubs. No lower extremity edema. No JVD. Pulmonary: No respiratory distress. No accessory muscle usage. Scant end expiratory wheezing. Gastrointestinal: Soft, nontender, and nondistended in all 4 quadrants. Musculoskeletal: Normal range of motion in joints throughout the body. No deformity or other signs of injury. Neuro: Alert and oriented x4. Cranial nerves 2-12 grossly intact. No focal deficits appreciated. Psych: Normal mood and affect. Vital Signs: Last Vital Signs Temp 98.3 F 07/02/25 12:10 Pulse 85 07/02/25 12:10 BP 146/82 H 07/02/25 12:10 Pulse Ox 96 07/02/25 12:10 Oxygen Delivery Method Room Air 07/02/25 12:10 BMI result Body Mass Index 33.3 Assessment & Plan Assessment & Plan (1) Asthma exacerbation: Code(s): J45.901 - Unspecified asthma with (acute) exacerbation Qualifiers: Asthma severity: mild Asthma persistence: persistent Qualified Code(s): J45.31 - Mild persistent asthma with (acute) exacerbation (2) Acute upper respiratory infection, unspecified: Code(s): J06.9 - Acute upper respiratory infection, unspecified Plan 59-year-old female with past medical history significant for mild persistent asthma who presented to the walk-in clinic complaining of a productive cough and mild shortness of breath x 1 day. On physical examination, there is scant end expiratory wheezing suggestive of an acute asthma exacerbation likely in the setting of uncontrolled seasonal allergies as well as acute viral upper respiratory tract infection. Patient was given a prescription for PO prednisone 40 mg daily x5 days. Chest x-ray was ordered and obtained to evaluate for evidence of pneumonia although this is considered less likely. I also recommended symptomatic management including rest, increased fluids, advil/tylenol for pain/fever, over the counter throat lozenges/decongestants/mucolytics, and humidification. Patient advised to follow up here or go to the emergency room for worsening/persistent symptoms. Patient verbalized understanding and is agreeable with the plan. Orders: Orders XR chest 2V Today J40 - Bronchitis, not specified as acute or chronic SARS-CoV2/FLU/RSV Today J06.9 - Acute upper respiratory infection, unspecified Medications: New prednisone 40 mg (2 x 20 mg) PO DAILY 10 tabs 0RF Coding Level of Care Code Est Pt Level 3 (43073) Diagnoses Mild persistent asthma with exacerbation J45.31 Asthma severity: mild Asthma persistence: persistent Acute upper respiratory infection, unspecified J06.9
== END 2025-07-02 13:20 | disposition home or self-care (01) ==
PROVIDERS: PCP Physician Assistant; Visit Provider Physician Assistant Medical
DX: J45.31 Mild persistent asthma with (acute) exacerbation (principal); J06.9 Acute upper respiratory infection, unspecified

== ENCOUNTER → 2025-07-02 13:16 | Outpatient (BNV) | payer BC, SELFPAY | PROVIDERS: PCP Physician Assistant; Visit Provider Radiology Diagnostic Ultrasound | DX: J40 Bronchitis, not specified as acute or chronic (principal) | CPT/HCPCS: 71046 ==

== ENCOUNTER 2025-07-22 06:11 | Outpatient (REF) | payer BC, SELFPAY ==
--- OUTSIDE RECORDS SUMMARY | 2025-07-22 06:14 | XMS_ITS | Patient Health Record ---
Author Organization [facility] Address [address] [place] [address] Care Team Providers Care Research Interviewer Name Role Phone Krish Levy Primary Care Provider Fredy John Jr Unavailable [phone] Allergies Allergen (clinical drug ingredient) Drug/Non Drug [...] 30 MINUTES BEFORE MORNING MEAL FOR 30 DAYS; Duration: 30 Active Advair Diskus as needed Active MiraLax (colon prep) 8.3 ounce ((238) grams mixed with Gatorade or Crystal Light orally begin at 5:00 p.m. the day before the procedure; Duration: 1 day 03/11/2020 Active Wixela Inhub 250-50 MCG/ACT 1 puff Inhalation Twice a day Active Immunizations Vaccine Route Administration Date Status Comme nts Influenza Unknown 06/23/2019 Administered Influenza Unknown 07/10/2022 Administered Problems Problem Type SNOMED Code ICD Code Onset Dates Problem Status W/U Status Risk Notes Problem Colon cancer screening (234458226) Colon cancer screening (Z12.11) Active confirmed Problem Gastroesophageal reflux disease without esophagitis (206118257) Gastroesophageal reflux disease without esophagitis (K21.9) Active confirmed Problem Abdominal discomfort (92405389) Abdominal discomfort (R10.9) Active confirmed Problem Abdominal bloating (finding) (346718173) Gas bloat syndrome (K92.89) Active confirmed Plan Of Treatment Pending Test Test Name Order Date LIVER PROFILE 12/05/2022 LIPASE 12/05/2022 CBC w/o DIFF 12/05/2022 US ABD 12/05/2022 Future Test Test Name Order Date COLONOSCOPY 12/01/2014 UPPER GI ENDOSCOPY 03/11/2020 COLONOSCOPY 03/11/2020 Insurance Providers Payer Name Payer Address Payer Phone Subscriber Number Group Number Insured Name Patient Relationship to Insured Coverage Start Date Coverage End Date [facility] [address] [place] [address] [phone] [id number] DRISS NGUYEN Self - patient is the [...]
--- OUTSIDE RECORDS SUMMARY | 2025-07-22 06:14 | XMS_ITS | Patient Health Record ---
Author Organization [facility] dylan [place] Address [address] [place] [address] Care Team Providers Care Drum Builder Name Role Phone Geena Cespedes MD Primary Care Provider Jevon Marinelli [phone] Allergies Allergen (clinical drug ingredient) Drug/Non Drug [...] X ray : Foot, left 3V 11/12/2018 [id number] TENDON SHEATH/LIGAMENT 0 01/09/2019 Insurance Providers Payer Name Payer Address Payer Phone Subscriber Number Group Number Insured Name Patient Relationship to Insured Coverage Start Date Coverage End Date [facility] [address] [place] Good [phone] [id number] Leia Dennison Self - patient is the insured Medical (General) History Medical History History ICD Code Anxiety disorder asthma Back,Hip,and Knee pain Hypertension Sciatica chronic sinusitis Thyroid disorder Surgical History Surgery Date(Month/Year) knee, meniscus 2004 knee arthroscopy 2003 knee surgery 2004
[2025-07-22 08:01] LABS: Free T4 (Free Thyroxine) 1.07 ng/dL (0.71-1.85); Thyroid Stimulating Hormone 3.06 uIU/mL (0.32-4.0)
== END 2025-07-22 06:12 | disposition home or self-care (01) ==
LOC: HO.LAB 06:11
PROVIDERS: PCP Physician Assistant; Visit Provider Student in an Organized Health Care Education/Training Program
DX: E05.00 Thyrotoxicosis with diffuse goiter without thyrotoxic crisis or storm (principal)
CPT/HCPCS: 36415; 84439; 84443; 84480

== ENCOUNTER 2025-08-02 10:33 | Outpatient (REF) | payer BC, SELFPAY ==
--- NOTE | ~2025-08-02 | US_ITS ---
EXAMINATION: US DIAGNOSTIC ULTRASOUND BREAST, RIGHT CLINICAL INFORMATION: This is a 6-month follow-up of right breast solid mass or complicated cyst at 12 o'clock position 2 cm from the nipple, correlating with asymmetry seen in the retroareolar plane on the CC view. COMPARISON: Screening mammogram on December 07, 2024. Right breast mammogram/ultrasound on January 14, 2025. TECHNIQUE: Ultrasound of the breast is performed with real-time mackenzie scale imaging and color Doppler. FINDINGS: Targeted ultrasound was performed at the location of the previously described sonographic finding. The survey shows a 0.7 x 0.4 x 0.5 cm hypoechoic solid mass or complicated cyst at 12 o'clock position 2 cm from the nipple. Prior measurements of 0.7 x 0.4 x 0.5 cm in November 2024. Results are provided to the patient at time of visit by the technologist. US/US Breast RT Limited Mamm Only IMPRESSION: RIGHT BREAST: Hypoechoic solid mass or complicated cyst at 12 o'clock position 2 cm from the nipple, unchanged from December 2024. Probably benign. A 6-month follow-up is recommended as bilateral diagnostic mammogram and right breast ultrasound. ASSESSMENT: Category 3: Probably benign RECOMMENDATION: 6 Month F/U This patient's information was entered into a reminder system with a target due date for their next mammogram. Electronically signed by: Melody Pagan MD 08/02/2025 11:19 AM [place]
== END 2025-08-02 10:34 | disposition home or self-care (01) ==
LOC: HO.MAMMO 10:33
PROVIDERS: PCP Physician Assistant; Visit Provider Physician Assistant
DX: R92.2 Inconclusive mammogram (principal)
CPT/HCPCS: 76642

== ENCOUNTER → 2025-08-02 11:00 | Outpatient (BNV) | payer BC, SELFPAY | PROVIDERS: PCP Physician Assistant; Visit Provider Radiology Body Imaging | DX: R92.30 Dense breasts, unspecified (principal) | CPT/HCPCS: 76642 ==

== ENCOUNTER 2025-09-07 06:07 | Outpatient (REF) | payer BC, SELFPAY ==
--- OUTSIDE RECORDS SUMMARY | 2025-09-07 06:11 | XMS_ITS | Patient Health Record ---
Author Organization [facility] Address [address] [place] [address] Care Team Providers Care Cloth Shader Name Role Phone Krish Levy Primary Care Provider Fredy John Jr Unavailable Allergies Allergen (clinical drug ingredient) Drug/Non Drug Allergy documented on EMR Reaction Allergy Type Onset Date Status amoxicillin Amoxicillin (uncoded) Unknown Allergy Active coconut oil Coconut Oil Unknown Drug Allergy Act merry Reason For Referral No Information Medications Medication SIG (Take, Route, Frequency, Duration) Notes Start Date End Date Status Atorvastatin Calcium 20 MG Tablet 1 tablet Orally Once a day Active Aspir-81 Active Montelukast Sodium 10 MG Tablet 1 tablet Orally Once a day Active Albuterol Sulfate 108 (90 Base) MCG/ACT Aerosol Powder Breath Activated 1 puff as needed Inhalation every 4 hrs Active Levothyroxine Sodium 25 MCG Tablet 1 tablet Orally Once a day Active Lisinopril 20 MG Tablet 1 tablet Orally Once a day Active Vitamin D 1000 UNIT Tablet 1 tablet Oral ly Once a day Active Omeprazole 20 MG Capsule Delayed Release TAKE 1 CAPSULE BY MOUTH EVERY DAY 30 MINUTES BEFORE MORNING MEAL FOR 30 DAYS; Duration: 30 Active Advair Diskus as needed Active MiraLax (colon prep) 8.3 ounce ((238) grams mixed with Gatorade or Crystal Light orally begin at 5:00 p.m. 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 Problems Problem Type SNOMED Code ICD Code Onset Dates Problem Status W/U Status Risk Notes Problem Colon cancer screening (029606384) Colon cancer screening (Z12.11) Active confirmed Problem Gastroesophageal reflux disease without esophagitis (652584797) Gastroesophageal reflux disease without esophagitis (K21.9) Active confirmed Problem Abdominal discomfort (00778568) Abdominal discomfort (R10.9) Active confirmed Problem Abdominal bloating (finding) (828539846) Gas bloat syndrome (K92.89) Active confirmed Plan Of Treatment Pending Test Test Name Order Date LIVER PROFILE 12/05/2022 LIPASE 12/05/2022 CBC w/o DIFF 12/05/2022 US ABD 12/05/2022 Future Test Test Name Order Date COLONOSCOPY 12/01/2014 UPPER GI ENDOSCOPY 03/11/2020 COLONOSCOPY 03/11/2020 Next Appt Details Provider Name:Fredy carlson , 12/16/2025 02:15:00 PM, [address] [place] [address], [address], [place], [address], Insurance Providers Payer Name Payer Address Payer Phone Subscriber Number Group Number Insured Name Patient Relationship to Insured Coverage Start Date Coverage End Date [employer] [address] [place] [address] [id number] Talat TOLENTINOWENDYDRISS SOTO Self - patient is the insured Medical [...]
--- OUTSIDE RECORDS SUMMARY | 2025-09-07 06:11 | XMS_ITS | Patient Health Record ---
Author [facility] [place] Address [address] [place] [address] Care Team Providers Care High Lift Driver Name Role Phone Geena Cespedes MD Primary Care Provider Jevon Marinelli [phone] Allergies Allergen (clinical drug ingredient) Drug/Non Drug [...] X ray : Foot, left 3V 11/12/2018 [id number] TENDON SHEATH/LIGAMENT 0 01/09/2019 Insurance Providers Payer Name Payer Address Payer Phone Subscriber Number Group Number Insured Name Patient Relationship to Insured Coverage Start Date Coverage End Date [facility] [address] [place] [id number] Leia Dennison Self - patient is the insured Medical (General) History Medical History History ICD Code Anxiety disorder asthma Back,Hip,and Knee pain Hypertension Sciatica chronic sinusitis Thyroid disorder Surgical History Surgery Date(Month/Year) knee, meniscus 2004 knee arthroscopy 2003 knee surgery 2004
[2025-09-07 07:17] LABS: White Blood Count 8.9 X10*3/uL (4.8-10.8)
[2025-09-07 07:18] LABS: Hematocrit 38.3 % (37.0-47.0); Hemoglobin 12.0 g/dl (12.0-16.0); Mean Corpuscular HGB Conc 31.3 g/dl (31.0-35.0); Mean Corpuscular Hemoglobin 27.2 pg (27.0-33.0); Mean Corpuscular Volume 86.8 fL (80.0-98.0); NRBC Abs Auto 0.000 X10*3/uL (0.0-0.012); NRBC Pct Auto 0.0 /100WBC (0.0-0.2); Platelet Count 261 X10*3/uL (160-400); Red Blood Count 4.41 X10*6/uL (4.20-5.50)
[2025-09-07 07:49] LABS: Alanine Aminotransferase 21 U/L (0-31); Albumin Level 4.1 g/dL (3.5-5.0); Alkaline Phosphatase 101 U/L (39-117); Anion Gap 13 (12-20); Aspartate Amino Transferase 25 U/L (5-31); Blood Urea Nitrogen 18 mg/dL (9-16); Calcium 9.1 mg/dL (8.4-10.2); Carbon Dioxide 25 mmol/L (22-29); Chloride 110 mmol/L (96-108); Cholesterol 170 mg/dL (<200); Estimated Glomerular Filt Rate > 60; HDL Cholesterol 59 mg/dL (>40); Potassium 4.2 mmol/L (3.3-5.1); Sodium 144 mmol/L (135-145); Total Protein 6.7 g/dL (6.5-8.0); Triglycerides 63 mg/dL (<150)
== END 2025-09-07 06:08 | disposition home or self-care (01) ==
LOC: HO.LAB 06:07
PROVIDERS: PCP Physician Assistant; Visit Provider Physician Assistant
DX: I10 Essential (primary) hypertension (principal); E78.00 Pure hypercholesterolemia, unspecified; E03.9 Hypothyroidism, unspecified
CPT/HCPCS: 36415; 80053; 80061; 84443; 85027

== ENCOUNTER 2025-09-13 07:47 | Outpatient (AMB) | payer BC, SELFPAY ==
--- OUTSIDE RECORDS SUMMARY | 2025-09-13 07:51 | XMS_ITS | Patient Health Record ---
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 [employer] Problems Problem Type SNOMED Code ICD Code Onset Dates Problem Status W/U Status Risk Notes Problem Colon cancer screening (172802130) Colon cancer screening (Z12.11) Active confirmed Problem Gastroesophageal reflux disease without esophagitis (862153839) Gastroesophageal reflux disease without esophagitis (K21.9) Active confirmed Problem Abdominal discomfort (03416051) Abdominal discomfort (R10.9) Active confirmed Problem Abdominal bloating (finding) (052771430) Gas bloat syndrome (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) Active confirmed Plan Of Treatment Pending Test Test Name Order Date LIVER PROFILE 12/05/2022 LIPASE 12/05/2022 CBC w/o DIFF 12/05/2022 US ABD 12/05/2022 Future Test Test Name Order Date COLONOSCOPY 12/01/2014 UPPER GI ENDOSCOPY 03/11/2020 COLONOSCOPY 03/11/2020 Next Appt Details Provider Name:Fredy carlson , 12/16/2025 02:15:00 PM, [address] [place] [address], [address], [place], [address], Insurance Providers Payer Name Payer Address Payer Phone Subscriber Number Group Number Insured Name Patient Relationship to Insured Coverage Start Date Coverage End Date [employer] CLAIM[employer] [address] [place] [address] [id number] Talat TOLENTINOWENDYDRISS SOTO Self - patient is [...]
--- OUTSIDE RECORDS SUMMARY | 2025-09-13 07:51 | XMS_ITS | Patient Health Record ---
[facility] [place] Address [address] [place] [address] Care Team Providers Care Train Station Server Name Role Phone Geena Cespedes MD Primary Care Provider Jevon Marinelli [phone] Allergies Allergen (clinical drug ingredient) Drug/Non Drug [...] X ray : Foot, left 3V 11/12/2018 [id number] TENDON SHEATH/LIGAMENT 0 01/09/2019 Insurance Providers Payer Name Payer Address Payer Phone Subscriber Number Group Number Insured Name Patient Relationship to Insured Coverage Start Date Coverage End Date [facility] [address] [place] [phone] [id number] Leia Dennison Self - patient is the insured Medical (General) History Medical History History ICD Code Anxiety disorder asthma Back,Hip,and Knee pain Hypertension Sciatica chronic sinusitis Thyroid disorder Surgical History Surgery Date(Month/Year) knee, meniscus 2004 knee arthroscopy 2003 knee surgery 2004
--- NOTE | 2025-09-13 07:53 | MHC.PC.OV ---
Vital Signs 09/13/25 07:55 Height 5 ft 4 in Weight 185 lb 5 oz BMI 31.8 BP 122/78 Blood Pressure Location Lt brachial Position Sitting Respiration 18 Pulse 93 Pulse Source Pulse Oximeter Temp 97.5 F Temp Source Temporal Artery Scan Pulse Oximetry (%) 95 Oxygen Delivery Method Room Air Intake Visit Reasons: Annual Exam Medical Asst Required: No Accompanied by: Self / Same As Patient Allergies coconut oil Allergy (Severe, Verified 09/13/25 08:06) Hives amoxicillin (Amoxicillin) Allergy (Unknown, Verified 09/13/25 08:06) UNKNOWN azithromycin Allergy (Unknown, Verified 09/13/25 08:06) rash penicillin V Allergy (Unknown, Verified 09/13/25 08:06) rash lisinopril Adverse Reaction (Intermediate, Verified 09/13/25 08:06) Cough Medication List - Last Reconciled 09/13/25 by Krish Levy PA-C albuterol sulfate 90 mcg/actuation 1 inh inhalation QID PRN 30 days atorvastatin 20 mg PO DAILY fluticasone propion-salmeterol 250-50 mcg/dose (Wixela Inhub) 1 ea inhalation BID 30 days losartan 50 mg PO DAILY 90 days methimazole 2.5 mg (1/2 x 5 mg) PO DAILY montelukast 10 mg PO BEDTIME Tobacco use date assessed: 01/04/25 Dental Screening Dental Screen Date: 01/04/25 HPI Annual Exam HPI Details Patient is a 60-year-old female here today for a PE . Patient has a past medical history significant for moderate persistent asthma, hyperthyroidism, hypertension, hyperlipidemia family history of colon cancer. Anxiety: She reports increased anxiety recently, related to work and home life, which is often worse during the holiday season. She expressed a preference for an as-needed medication rather than a daily regimen like sertraline, and she has previously used lorazepam for situational anxiety, such as during flights. .. Asthma: Has been fairly well controlled with current maintenance inhalers. Rarely has accessory shins and does not report any nighttime awakenings with asthma symptoms. .. Class 1 obesity: Patient does understand her BMI is over 30 will work on being more physically active and adapting to better eating habits to reduce her weight .. Hyperthyroidism: Most recent TSH stabilized. She is followed by [facility], continues on methimazole with good effect. .. Hyperlipidemia: Patient continues on low to moderate bone see statin without any side effect. Will continue to follow fasting lipid panel with goal LDL to remain below 130 .. Hypertension: Blood pressure acceptable today in office. Has been transitioned to losartan from lisinopril due to an [place] related cough. Denies any chest discomfort, dizziness headaches or vision issues. Mammogram: Done in November 2023, BI-RADS 1 Colorectal cancer screening: Colonoscopy [place] [address] Cordero, hyperplastic polyp found, repeat 5 years due to family history. Has upcoming appointment for colonoscopy this spring . 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 Vaccines: Up-to-date with Tdap, up-to-date with COVID-19 vaccine., up-to-date with shingles vaccine , up-to-date with pneumonia vaccine PFSH Medical History Graves disease Elevated LFTs FHx: colon cancer GERD (gastroesophageal reflux disease) Hypertension History of mammogram Anxiety Hypothyroid Hypercholesterolemia Asthma Surgical History History of ankle surgery History of right knee surgery H/O colonoscopy Family History Mother Myocardial infarct, Onset Age: 74 Colon cancer CVD (cardiovascular disease) Sister Colon cancer Paternal Grandmother History of breast cancer Brother DMII (diabetes mellitus, type 2) Social History Housing: Apartment Alcohol intake: current Alcohol type: beer Patient Tobacco Use Status: Never used Tobacco e-Cigarette/Vaping Use: Never Used Second Hand Smoke Exposure: No service: No Current occupational status: employed 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 1. Little interest or pleasure in doing things: not at all 2. Feeling down, depressed, or hopeless: not at all 3. Trouble falling or staying asleep, or sleeping too much: not at all 4. Feeling tired or having little energy: not at all 5. Poor appetite or overeating: not at all 6. Feeling bad about yourself - or that you are a failure or have let yourself or your family down: not at all 7. Trouble concentrating on things, such as reading the newspaper or watching television: not at all 8. Moving or speaking so slowly that other people could have noticed. Or the opposite - being so fidgety or restless that you have been moving around a lot more than usual: not at all 9. Thoughts that you would be better off or of hurting yourself in some way: not at all Total score: 0 Source: Developed by Drs. Chavez Hawk, Mary Ellen Mayes, Odell Crowe and colleagues, with an educational tamar from [employer]. Thrive Questionnaire Date Thrive assessed: 09/13/25 I am a: Patient What is your living situation today?: I choose not to answer this question Within the past 12 months, did the food you bought not last and you didn't have the money to get more?: I choose not to answer this question Within the past 12 months, did you worry whether your food would run out before you got money to buy more?: I choose not to answer this question Do you have trouble paying for medicines?: I choose not to answer this question Do you have trouble getting transportation to medical appointments?: I choose not to answer this question Do you have trouble paying your heating and electricity bill?: I choose not to answer this question Do you have trouble taking care of your child, family member or friend?: I choose not to answer this question Do you have trouble with day-to-day activities such as bathing, preparing meals, shopping, managing finances, etc.?: I choose not to answer this question Are you currently unemployed and looking for a job?: I choose not to answer this question Are you interested in more education?: I choose not to answer this question Please select the resources that you would like help with: None Currently or been in a relationship where the following occur: I choose not to answer THRIVE Score: 0 AUDIT C Alcohol Use Questionnaire (AUDIT-C) 1. How often do you have a drink containing alcohol?: 2-4 times a month 2. How many drinks containing alcohol do you have on a typical day when you are drinking?: 1 or 2 3. How often do you have six or more drinks on one occasion?: Never Total Score: 2 SEPIDEH-7 AMB Questionnaire SEPIDEH-7 Date SEPIDEH - 7 assessed: 09/13/25 Feeling nervous, anxious, or on edge: 0 = Not at all Not being able to stop or control worryin = Not at all Worrying too much about different things: 0 = Not at all Trouble relaxin = Not at all Being so restless that it is hard to sit still: 0 = Not at all Becoming easily annoyed or irritable: 0 = Not at all Feeling afraid as if something awful might happen: 0 = Not at all Total SEPIDEH-7 score (0-4 normal; 5-9 mild; 10-14 moderate; 15-21 severe): 0 Source: Developed by Drs. Chavez Hawk, Mary Ellen Mayes, Odell Crowe and colleagues, with an educational tamar from [employer]. Review of Systems Const Denies body aches, Denies chills, Denies excessive sweating, Denies fatigue, Denies fever(s) and Denies headache(s) Eyes Denies blurry vision ENT Denies dysphagia, Denies vertigo, Denies dizziness, Denies headache(s), Denies hearing loss and Denies tinnitus Card Denies chest pain, Denies chest pain with activity, Denies syncope, Denies irregular heart rhythm and Denies dyspnea Resp Denies chest congestion, Denies cough, Denies hemoptysis, Denies dyspnea and Denies wheezing GI Denies abdominal pain, Denies melena, Denies hematochezia, Denies coffee ground emesis, Denies dysphagia, Denies diarrhea, Denies nausea and Denies vomiting Denies urinary frequency, Denies dysuria, Denies urinary hesitancy and Denies urinary urgency Musc Denies arthralgias, Denies limited range of motion, Denies muscle cramps and Denies muscle weakness Skin/Breast Denies rash and Denies skin ulcer Neuro Denies Abnormal speech present, Denies confusion, Denies vertigo, Denies dizziness, Denies syncope, Denies headache(s), Denies memory loss and Denies seizure-like activity Psych Denies anxiety, Denies confusion, Denies depression, Denies memory loss, Denies panic attacks and Denies paranoia Endo Denies excessive sweating, Denies fatigue, Denies flushing, Denies polydipsia and Denies polyuria Aller/Immun Denies wheezing Physical exam (Primary Care) Vital Signs: Last Vital Signs Temp 97.5 F 09/13/25 07:55 Pulse 93 09/13/25 07:55 Resp 18 09/13/25 07:55 BP 122/78 09/13/25 07:55 Pulse Ox 95 09/13/25 07:55 Oxygen Delivery Method Room Air 09/13/25 07:55 BMI result Body Mass Index 31.8 BMI Assessment/Plan discussion: High BMI High, discussed plan: lifestyle, weight reduction, dietary and physical activity Tobacco/Smoking Status: Tobacco use Status Tobacco use date assessed 01/04/25 09/13/25 07:57 Patient Tobacco Use Status Never used Tobacco 09/13/25 07:57 e-Cigarette/Vaping Use Never Used 09/13/25 07:57 PHQ-9: PHQ-9 Score PHQ-9: Total score 0 09/13/25 07:57 Thrive Assessment: Date of Thrive Assessment Date Thrive assessed 09/13/25 09/13/25 07:57 Currently or been in a relationship where the following occur: I choose not to answer Const General: cooperative, comfortable, no acute distress, alert and awake; No confusion Orientation/consciousness: oriented to person, oriented to place, patient oriented x3 and No confusion HENMT Head: Yes normocephalic Ears: external ears normal and TM's normal bilaterally Face and sinus: No sinus tenderness Mouth: Normal oral and palatal mucosa present and tongue normal Teeth and gingiva: dentition normal and gingiva normal Throat: Yes posterior oropharynx normal, Yes tonsils normal and Yes uvula midline Eyes Conjunctivae: conjunctivae normal Sclerae: sclerae normal Pupils: Equal, round and reactive pupils present EOM: EOMs intact bilaterally Direct Ophthalmoscopy: No no photophobia Neck Neck: Yes no lymphadenopathy, No tender and Yes no JVD Thyroid: Thyroid normal Carotids: no bruits Chest Chest palpation & inspection: no tenderness Resp Effort & Inspection: normal respiratory effort, no audible wheezes, not labored and no stridor Auscultation: no crackles, no rales, no rhonchi and no wheezes Cardio Jugular venous distension: no JVD Rate: regular rate, not bradycardic and not tachycardic Rhythm: regular rhythm Bruits: no carotid bruits Peripheral pulses: Peripheral pulses 2+ throughout GI Inspection: Yes normal to inspection, No abdominal wall ecchymosis and No visible herniation Palpation (GI): Soft to palpation, nontender, no guarding, not rigid and No hepatosplenomegaly present Auscultation: normoactive bowel sounds General: Yes no CVA tenderness Back/Spine/Pelvis Back: no CVA tenderness and No back tenderness Cervical Spine: cervical ROM normal Thoracic/Lumbar Spine: thoracic and lumbar spine normal to inspection, straight leg raise negative bilaterally, No thoraco-lumbar ROM limited and No lumbar spinal tenderness Skin Lesions: no lesions Rashes: no rashes Wounds: no wounds Neuro General: oriented to person, oriented to place, patient oriented x3, CN's II-XI intact bilaterally and No confusion Cranial nerves: Yes Equal, round and reactive pupils present and Yes Normal accommodation reflex present Cognition (Neuro): normal cognition Speech: No Abnormal speech present Gait exam (Neuro): Normal gait present Motor exam (neuro): 5/5 motor strength present throughout Extrem Right upper extremity: full ROM; no cyanosis Left upper extremity: full ROM; no cyanosis Right lower extremity: no edema Left lower extremity: no edema Psych Appearance: grossly normal Mental Status: mental status grossly normal Affect: normal affect Attitude: cooperative Thought process: Normal thought process present Coding Level of Care Code Est Pt Prev Care 40-64y([id number]) Diagnoses Annual physical exam Z00.00 Hyperthyroidism E05.90 Mild persistent asthma without complication J45.30 Asthma severity: mild Asthma persistence: persistent Asthma complication type: uncomplicated Hypercholesterolemia E78.00 Essential (primary) hypertension I10 SEPIDEH (generalized anxiety disorder) F41.1 Assessment & Plan Assessment & Plan (1) Annual physical exam: Code(s): Z00.00 - Encounter for general adult medical examination without abnormal findings Category: Medical Plan: As per HPI (2) Hyperthyroidism: Code(s): E05.90 - Thyrotoxicosis, unspecified without thyrotoxic crisis or storm Category: Medical Plan: Patient now followed by [facility]. She continues on methimazole with good effect. Most recent TSH stabilized.. She reports she feels well. She will continue her follow-up with endocrinology. (3) Asthma: Code(s): J45.909 - Unspecified asthma, uncomplicated Category: Medical Qualifiers: Asthma severity: mild Asthma persistence: persistent Asthma complication type: uncomplicated Qualified Code(s): J45.30 - Mild persistent asthma, uncomplicated Plan: Patient reports her asthma has been fairly well controlled with p.r.n. use of her albuterol inhaler and daily use of her maintenance inhaler. No recent asthma exacerbations or nighttime awakenings with asthma symptoms. (4) Hypercholesterolemia: Code(s): E78.00 - Pure hypercholesterolemia, unspecified Category: Medical Plan: Most recent lipid panel acceptable. She will continue with atorvastatin 20 mg. Goal LDL to remain below 130 (5) Essential (primary) hypertension: Code(s): I10 - Essential (primary) hypertension Category: Medical Plan: Patient's blood pressure acceptable today in office. She continues on losartan 50 mg with good effect on her blood pressure. Goal blood pressure to remain below 140/90 (6) SEPIDEH (generalized anxiety disorder): Code(s): F41.1 - Generalized anxiety disorder Category: Medical Plan: For management of anxiety, the patient declined a daily medication and preferred an as-needed option. A prescription for lorazepam, 10 tablets with refills, will be sent to her pharmacy for sparse use in situations of high anxiety or for sleep. Non-pharmacological strategies, such as walking, were also encouraged Orders: Orders TSH reflex Free T4 Today E05.90 - Thyrotoxicosis, unspecified without thyrotoxic crisis or storm Comprehensive [place]. Panel Fast Today I10 - Essential (primary) hypertension Microalbumin, Random (w Creat) Today I10 - Essential (primary) hypertension Complete Blood Count no Diff Today I10 - Essential (primary) hypertension Lipid Panel Today E78.00 - Pure hypercholesterolemia, unspecified Medications: New lorazepam (Ativan) 0.5 mg PO BID PRN 10 tabs 2RF anxiety 5 days F41.1 - Generalized anxiety disorder
[2025-09-13 07:55] VITALS: BP 122/78; PULSE 93; RESP 18; TEMP 36.4; O2SAT 95; BMI 31.8
== END 2025-09-13 08:17 | disposition home or self-care (01) ==
LOC: HO.HMCH 07:48
PROVIDERS: PCP Physician Assistant; Visit Provider Physician Assistant
DX: Z00.00 Encounter for general adult medical examination without abnormal findings (principal); E05.90 Thyrotoxicosis, unspecified without thyrotoxic crisis or storm; J45.30 Mild persistent asthma, uncomplicated; E78.00 Pure hypercholesterolemia, unspecified; I10 Essential (primary) hypertension; F41.1 Generalized anxiety disorder